=== PATIENT | female | born 1950 | race Caucasian/White ===

== ENCOUNTER 2017-10-03 22:01 | Inpatient (IN) | payer OTHER, BC ==
[~2017-10-03] VITALS: Ht 152.4 cm; Wt 96.2 kg
[2017-10-03] MEDS ORDERED: ALBUT/IPRATROP 3MG/0.5MG NEB 3 ML VIAL INH STA (22:12)
--- NOTE | 2017-10-03 22:20 | EMERGENCY ROOM VISIT NOTE ---
History Report prepared by Chava: Karen Cespedes Under the Supervision of: Dr. Praneeth Elizalde M.D. 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 The patient states that she was at [place] for shortness of breath and an elevated INR. She was transferred here for direct admission but developed sudden worsening shortness of breath en route. She reports that she has a history of COPD and notes that the medic smelled like smoke and feels that may have triggered her onset. The patient notes that she had a breathing treatment en route and her symptoms worsened after the treatment. She denies any fever. 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 A total of 10 systems reviewed and were otherwise negative. Past Medical & Surgical Medical Problems: (1) Acute respiratory failure with hypoxia (2) Acute systolic CHF (congestive heart failure), NYHA class 3 Old medical records were reviewed. Nurse's notes were reviewed and I agree with. Family History No pertinent family history stated. Social History Marital Status: single Occupation Status: retired Current/Historical Medications Scheduled Albuterol Sulf (Proventil 0.083% 2.5MG/3ML), 2.5 MG INH BID Ascorbic Acid (Chewable Vitamin C), 500 MG PO QAM Aspirin (Aspirin 81), 81 MG PO DAILY Budesonide (Inhalation) (Pulmicort Respules 0.25MG/2ML), 2 ML INH BID Cholecalciferol (Vitamin D3), 3 CAP PO DAILY Cyanocobalamin (Vitamin B-12), 1,000 MCG PO DAILY Diphenhydramine Hcl (Benadryl Allergy), 25 MG PO QAM Ezetimibe (Zetia), 10 MG PO DAILY Furosemide (Lasix), 40 MG PO QAM Hydrocortisone (Hydrocortisone), 1 APPLN TOP BID Insulin Glargine (Lantus), 45 UNITS SC QPM Magnesium Oxide (Mag-Ox), 400 MG PO AMPM Metoprolol Succ (Toprol Xl) (Toprol-Xl), 25 MG PO DAILY Montelukast Sodium (Singulair), 10 MG PO HS Mupirocin 2% (Bactroban 2%), 1 APPLN EXT BID Oxybutynin Chloride Er (Ditropan Xl), 10 MG PO DAILY Potassium (Potassium), 99 MG PO DAILY Simvastatin (Zocor), 40 MG PO QPM Tramadol (Ultram), 100 MG PO Q8 Warfarin Sod (Coumadin), 9 MG PO AMPM Scheduled PRN Albuterol Hfa (Ventolin Hfa), 2 PUFFS INH Q6H PRN for SOB/Wheezing Cyclobenzaprine Hcl (Flexeril), 10 MG PO BID PRN for Muscle Spasms Diphenhydramine Hcl (Benadryl Allergy), 25 MG PO Q4 PRN for Itching Epinephrine (Epipen), 0.3 MG IM UD PRN for Allergic Reaction Lorazepam (Ativan), 0.5 MG PO BID PRN for Anxiety Nitroglycerin (Nitrolingual Pumpspray), 0.4 MG PO UD PRN for Chest Pain Allergies Coded Allergies: Azithromycin (Verified Allergy, Severe, GI SYMPTOMS, 10/03/17) Ephedrine (Verified Allergy, Severe, GI SYMPTOMS, 10/03/17) Erythromycin (Verified Allergy, Severe, GI SYMPTOMS, 10/03/17) Hydroxyzine (Verified Allergy, Severe, GI SYMPTOMS, 10/03/17) Nitrofurantoin (Verified Allergy, Severe, GI SYMPTOMS, 10/03/17) Theophylline (Verified Allergy, Severe, GI SYMPTOMS, 10/03/17) Physical Exam Vital Signs Date Time Temp Pulse Resp B/P (MAP) Pulse Ox O2 Delivery O2 Flow Rate FiO2 10/03/17 22:53 95 10/03/17 22:35 89 22 97 BiPAP/CPAP 40 10/03/17 22:32 98 97 10/03/17 22:14 37.2 111 26 128/91 98 Nasal Cannula 4.0 10/03/17 22:13 113 Physical Exam General: ill appearing older female. HEENT: Normal cephalic atraumatic. Pupils are equal round and reactive to light. Extraocular movements are intact. Oropharynx is pink with moist mucous membranes. No swelling of the mouth lips or tongue. Neck: Supple with a midline trachea. No meningeal signs or stiffness, no JVD or bruits. No Stridor. Chest: Moderately tachypneic, complaining of shortness of breath, crackles in bases. Heart: irregularly irregular rate and rhythm. Abdomen: Soft nontender, nondistended without rebound guarding or rigidity. Extremities: No cyanosis or clubbing. Lower extremity edema noted. No calf tenderness or assymetry Spine/Back. Non tender to palpation. No CVA tenderness Skin: Good turgor without rashes. Neurologic exam: Cranial nerves two through 12 are intact. Motor and sensation are intact and symmetrical throughout. Medical Decision & Procedures ER Provider Diagnostic Interpretation: X-ray results as stated below per interpretation by me and the radiologist: CHEST ONE VIEW PORTABLE FINDINGS: There are postsurgical changes of midline sternotomy. The heart is enlarged. There is elevation of the interstitium consistent with mild pulmonary vascular congestion/fluid overload. There is no lobar consolidation. There are no pleural effusions.[ IMPRESSION: Cardiomegaly and radiographic evidence of mild congestive failure/fluid overload Electronically signed by: Lyndon Virgen M.D. 10/03/2017 10:45 PM Dictated Date/Time: 10/03/2017 10:44 PM Laboratory Results 10/03/17 22:51 Red Blood Count 3.90, Mean Corpuscular Volume 91.0, Mean Corpuscular Hemoglobin 28.5, Mean Corpuscular Hemoglobin Concent 31.3, Mean Platelet Volume 12.4, Neutrophils (%) (Auto) 75.6, Lymphocytes (%) (Auto) 17.1, Monocytes (%) (Auto) 5.8, Eosinophils (%) (Auto) 0.9, Basophils (%) (Auto) 0.3, Neutrophils # (Auto) 8.89, Lymphocytes # (Auto) 2.01, Monocytes # (Auto) 0.68, Eosinophils # (Auto) 0.10, Basophils # (Auto) 0.03 10/03/17 22:51 Test 10/03/17 22:51 White Blood Count 11.74 K/uL (4.8-10.8) Red Blood Count 3.90 M/uL (4.2-5.4) Hemoglobin 11.1 g/dL (12.0-16.0) Hematocrit 35.5 % (37-47) Mean Corpuscular Volume 91.0 fL (80-100) Mean Corpuscular Hemoglobin 28.5 pg (25-34) Mean Corpuscular Hemoglobin Concent 31.3 g/dl (32-36) Platelet Count 178 K/uL (130-400) Mean Platelet Volume 12.4 fL (7.4-10.4) Neutrophils (%) (Auto) 75.6 % Lymphocytes (%) (Auto) 17.1 % Monocytes (%) (Auto) 5.8 % Eosinophils (%) (Auto) 0.9 % Basophils (%) (Auto) 0.3 % Neutrophils # (Auto) 8.89 K/uL (1.4-6.5) Lymphocytes # (Auto) 2.01 K/uL (1.2-3.4) Monocytes # (Auto) 0.68 K/uL (0.11-0.59) Eosinophils # (Auto) 0.10 K/uL (0-0.5) Basophils # (Auto) 0.03 K/uL (0-0.2) RDW Standard Deviation 52.8 fL (36.4-46.3) RDW Coefficient of Variation 15.9 % (11.5-14.5) Immature Granulocyte % (Auto) 0.3 % Immature Granulocyte # (Auto) 0.03 K/uL (0.00-0.02) Prothrombin Time 28.6 SECONDS (9.0-12.0) Prothromb Time International Ratio 2.8 (0.9-1.1) Activated Partial Thromboplast Time 35.4 SECONDS (21.0-31.0) Partial Thromboplastin Ratio 1.4 Anion Gap 8.0 mmol/L (3-11) Est Creatinine Clear Calc Drug Dose 69.1 ml/min Estimated GFR () 78.8 Estimated GFR (Non- 68.0 BUN/Creatinine Ratio 24.5 (10-20) Calcium Level 8.4 mg/dl (8.5-10.1) Total Bilirubin 0.6 mg/dl (0.2-1) Direct Bilirubin 0.3 mg/dl (0-0.2) Aspartate Amino Transf (AST/SGOT) 224 U/L (15-37) Alanine Aminotransferase (ALT/SGPT) 142 U/L (12-78) Alkaline Phosphatase 117 U/L (45-117) Total Creatine Kinase 137 U/L (26-192) Creatine Kinase MB 3.2 ng/ml (0.5-3.6) Creatine Kinase MB Ratio 2.3 (0-3.0) Total Protein 6.8 gm/dl (6.4-8.2) Albumin 3.5 gm/dl (3.4-5.0) Lipase 110 U/L (73-393) Laboratory studies as stated above per my review. Medications Administered Medications (Trade) Dose Ordered Sig/Naun Route Start Time Stop Time Status Last Admin Dose Admin Albuterol/ Ipratropium (Duoneb) 3 ml NOW STAT INH 10/03/17 22:12 10/03/17 22:15 DC 10/03/17 22:12 3 ML ECG Indication: chest pain, SOB/dyspnea Rate (beats per minute): 119 Rhythm: atrial fibrillation Findings: LBBB, other (poor baseline) Comparison ECG Date: no prior available ED Course 2208: Past medical records reviewed. The patient was evaluated in room C2, and a complete history and physical examination were performed. 2212: Duoneb 3ml INH. 2247: I reevaluated the patient. She is doing well. 2319: Discussed the patient's case with Dr. Rutledge of [facility]. The patient will be evaluated for further management. 2322: Upon reevaluation, the patient is doing well. I discussed the results and treatment plan with the patient. She verbalized agreement of the treatment plan. The patient will be evaluated for further management. Medical Decision Differentials include, but are not limited to; CHF, COPD, pneumonia, sepsis, arrhythmia electrolyte or metabolic abnormality. This patient comes in as described above. She is sent from [place] as a direct admit but on route she got significantly worse and had shortness of breath so they put her in C1 and overhead paged for a doctor STAT. I promptly went into the room and she was tachypneic. She apparently had a significant elevated INR today and received fluids in the form of FFP. She also received Lasix. She also said in the room route in the ambulance that one of the paramedics smell like smoke on his clothes and that triggers her breathing at times as well. Her lungs sounded crackly and I believe she is in CHF. We called respiratory started her on BiPAP which she responded to very well and was comfortable. We also gave her albuterol Atrovent nebs. EKG shows A. fib without ischemic changes chest x-ray shows congestive heart failure. Her blood work was otherwise not significantly abnormal. She does need to be admitted Dr. Howard who saw her in the ER will admit her for further treatment and evaluation and he has ordered additional Lasix. Medication Reconcilliation Current Medication List: was personally reviewed by me Blood Pressure Screening Patient's blood pressure: Normal blood pressure Blood pressure disposition: Did not require urgent referral Consults Time Called: 2309 Consulting Physician: Dr. Rutledge - [facility] Returned Call: [phone] Discussed the patient's case with Dr. Rutledge of [facility]. The patient will be evaluated for further management. Impression Primary Impression: CHF (congestive heart failure) Additional Impression: Respiratory failure Critical Care I have personally spent greater than 30 minutes of critical care time in the direct management of this patient. This includes bedside care, interpretation of diagnostic studies, and testing, discussion with consultants, patient, and family members, and other required patient management activities. This 30 minutes is in excess of all separately billable procedures. Scribe Attestation The scribe's documentation has been prepared under my direction and personally reviewed by me in its entirety. I confirm that the note above accurately reflects all work, treatment, procedures, and medical decision making performed by me. Departure Information Dispostion Being Evaluated By Hospitalist Referrals John Howard M.D. (PCP) Patient Instructions My [facility] Problem Qualifiers
[2017-10-03 22:32] VITALS: PULSE 98; O2SAT 97
[2017-10-03 22:35] VITALS: PULSE 89; O2SAT 97
--- NOTE | 2017-10-03 22:46 | DIAGNOSTIC IMAGING REPORT ---
CHEST ONE VIEW PORTABLE CLINICAL HISTORY: Atypical chest pain COMPARISON STUDY: No previous studies for comparison. FINDINGS: There are postsurgical changes of midline sternotomy. The heart is enlarged. There is elevation of the interstitium consistent with mild pulmonary vascular congestion/fluid overload. There is no lobar consolidation. There are no pleural effusions.[ IMPRESSION: Cardiomegaly and radiographic evidence of mild congestive failure/fluid overload Electronically signed by: Lyndon Virgen M.D. 10/03/2017 10:45 PM Dictated Date/Time: 10/03/2017 10:44 PM
[2017-10-03 23:18] LABS: BASO % 0.3 %; BASO ABS # 0.03 K/uL (0-0.2); EOS % 0.9 %; HEMATOCRIT 35.5 % (37-47); HEMOGLOBIN 11.1 g/dL (12.0-16.0); IG# 0.03 K/uL (0.00-0.02); LYMPH % 17.1 %; LYMPH ABS # 2.01 K/uL (1.2-3.4); MEAN CORPUSCULAR HEMOGLOBIN 28.5 pg (25-34); MEAN CORPUSCULAR HGB CONC 31.3 g/dl (32-36); MEAN PLATELET VOLUME 12.4 fL (7.4-10.4); MONO % 5.8 %; MONO ABS # 0.68 K/uL (0.11-0.59); NEUT % 75.6 %; NEUT ABS # 8.89 K/uL (1.4-6.5); PLATELET COUNT 178 K/uL (130-400); RED CELL DISTRIBUTION WIDTH CV 15.9 % (11.5-14.5); RED CELL DISTRIBUTION WIDTH SD 52.8 fL (36.4-46.3); WHITE BLOOD COUNT 11.74 K/uL (4.8-10.8)
[2017-10-03] MEDS ORDERED: CYAN10005 PO (23:20)
[2017-10-03] MEDS ORDERED: ASPI-435 PO (23:20)
[2017-10-03] MEDS ORDERED: MAGN400T6 PO (23:20)
[2017-10-03] MEDS ORDERED: ASCO500C19 PO (23:20)
[2017-10-03] MEDS ORDERED: EPP3/2 IM (23:21)
[2017-10-03] MEDS ORDERED: VNTHFA/IN INH (23:21)
[2017-10-03] MEDS ORDERED: FRS/40 PO (23:22)
[2017-10-03] MEDS ORDERED: ALBINS/ INH (23:22)
[2017-10-03] MEDS ORDERED: BUDE0.253 INH (23:22)
[2017-10-03] MEDS ORDERED: METO25TA3 PO (23:22)
[2017-10-03] MEDS ORDERED: MONT1TAB3 PO (23:24)
[2017-10-03] MEDS ORDERED: NITR0.4S74 PO (23:24)
[2017-10-03] MEDS ORDERED: SIMV40TA2 PO (23:24)
[2017-10-03] MEDS ORDERED: EZET10TA63 PO (23:24)
[2017-10-03] MEDS ORDERED: TRAM-10 PO (23:24)
[2017-10-03 23:29] LABS: INR 2.8 (0.9-1.1); PTT PATIENT 35.4 SECONDS (21.0-31.0)
[2017-10-03] MEDS ORDERED: POTA99TA PO (23:29)
[2017-10-03] MEDS ORDERED: CMD3 PO (23:29)
[2017-10-03] MEDS ORDERED: BCTCR/30 EXT (23:29)
[2017-10-03] MEDS ORDERED: INSDGI SC (23:29)
[2017-10-03] MEDS ORDERED: HYDCR25 TOP (23:29)
[2017-10-03] MEDS ORDERED: OXYB10TA PO (23:29)
[2017-10-03] MEDS ORDERED: CYCL10TA6 PO (23:29)
[2017-10-03] MEDS ORDERED: DIPH25CA65 PO ×2 (23:31)
[2017-10-03] MEDS ORDERED: LORA-741 PO (23:32)
[2017-10-03] MEDS ORDERED: CHOL2000 PO (23:32)
--- NOTE | 2017-10-03 23:41 | History and Physical ---
History & Physical Date & Time of Service: Oct 03, 2017 at 23:41 Chief Complaint: Chest Pain Primary Care Physician: John Howard M.D. History of Present Illness Source: patient, hospital records The patient is a 66-year-old female who was accepted in transfer from [facility] emergency department after having laboratories showing a supratherapeutic INR of greater than 8, and elevated troponin of 0.068. While at [facility], she received vitamin K 10 mg by mouth and 2 units of FFP. Upon arrival to the emergency department at [facility], she was found to be acutely short of breath, and diverted from direct admission status to the ED for further urgent assessment. She was found to be hypoxic, with pulse ox in the low 80s, and had relatively quick improvement when placed on BiPAP with settings 12/6 at 40% FiO2. Family History Noncontributory Social History Smoking Status: Never Smoker Smokeless Tobacco Use: No Alcohol Use: none Drug Use: none Marital Status: single Occupational Status: retired Immunizations History of Influenza Vaccine: Unknown History of Tetanus Vaccine?: Unknown History of Pneumococcal: Unknown History of Hepatitis B Vaccine: Unknown Multi-Drug Resistant Organisms History of MDRO: No Allergies Coded Allergies: Azithromycin (Verified Allergy, Severe, GI SYMPTOMS, 10/03/17) Ephedrine (Verified Allergy, Severe, GI SYMPTOMS, 10/03/17) Erythromycin (Verified Allergy, Severe, GI SYMPTOMS, 10/03/17) Hydroxyzine (Verified Allergy, Severe, GI SYMPTOMS, 10/03/17) Nitrofurantoin (Verified Allergy, Severe, GI SYMPTOMS, 10/03/17) Theophylline (Verified Allergy, Severe, GI SYMPTOMS, 10/03/17) Home Medications Scheduled Albuterol Sulf (Proventil 0.083% 2.5MG/3ML), 2.5 MG INH BID Ascorbic Acid (Chewable Vitamin C), 500 MG PO QAM Aspirin (Aspirin 81), 81 MG PO DAILY Budesonide (Inhalation) (Pulmicort Respules 0.25MG/2ML), 2 ML INH BID Cholecalciferol (Vitamin D3), 3 CAP PO DAILY Cyanocobalamin (Vitamin B-12), 1,000 MCG PO DAILY Diphenhydramine Hcl (Benadryl Allergy), 25 MG PO QAM Ezetimibe (Zetia), 10 MG PO DAILY Furosemide (Lasix), 40 MG PO QAM Hydrocortisone (Hydrocortisone), 1 APPLN TOP BID Insulin Glargine (Lantus), 45 UNITS SC QPM Magnesium Oxide (Mag-Ox), 400 MG PO AMPM Metoprolol Succ (Toprol Xl) (Toprol-Xl), 25 MG PO DAILY Montelukast Sodium (Singulair), 10 MG PO HS Mupirocin 2% (Bactroban 2%), 1 APPLN EXT BID Oxybutynin Chloride Er (Ditropan Xl), 10 MG PO DAILY Potassium (Potassium), 99 MG PO DAILY Simvastatin (Zocor), 40 MG PO QPM Tramadol (Ultram), 100 MG PO Q8 Warfarin Sod (Coumadin), 9 MG PO AMPM Scheduled PRN Albuterol Hfa (Ventolin Hfa), 2 PUFFS INH Q6H PRN for SOB/Wheezing Cyclobenzaprine Hcl (Flexeril), 10 MG PO BID PRN for Muscle Spasms Diphenhydramine Hcl (Benadryl Allergy), 25 MG PO Q4 PRN for Itching Epinephrine (Epipen), 0.3 MG IM UD PRN for Allergic Reaction Lorazepam (Ativan), 0.5 MG PO BID PRN for Anxiety Nitroglycerin (Nitrolingual Pumpspray), 0.4 MG PO UD PRN for Chest Pain Review of Systems The patient denies chest pain, sore throat, fevers, chills, sweats, nausea, vomiting, diarrhea or constipation, abdominal pain, pelvic pain, blood in urine or stool, dysuria, urinary frequency or urgency, memory loss, loss of consciousness, rash, imbalance, focal weakness, numbness or tingling in arms or legs, generalized arthralgias or myalgias, back or neck pain, or night sweats. The review of systems is otherwise negative other than for that already noted above, and at least 10 systems have been reviewed. Physical Exam Vital Signs Date Time Temp Pulse Resp B/P (MAP) Pulse Ox O2 Delivery O2 Flow Rate FiO2 10/03/17 22:53 95 10/03/17 22:35 89 22 97 BiPAP/CPAP 40 10/03/17 22:32 98 97 10/03/17 22:14 37.2 111 26 128/91 98 Nasal Cannula 4.0 10/03/17 22:13 113 Upon initial arrival to the ED at [facility], The patient is awake, alert and oriented 3, normocephalic and atraumatic, placed in bed, and was in moderately severe respiratory distress with paradoxic accessory muscle use. HEENT--PERRL, EOMI, mucous membranes and oropharynx dry. Neck--supple, + JVD. No bruits. thyroid normal, trachea midline, no adenopathy. Heart--tachycardic, no murmurs, rubs or gallops. Lungs--crackles throughout. Moderately severe respiratory distress, with paradoxic accessory muscle use. Abdomen--normal bowel sounds and soft, nontender. Distended and tympanitic. Extremities--no cyanosis, clubbing. Bilateral pretibial 1+ pitting edema. There are good distal pulses b/l. Dermatologic--normal skin turgor, normal color, warm and dry, no abnormal lymph nodes, no rash. Neurologic--cranial nerves II through XII grossly intact. Rheumatologic--normal range of motion. Psychiatric--normal affect. Diagnostics Laboratory Results Results Past 24 Hours Test 10/03/17 22:12 10/03/17 22:51 Range/Units Creatine Kinase MB Ratio 0-3.0 White Blood Count 11.74 4.8-10.8 K/uL Red Blood Count 3.90 4.2-5.4 M/uL Hemoglobin 11.1 12.0-16.0 g/dL Hematocrit 35.5 37-47 % Mean Corpuscular Volume 91.0 80-100 fL Mean Corpuscular Hemoglobin 28.5 25-34 pg Mean Corpuscular Hemoglobin Concent 31.3 32-36 g/dl Platelet Count 178 130-400 K/uL Mean Platelet Volume 12.4 7.4-10.4 fL Neutrophils (%) (Auto) 75.6 % Lymphocytes (%) (Auto) 17.1 % Monocytes (%) (Auto) 5.8 % Eosinophils (%) (Auto) 0.9 % Basophils (%) (Auto) 0.3 % Neutrophils # (Auto) 8.89 1.4-6.5 K/uL Lymphocytes # (Auto) 2.01 1.2-3.4 K/uL Monocytes # (Auto) 0.68 0.11-0.59 K/uL Eosinophils # (Auto) 0.10 0-0.5 K/uL Basophils # (Auto) 0.03 0-0.2 K/uL RDW Standard Deviation 52.8 36.4-46.3 fL RDW Coefficient of Variation 15.9 11.5-14.5 % Immature Granulocyte % (Auto) 0.3 % Immature Granulocyte # (Auto) 0.03 0.00-0.02 K/uL Prothrombin Time 28.6 9.0-12.0 SECONDS Prothromb Time International Ratio 2.8 0.9-1.1 Activated Partial Thromboplast Time 35.4 21.0-31.0 SECONDS Partial Thromboplastin Ratio 1.4 Microbiology Results 10/03/17 Blood Culture, Received Pending 10/03/17 Blood Culture, Received Pending Diagnostic Radiology Patient Name: TORIN ANDERS Unit Number: [id number] Dictated: 10/03/172243 Transcribed: 10/03/172243 ARG Printed Date/Time: [~ rep prt dt]/[~ rep prt tm] [~ rep ct labl] - [~ rep ct ivnm] [facility] [place] [address] Dictated: 10/03/172243 Transcribed: 10/03/172243 ARG Printed Date/Time: [~ rep prt dt]/[~ rep prt tm] [~ rep ct labl] - [~ rep ct ivnm] CHEST ONE VIEW PORTABLE CLINICAL HISTORY: Atypical chest pain COMPARISON STUDY: No previous studies for comparison. FINDINGS: There are postsurgical changes of midline sternotomy. The heart is enlarged. There is elevation of the interstitium consistent with mild pulmonary vascular congestion/fluid overload. There is no lobar consolidation. There are no pleural effusions.[ IMPRESSION: Cardiomegaly and radiographic evidence of mild congestive failure/fluid overload Electronically signed by: Lyndon Virgen M.D. 10/03/2017 10:45 PM Dictated Date/Time: 10/03/2017 10:44 PM The status of this report is Signed. Draft = Not yet reviewed or approved by Radiologist. Signed = Reviewed and approved by Radiologist. <AttendingPhy></AttendingPhy> <FamilyPhy>John Howard M.D.</FamilyPhy> < PrimaryPhy>John Howard M.D.</PrimaryPhy> <UnitNumber>[id number]</UnitNumber> < VisitNumber>[id number]</VisitNumber> <PatientName>TORIN ANDERS</PatientName> <DateOfBirth>1950</DateOfBirth> <Location>[facility]</Location> <ServiceDate></ServiceDate> <MNE>ESINDI</MNE> <OrderingPhy>Praneeth Elizalde M.D.</ OrderingPhy> <OrderingPhyMNE>f rep ord dr woods</OrderingPhyMNE> <DictatingPhyMNE> f rep dict dr woods</DictatingPhyMNE> <CCListMNE>f rep ct peggy</CCListMNE> < AdmittingPhyMNE>f pt admit dr woods</AdmittingPhyMNE> <AttendingPhyMNE>f pt attend dr woods</AttendingPhyMNE> <ConsultingPhyMNE>f pt consult dr woods</ConsultingPhyMNE> <FamilyPhyMNE>f pt fam dr woods</FamilyPhyMNE> <OtherPhyMNE>f pt other dr woods</OtherPhyMNE> < PrimaryPhyMNE>f pt prim care dr woods</PrimaryPhyMNE> <ReferringPhyMNE>f pt referring dr woods</ReferringPhyMNE> EKG EKG shows atrial fibrillation with RVR at 119 bpm, left bundle branch block, PVCs, no acute ST-T changes. Impression Assessment and Plan Acute respiratory failure with hypoxia likely secondary to administration of 2 units of FFP while at [facility] ED to reverse supratherapeutic INR greater than 8/upon arrival we found that patient does have a [place] with an LVAD placed as well-- The patient will be admitted to telemetry for serial cardiac enzymes, cardiac rhythm monitoring and a 2-D echocardiogram with Dopplers. Continue BiPAP 12/6 with 40% FiO2. Chest x-ray shows congestive heart failure Give Lasix 40 mg IV now, and 40 mg IV every morning. Taper BiPAP to nasal cannula when clinically improved. Continue aspirin 81 mg daily, hold oral furosemide 40 mg every morning, continue metoprolol succinate ER [address] on potassium 40 mEq by mouth 3 times a day, as entrance potassium in the ED here was 3.2. Continue on mag oxide 400 mg by mouth twice a day. Patient reports that her warfarin dosing had been 3 mg in the morning and 12 mg in the evening, and was recently changed to 9 mg twice a day. Patient's INR had been supratherapeutic at greater than 8 we'll clear for hospital, and repeat at [facility] is 2.8. Repeat INR in the a.m., and pending that result, we will dose Coumadin at that time. Consult cardiology. Diabetes mellitus-- Continue Lantus insulin 45 units subcutaneous every evening. Place on Accu-Cheks before meals and at bedtime with NovoLog coverage per scale. Next Hyperlipidemia-- Continue simvastatin 40 mg every evening and Zetia 10 mg daily COPD-- Continue Pulmicort Respules twice a day Continue Singulair 10 mg at bedtime Continue albuterol nebulizer every 4 hours while awake and every 2 hours when necessary. Level of Care Telemetry Advanced Directives Existing Advance Directive: No Existing Living Will: No Existing Power of Maintenance Specialist: No Resuscitation Status FULL RESUSCITATION VTE Prophylaxis VTE Risk Assessment Done? Y/N: Yes Risk Level: Moderate Given or contraindicated: Warfarin (Coumadin) Note Total Time: Critical Care 30 - 74 minutes
[2017-10-03 23:46] LABS: ALBUMIN 3.5 gm/dl (3.4-5.0); CALCIUM 8.4 mg/dl (8.5-10.1); CREATININE 0.88 mg/dl (0.60-1.20); POTASSIUM 3.2 mmol/L (3.5-5.1)
[2017-10-03 23:51] LABS: CKMB 3.2 ng/ml (0.5-3.6); TOTAL PROTEIN 6.8 gm/dl (6.4-8.2)
[2017-10-04] VITALS (9 sets, daily range): BP systolic 115–182; BP diastolic 68–82; PULSE 73–110; TEMP 36.4–37.1; O2SAT 95–100; BMI 46.5
[2017-10-04] MEDS ORDERED: NITROGLYCERIN 0.4 MG SL PER TAB CHARGE SL PRN
[2017-10-04] MEDS ORDERED: POTASSIUM CHLORIDE 20 MEQ TABCR PO STA (00:05)
[2017-10-04] MEDS ORDERED: FUROSEMIDE 40 MG/4 ML VIAL IV STA (00:06)
[2017-10-04] MEDS ORDERED: CYCLOBENZAPRINE HCL 10 MG TAB PO PRN (00:15)
[2017-10-04] MEDS ORDERED: GLUCOSE 40% GEL 15 GM TUBE PO PRN (00:15)
[2017-10-04] MEDS ORDERED: GLUCOSE 10 TABS/TUBE PO PRN (00:15)
[2017-10-04] MEDS ORDERED: GLUCAGON FOR INJ 1 MG VIAL SQ PRN (00:15)
[2017-10-04] MEDS ORDERED: ONDANSETRON 8MG OD TAB PO PRN (00:15)
[2017-10-04] MEDS ORDERED: NITROGLYCERIN SL SPR 4.9 GM BTL SL PRN (00:15)
[2017-10-04] MEDS ORDERED: DEXTROSE 50% 50 ML SYR IV PRN (00:15)
[2017-10-04] MEDS ORDERED: ALBUTEROL HFA 8 GM INHALER INH PRN (00:15)
[2017-10-04] MEDS ORDERED: FUROSEMIDE 40 MG/4 ML VIAL ONE (00:41)
[2017-10-04] MEDS ORDERED: POTASSIUM CHLORIDE 10 MEQ TABCR ONE (00:41)
[2017-10-04 01:57] LABS: HEP C IGG 13 YRS+OLDER_RFLX NEG (NEG)
[2017-10-04] MEDS: TRAMADOL HCL 50 MG TAB PO SCH ×3 (05:19→21:36)
[2017-10-04] MEDS: ALBUTEROL 0.083% NEBU SOLN 3 ML VIAL INH SCH ×2 (07:06→19:33)
[2017-10-04] MEDS: BUDESONIDE 0.25 MG/2 ML VIAL (PULMICORT) INH SCH ×2 (07:06→19:33)
[2017-10-04] MEDS: ASPIRIN 81 MG ECTAB PO SCH (07:32)
[2017-10-04] MEDS: FUROSEMIDE INJ 40 MG in SYRINGE 0 ML IV SCH (07:32)
[2017-10-04] MEDS: MAGNESIUM OXIDE 400 MG TAB PO SCH ×2 (07:32→20:06)
[2017-10-04] MEDS: OXYBUTYNIN CHLORIDE 5 MG TABCR PO SCH (07:33)
[2017-10-04] MEDS: ASCORBIC ACID 500 MG TAB PO SCH (07:33)
[2017-10-04] MEDS: CHOLECALCIFEROL 1000 INTER.UNIT TAB PO SCH (07:33)
[2017-10-04] MEDS: METOPROLOL SUCC 25MG EXT REL TAB PO SCH (07:33)
[2017-10-04] MEDS: POTASSIUM CHLORIDE 20 MEQ TABCR PO SCH ×2 (07:34→20:07)
[2017-10-04] MEDS: EZETIMIBE 10MG TAB PO SCH (07:34)
[2017-10-04] MEDS: HYDROCORTISONE 2.5% CR 30 GM TUBE EXT SCH ×2 (07:34→20:09)
[2017-10-04] MEDS: MUPIROCIN 2% OINT 22 GM TUBE EXT SCH ×2 (07:34→20:09)
[2017-10-04] MEDS: CYANOCOBALAMIN 500 MCG TAB (VIT B-12) PO SCH (07:34)
[2017-10-04] MEDS: INSULIN ASPART 100 UNITS/ML 3 ML PEN SC SCH ×4 (07:42→21:37)
[2017-10-04 09:04] LABS: CKMB 3.1 ng/ml (0.5-3.6)
[2017-10-04 10:05] LABS: INR 2.6 (0.9-1.1)
[2017-10-04 10:25] LABS: CALCIUM 8.6 mg/dl (8.5-10.1); CREATININE 0.86 mg/dl (0.60-1.20); POTASSIUM 3.5 mmol/L (3.5-5.1)
[2017-10-04] MEDS: LORAZEPAM 0.5 MG TAB PO PRN ×2 (11:23→23:40)
--- NOTE | 2017-10-04 11:25 | DIAGNOSTIC IMAGING REPORT ---
ULTRASOUND RIGHT UPPER QUADRANT ABDOMEN CLINICAL HISTORY: Elevated hepatic transaminases. COMPARISON STUDY: No priors. TECHNIQUE: Real-time, grayscale, and color flow sonography of the right upper quadrant of the abdomen was performed. Images are reviewed in the transverse and longitudinal planes. FINDINGS: Liver: The liver is normal in size and echotexture. The liver appears elongated, possibly representing Dolores's lobe variant anatomy. There is mild central intrahepatic biliary ductal dilatation. The main portal vein is patent. Gallbladder: The gallbladder is surgically absent. The common bile duct measures up to 1.1 cm in diameter at the head of the pancreas. Pancreas: Visualized portions of the pancreatic head and body are normal in appearance. Right kidney: Survey images of the right kidney demonstrate normal size and echotexture. There is no hydronephrosis. Ascites: None. IMPRESSION: 1. No acute sonographic abnormality is seen involving the liver. 2. Status post cholecystectomy. Electronically signed by: Bennie Alcaraz M.D. 10/04/2017 11:24 AM Dictated Date/Time: 10/04/2017 11:22 AM
--- NOTE | 2017-10-04 12:16 | ECHOCARDIOGRAM REPORT ---
*NOTICE TO RECEIVING CONSTITUTION PARTY AGENCY This information is strictly Confidential and protected under [place] law. [place] law prohibits you from making any further disclosure of this information unless further disclosure is expressly permitted by the written consent of the person to whom it pertains or is authorized by law. A general authorization for the release of medical or other information is not sufficient for this purpose. Hospital accepts no responsibility if the information is made available to any other person, INCLUDING THE PATIENT. Interpretation Summary * Name: TORIN ANDERS Study Date: 10/04/2017 08:06 AM BP: 115/68 mmHg * Patient Location: C.2T\S\E218\S\1 HR: 82 * : 1950 (M/d/yyyy) Gender: Female Height: 60 in * Age: 66 yrs Ethnicity: CA Weight: 238 lb * Ordering Physician: Reza Rutledge * Referring Physician: Self, Referred * Performed By: Evy Clarke RCS * * Reason For Study: CHF * BSA: 2.0 m2 * -- Conclusions -- * 1. Mildly dilated LV with mild concentric LVH. * 2. Moderate to severe global LV dysfunction. LVEF 30-35%. Abnormal septal motion consistent with conduction abnormality. * 3. Mildly dilated RV. Normal RV function. * 4. Moderate (PV 3.9, MG 28, FRANCESCO 0.97, DI 0.31). * 5. Mild to moderate MR. * 6. Grade II diastolic dysfunction. * 7. Moderate pulmonary hypertension. Est PASP 50-55 mmHg. RA 8 mmHg. * 8. No prior study for comparison. Procedure Details * A complete two-dimensional transthoracic echocardiogram was performed (2D, M-mode, Doppler and color flow Doppler). Left Ventricle * The left ventricle is mildly dilated. * There is mild concentric left ventricular hypertrophy. * Ejection Fraction = 30-35%. * Septal motion is consistent with conduction abnormality. * There is moderate to severe global hypokinesis of the left ventricle. Right Ventricle * The right ventricle is mildly dilated. * The right ventricular systolic function is normal as assessed by tricuspid annular plane systolic excursion (TAPSE) (normal >1.5 cm). Atria * The left atrium is severely dilated. * The right atrium is mildly dilated. * No ASD detected; PFO is not assessed. Mitral Valve * The mitral valve is grossly normal. * There is mild mitral annular calcification. * There is no mitral valve stenosis. * There is mild to moderate mitral regurgitation. Tricuspid Valve * There is trace tricuspid regurgitation. * Right ventricular systolic pressure is elevated at 50-60mmHg. Aortic Valve * Moderate valvular aortic stenosis. * PV 3.9, MG 28, FRANCESCO 0.97, DI 0.31 * There is no significant aortic regurgitation. Pulmonic Valve * The pulmonary valve is inadequately visualized, but the Doppler data is adequate for interpretation. * There is no pulmonic valvular stenosis. * There is no significant pulmonary regurgitation. * Trace pulmonic valvular regurgitation. Great Vessels * The aortic root and proximal ascending aorta are normal sized. Pericardium/Pleural * There is no pericardial effusion. Great Vessels * IVC < 2.1, <50% change with respiration. Est RA 8 mmHg. PASP 50-55 mmHg. Left Ventricular Diastolic Function * Diastolic dysfunction, Grade II, consistent with elevated left atrial pressure. MMode 2D Measurements and Calculations IVSd 1.4 cm IVSs 1.7 cm LVIDd 5.9 cm LVIDs 5.0 cm LVPWd 1.5 cm LVPWs 1.5 cm IVS/LVPW 0.97 FS 14.9 % EDV(Teich) 173.5 ml ESV(Teich) 119.7 ml EF(Teich) 31.0 % EDV(cubed) 205.8 ml ESV(cubed) 127.0 ml EF(cubed) 38.3 % % IVS thick 20.4 % % LVPW thick 3.0 % LV mass(C)d 393.3 grams LV mass(C)dI 195.7 grams/m\S\2 LV mass(C)s 360.2 grams LV mass(C)sI 179.2 grams/m\S\2 SV(Teich) 53.8 ml SI(Teich) 26.8 ml/m\S\2 SV(cubed) 78.8 ml SI(cubed) 39.2 ml/m\S\2 LVOT diam 2.0 cm LVOT area 3.1 cm\S\2 LVAd ap4 37.7 cm\S\2 LVLd ap4 7.8 cm EDV(MOD-sp4) 149.1 ml EDV(sp4-el) 155.1 ml LVAs ap4 25.6 cm\S\2 LVLs ap4 6.7 cm ESV(MOD-sp4) 81.5 ml ESV(sp4-el) 83.6 ml EF(MOD-sp4) 45.3 % EF(sp4-el) 46.1 % LVAd ap2 33.6 cm\S\2 LVLd ap2 8.1 cm EDV(MOD-sp2) 106.5 ml EDV(sp2-el) 117.6 ml LVAs ap2 26.6 cm\S\2 LVLs ap2 7.3 cm ESV(MOD-sp2) 78.7 ml ESV(sp2-el) 81.9 ml EF(MOD-sp2) 26.1 % EF(sp2-el) 30.4 % LVLd %diff 4.6 % EDV(MOD-bp) 132.5 ml LVLs %diff 8.9 % ESV(MOD-bp) 84.9 ml EF(MOD-bp) 35.9 % SV(MOD-sp4) 67.5 ml SI(MOD-sp4) 33.6 ml/m\S\2 SV(MOD-sp2) 27.8 ml SI(MOD-sp2) 13.8 ml/m\S\2 SV(MOD-bp) 47.6 ml SI(MOD-bp) 23.7 ml/m\S\2 SV(sp4-el) 71.6 ml SI(sp4-el) 35.6 ml/m\S\2 SV(sp2-el) 35.7 ml SI(sp2-el) 17.8 ml/m\S\2 Doppler Measurements and Calculations MV E max christine 144.5 cm/sec MV A max christine 77.6 cm/sec MV E/A 1.9 MV P1/2t max christine 141.5 cm/sec MV P1/2t 40.1 msec MVA(P1/2t) 5.5 cm\S\2 MV dec slope 1034.6 cm/sec\S\2 MV dec time 0.15 sec Ao V2 max 391.0 cm/sec Ao max PG 61.2 mmHg Ao max PG (full) 56.0 mmHg Ao V2 mean 243.4 cm/sec Ao mean PG 28.5 mmHg Ao mean PG (full) 25.7 mmHg Ao V2 VTI 72.1 cm FRANCESCO(I,A) 0.97 cm\S\2 FRANCESCO(I,D) 0.97 cm\S\2 FRANCESCO(V,A) 0.90 cm\S\2 FRANCESCO(V,D) 0.90 cm\S\2 LV V1 max PG 5.1 mmHg LV V1 mean PG 2.8 mmHg LV V1 max 113.2 cm/sec LV V1 mean 78.7 cm/sec LV V1 VTI 22.6 cm MR max christine 514.3 cm/sec MR max PG 105.8 mmHg SV(LVOT) 70.0 ml SI(LVOT) 34.8 ml/m\S\2 PA V2 max 136.3 cm/sec PA max PG 7.4 mmHg TR max christine 344.6 cm/sec
--- NOTE | 2017-10-04 13:07 | CARDIOLOGY CONSULTATION REPORT ---
DATE OF CONSULTATION: 10/04/2017 REASON FOR CONSULTATION: 1. Acute on chronic systolic heart failure. 2. Cardiomyopathy, patient reports LVEF of approximately 35%. 3. Paroxysmal ventricular tachycardia, (currently wearing Zoll LifeVest which began in July 2017). 4. Supratherapeutic INR. 5. Paroxysmal atrial fibrillation. 6. Elevated troponin I level. HISTORY OF PRESENT ILLNESS: Mrs. Arellano is a very pleasant 66-year-old obese white female with a history of longstanding asthma, insulin requiring type 2 diabetes mellitus (she was diagnosed with diabetes mellitus 15 years ago), hypertension, dyslipidemia, CAD status post RCA stent remotely (Taxus drug-eluting stent), aortic valvular disease status post [facility] Nish mechanical AVR 2001 (on chronic Coumadin anticoagulation), who was noted to have a supratherapeutic INR yesterday of greater than 8.0 (on home testing monitor) so she contacted her vessel scrapper office (Dr. Javi Ghotra). They referred her to the emergency room for reversal of coagulopathy. She did complain of mild dyspnea at [facility], but was not having any active bleeding. She was given 10 mg of vitamin K followed by 2 units of fresh frozen plasma. She was also noted to have an elevated pro-BNP and did have mild complaints of dyspnea while in the Emergency Room. 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 There was no room for the patient at [facility] or at [facility] -- so she was transferred here. The patient began to note increasing shortness of breath following transfusion of fresh frozen plasma, but it did not significantly worse at that time. She was subsequently transported to our facility by ambulance, and her breathing got progressively worse on the ride here because one of the mirror department supervisor was apparently a smoker which aggravated Mrs. Arellano' COPD/asthma. When she arrived in the Emergency Room she was noted to be markedly hypoxic with an O2 sat in the low 80s, and had brief period of rapid atrial fibrillation (which is a new diagnosis for her). Additionally she had a mildly elevated troponin I which has trended upward, and chest x-ray showed evidence of CHF. The patient was placed on BiPAP and supplemental oxygen, and was also given IV Lasix. She has had a good diuretic response with her body weight being down 8 pounds since yesterday, and having a negative fluid balance of 1500 mL (suspect the weight measurements are incorrect as she was weighed on 2 different scales, and her negative fluid balance doses not match up with the amount of weight that she is down). At the present time, the patient remains mildly short of breath, but has good oxygen saturations. Her breathing status is not quiet at baseline yet. She denies any chest pain, heaviness, tightness, pressure, or angina pectoris. She denies any PND, but does sleep in a propped up position. She denies any palpitations, tachy palpitations, syncope, or near syncope. The patient further denies any shocks from her LifeVest, and her LifeVest interrogations thus far have been negative for any arrhythmias. MEDICATIONS: 1. Lantus insulin 45 units subcutaneous injection each evening. 2. Singulair 10 mg daily. 3. Aspirin 81 mg daily. 4. Warfarin 10 mg daily (currently on hold). 5. Vitamin B12 1000 mcg daily. 6. Zetia 10 mg daily. 7. Hydrocortisone cream applied to affected area b.i.d. 8. Mag oxide 400 mg b.i.d. 9. Toprol XL 25 mg daily. 10. Ditropan XL 10 mg daily. 11. Vitamin C 500 mg each morning. 12. Mupirocin ointment applied to the affected area b.i.d. 13. Vitamin D 2000 international units daily. 14. Lasix 40 mg IV daily. 15. KCL 40 mEq b.i.d. 16. Albuterol nebulizer b.i.d. 17. Pulmicort Respules 0.5 mg b.i.d. 18. NovoLog sliding insulin. 19. Tramadol 100 mg p.o. q.8 hours. 20. Zofran 8 mg p.o. q.6 hours p.r.n. for nausea. 21. Albuterol MDI 2 puffs p.o. q.6 hours p.r.n. for shortness of breath or wheezing. 22. Flexeril 10 mg b.i.d. p.r.n. for muscle spasms. 23. Diphenhydramine 25 mg p.o. q.4 hours p.r.n. for itching. 24. Lorazepam 0.5 mg b.i.d. p.r.n. for anxiety. 25. Nitrolingual spray as needed. 26. Sublingual nitroglycerin as needed. ALLERGIES: 1. AZITHROMYCIN. 2. EPHEDRINE. 3. ERYTHROMYCIN. 4. HYDROXYZINE. 5. NITROFURANTOIN. 6. THEOPHYLLINE. PAST MEDICAL HISTORY: 1. Longstanding asthma/COPD. 2. Aortic valvular disease status post St. Nish mechanical AVR 2001, on chronic Coumadin anticoagulation. 3. CAD status post RCA Taxus drug-eluting stent (details unknown). 4. Cardiomyopathy, uncertain etiology -- most recent LVEF per patient is 30%-35% (echocardiogram July 2017). 5. Cardiac catheterization 08/15/2017 at [facility] showed patent RCA stent, no significant disease otherwise. 6. Paroxysmal ventricular tachycardia in July 2017, current wearing a LifeVest. 7. Longstanding type 2 DM diagnosed 15 years ago. 8. Hypertension. 9. Dyslipidemia. 10. Has had 4 hospitalizations for CHF. 11. She denies any prior history of [place]. 12. Morbid obesity. 13. 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 14. Newly diagnosed paroxysmal atrial fibrillation on admission here. 15. Mildly elevated troponin I level, likely secondary to marked hypoxemia, AFib with RVR on admission in a patient with known CAD. 16. Diagnoses mentioned above. FAMILY HISTORY: None contributory. SOCIAL HISTORY: The patient is a lifelong nonsmoker. She is single, retired from work. PHYSICAL EXAMINATION: VITAL SIGNS: Temperature 36.9 degrees Celsius, pulse 78 and regular, respiratory rate is 18 and unlabored, blood pressure 115/68, and SpO2 is 99% on 5 L oxygen via nasal cannula. GENERAL: The patient is in no acute distress. HEENT: Head is atraumatic, normocephalic. EOMs intact. Sclerae are anicteric. Face is symmetric. No perioral cyanosis. Mucous membranes are moist. NECK: Without obvious JVD. Jugular venous pressure is slightly elevated sitting upright. CHEST AND LUNGS: Diminished breath sounds throughout, no obvious wheezes, rales, or rhonchi. CARDIOVASCULAR: S1 and S2 are regular with a grade 1/6 basal systolic murmur and a crisp aortic valve closure sound. No diastolic murmurs appreciated. No obvious gallops or rubs. PMI is nondisplaced. No lifts, heaves, or thrills. No abdominal aortic or renal bruits. ABDOMEN: Bowel sounds are present. There is a ventral hernia noted. No masses, organomegaly, or tenderness. EXTREMITIES: With +1 ankle and pretibial edema bilaterally. NEUROLOGIC: The patient is awake, alert and oriented. Pleasant and cooperative. Answers questions appropriately. Speech is clear. Normal movement in all 4 extremities. Gait pattern not assessed. EKG on admission shows probable atrial fibrillation with a ventricular response rate of 120 beats per minute with an LBBB pattern, and PVC versus aberrantly conducted complex. Current patient monitor reveals sinus rhythm with frequent PVCs and ventricular complex. She also has an intraventricular conduction delay/LBBB on telemetry monitoring. LABORATORY DATA: White blood cell count is 11.74. Hemoglobin of 11.1 g/dL, hematocrit 35.5% and platelet count 178,000. Sodium 140 mmol/L, potassium 3.5 mmol/L, BUN 20 mg/dL, and creatinine 0.86 mg/dL. Random glucose 178 mg/dL. Serum magnesium level is normal at 2.0 mg/dL. Total CKs are 176 and 137 units per liter with respective CKBs of 3.1 and 3.2 ng/mL. Troponin I elevated at 0.165 ng/mL. INR currently 2.6. Pro-BNP which was drawn at [facility] was elevated at 3018 pg/mL (reference range 0-125 pg/mL). Chest x-ray on admission shows cardiomegaly and radiographic evidence of CHF/volume overload. ASSESSMENT: 1. Cardiomyopathy with an acute exacerbation of chronic systolic congestive heart failure -- improved. 2. Coronary artery disease status post right coronary artery stent remotely. 3. Paroxysmal ventricular tachycardia July 2017, currently wearing LifeVest. 4. New onset paroxysmal atrial fibrillation -- has spontaneously converted back to a normal sinus rhythm. 5. Chronic obstructive pulmonary disease/asthma exacerbation. 6. Cardiac catheterization July 2017 showed patent right coronary artery stent, and no significant disease otherwise. 7. Cardiomyopathy, details unknown. The last reported left ventricular ejection fraction 35%. 8. Hypertension. 9. Dyslipidemia. 10. Elevated troponin I level, likely myocardial O2 supply demand mismatch related to hypoxemia and rapid atrial fibrillation in a patient with known coronary artery disease. PLAN: 1. Continue Lasix 40 mg IV daily until approaches euvolemic status, then resume oral Lasix. 2. Closely monitor daily I's and O's, body weights. 3. Maintain low-sodium, heart healthy diet. 4. Continue Toprol XL 25 mg daily. 5. Continue aspirin 81 mg daily. 6. Continue potassium chloride 40 mEq b.i.d. 7. Continue magnesium supplementation. 8. Continue Zetia 10 mg daily. 9. Continue Zocor 40 mg q.p.m. 10. Await most recent cardiac catheterization report, echocardiogram report, and Dr. Anthony's last office visit. 11. Answer INR if therapeutic, consider restarting Coumadin today or tomorrow and closely monitor daily INRs. 12. We will continue to follow along while hospitalized. [place]
[2017-10-04] MEDS ORDERED: WARFARIN SOD 10 MG TAB PO SCH (16:00)
[2017-10-04] MEDS ORDERED: FUROSEMIDE INJ 40 MG in SYRINGE 0 ML IV ONE (16:00)
[2017-10-04] MEDS ORDERED: WARFARIN SOD 3 MG TAB PO ONE (19:30)
--- NOTE | 2017-10-04 19:33 | Progress Note ---
Subjective Date of Service: Oct 04, 2017. Subjective Pt evaluation today including: conversation w/ patient, physical exam, chart review, lab review, review of studies (echo, liver u/s, etc), conversation w/ provider contracting consultant (cardiology) Pain: denies PO Intake: has been eating fine of late Voiding: no voiding problems Problem List Medical Problems: (1) CHF (congestive heart failure) Status: Acute (2) Respiratory failure Status: Acute Review of Systems Constitutional: No fever Respiratory: No cough, No dyspnea at rest Cardiac: + orthopnea, No chest pain Abdomen: No pain Objective Vital Signs Date Time Temp Pulse Resp B/P (MAP) Pulse Ox O2 Delivery O2 Flow Rate FiO2 10/04/17 16:00 Nasal Cannula 5.0 10/04/17 15:45 36.4 78 20 147/79 (101) 99 Nasal Cannula 7.0 10/04/17 12:00 Nasal Cannula 5.0 10/04/17 11:45 36.8 80 18 130/75 (93) 95 10/04/17 08:00 Nasal Cannula 5.0 10/04/17 07:48 36.9 78 18 115/68 (84) 99 10/04/17 07:10 73 98 10/04/17 07:10 73 23 98 BiPAP/CPAP 40 10/04/17 04:00 100 BiPAP 4.0 40 10/04/17 03:24 37.1 87 24 153/82 (105) 100 BiPAP 10/04/17 01:21 36.9 110 24 182/71 100 BiPAP 40 10/04/17 00:32 85 19 131/60 99 BiPAP 10/03/17 22:53 95 10/03/17 22:35 89 22 97 BiPAP/CPAP 40 10/03/17 22:32 98 97 10/03/17 22:14 37.2 111 26 128/91 98 Nasal Cannula 4.0 10/03/17 22:13 113 Physical Exam General Appearance: no apparent distress ENT: pharynx normal Neck: + JVD (mild) Respiratory/Chest: no respiratory distress, no accessory muscle use, + decreased breath sounds (bases and expiratory phase; no wheeze; no obvious rales ) Cardiovascular: regular rate, rhythm, no gallop, + systolic murmur (2-3/6 RUSB) , + pertinent finding (mechanical valve closure sound) Abdomen: normal bowel sounds, non tender, soft, + hepatomegaly (liver edge palpable) Extremities: + pedal edema (right leg is worse than left leg) Neurologic/Psychiatric: alert, oriented x 3 Skin: + pertinent finding (venous stasis changes b/l shins, worse on right) Comments: wearing a lifevest Laboratory Results Last 24 Hours Test 10/03/17 22:12 10/03/17 22:33 10/03/17 22:51 10/04/17 00:11 Creatine Kinase MB Ratio 2.3 Bedside Troponin I 0.100 ng/ml White Blood Count 11.74 K/uL Red Blood Count 3.90 M/uL Hemoglobin 11.1 g/dL Hematocrit 35.5 % Mean Corpuscular Volume 91.0 fL Mean Corpuscular Hemoglobin 28.5 pg Mean Corpuscular Hemoglobin Concent 31.3 g/dl Platelet Count 178 K/uL Mean Platelet Volume 12.4 fL Neutrophils (%) (Auto) 75.6 % Lymphocytes (%) (Auto) 17.1 % Monocytes (%) (Auto) 5.8 % Eosinophils (%) (Auto) 0.9 % Basophils (%) (Auto) 0.3 % Neutrophils # (Auto) 8.89 K/uL Lymphocytes # (Auto) 2.01 K/uL Monocytes # (Auto) 0.68 K/uL Eosinophils # (Auto) 0.10 K/uL Basophils # (Auto) 0.03 K/uL RDW Standard Deviation 52.8 fL RDW Coefficient of Variation 15.9 % Immature Granulocyte % (Auto) 0.3 % Immature Granulocyte # (Auto) 0.03 K/uL Prothrombin Time 28.6 SECONDS Prothromb Time International Ratio 2.8 Activated Partial Thromboplast Time 35.4 SECONDS Partial Thromboplastin Ratio 1.4 Sodium Level 141 mmol/L Potassium Level 3.2 mmol/L Chloride Level 102 mmol/L Carbon Dioxide Level 32 mmol/L Anion Gap 8.0 mmol/L Blood Urea Nitrogen 22 mg/dl Creatinine 0.88 mg/dl Est Creatinine Clear Calc Drug Dose 69.1 ml/min Estimated GFR () 78.8 Estimated GFR (Non- 68.0 BUN/Creatinine Ratio 24.5 Random Glucose 163 mg/dl Calcium Level 8.4 mg/dl Total Bilirubin 0.6 mg/dl Direct Bilirubin 0.3 mg/dl Aspartate Amino Transf (AST/SGOT) 224 U/L Alanine Aminotransferase (ALT/SGPT) 142 U/L Alkaline Phosphatase 117 U/L Total Creatine Kinase 137 U/L Creatine Kinase MB 3.2 ng/ml Total Protein 6.8 gm/dl Albumin 3.5 gm/dl Lipase 110 U/L Hepatitis B Surface Antigen NEG Hepatitis C Antibody NEG Test 10/04/17 06:26 10/04/17 06:35 10/04/17 08:06 10/04/17 09:43 Bedside Glucose 151 mg/dl Creatine Kinase MB Ratio 1.8 Total Creatine Kinase 176 U/L Creatine Kinase MB 3.1 ng/ml Troponin I 0.165 ng/ml Prothrombin Time 26.5 SECONDS Prothromb Time International Ratio 2.6 Sodium Level 140 mmol/L Potassium Level 3.5 mmol/L Chloride Level 101 mmol/L Carbon Dioxide Level 34 mmol/L Anion Gap 5.0 mmol/L Blood Urea Nitrogen 20 mg/dl Creatinine 0.86 mg/dl Est Creatinine Clear Calc Drug Dose 68.2 ml/min Estimated GFR () 81.0 Estimated GFR (Non- 69.9 BUN/Creatinine Ratio 23.6 Random Glucose 178 mg/dl Calcium Level 8.6 mg/dl Magnesium Level 2.0 mg/dl Test 10/04/17 11:14 10/04/17 16:17 Bedside Glucose 173 mg/dl 164 mg/dl Assessment and Plan 66yo female with: 1. acute hypoxic respiratory failure - suspect mainly due to acute/chronic systolic/diastolic CHF. Cannot exclude primary lung disease component (ie - asthma/COPD exacerbation) but less likely. 2. acute/chronic systolic/diastolic CHF - improved. Appreciate cardiology consultation. Echo results reviewed. Will give another dose of lasix this afternoon with net negative goal of 1-2 liters/day. Cont beta tanner. Unclear why she is not on BRANT or ARB (creatinine is normal, no allergy, etc). Will d/w cardiology. 3. abnormal LFTs - etiology? await hepatitis profile. Liver u/s without cirrhosis changes. Passive congestion from CHF?? Repeat LFTs in am. 4. supratherapeutic INR - possible causes include recent med changes, dietary changes, or liver dysfunction. In light of #3 I suspect possibly due to liver dysfunction. Normal dose is 6mg daily. Will cut dose to 3mg daily as her last 2 INRs, per her recollection, were quite high. 5. known CAD with positive troponin - no symptoms of ACS. Suspect myocardial demand ischemia as cause. Repeat troponin in AM. She is s/p right coronary artery stent in the past. 6. atrial fibrillation - now back in NSR. Cont coumadin. Cont BB for rate control. 7. h/o paroxysmal ventricular tachycardia in July 2017 - has LifeVest - plans for permanent ICD implantation? 8. hypokalemia - replaced, resolved. Repeat BMP/mag in am. 9. possible COPD/asthma exacerbation - no steroids at this time. Bronchodilators and inhaled steroids for now only. 10. HTN - controlled. 11. hyperlipidemia - statin is on hold due to abnormal LFTs. 12. T2DM - control is adequate at this time. 13. pulmonary HTN - noted; need to assess for home O2 needs at d/c. 14. moderate with h/o aortic valve replacement (mechanical) - INR goal 2.5- 3.5. Resume coumadin but at 3mg daily. request PT, OT consults leave on telemetry appreciate cardiology assistance Continued [facility] stay due to: ambulation difficulties, multiple IV medications needed Discharge planning: uncertain
[2017-10-04] MEDS: MONTELUKAST SOD 10 MG TAB PO SCH (20:05)
[2017-10-04] MEDS ORDERED: INSULIN GLARGINE SOLOSTAR 100 UNITS/ML 3 ML PEN SC SCH (21:00)
[2017-10-05] VITALS (9 sets, daily range): BP systolic 104–134; BP diastolic 58–82; PULSE 74–89; TEMP 36.5–37; O2SAT 94–100; BMI 43.9
[2017-10-05] MEDS: TRAMADOL HCL 50 MG TAB PO SCH ×3 (05:31→22:04)
[2017-10-05] MEDS: LORAZEPAM 0.5 MG TAB PO PRN (05:52)
[2017-10-05 05:53] LABS: BASO % 0.3 %; BASO ABS # 0.03 K/uL (0-0.2); EOS ABS # 0.42 K/uL (0-0.5); HEMATOCRIT 39.9 % (37-47); HEMOGLOBIN 12.3 g/dL (12.0-16.0); IG# 0.02 K/uL (0.00-0.02); LYMPH % 26.5 %; LYMPH ABS # 2.79 K/uL (1.2-3.4); MEAN CELL VOLUME 93.4 fL (80-100); MEAN CORPUSCULAR HEMOGLOBIN 28.8 pg (25-34); MEAN CORPUSCULAR HGB CONC 30.8 g/dl (32-36); MEAN PLATELET VOLUME 12.3 fL (7.4-10.4); MONO % 8.5 %; NEUT % 60.5 %; NEUT ABS # 6.37 K/uL (1.4-6.5); PLATELET COUNT 184 K/uL (130-400); RED CELL DISTRIBUTION WIDTH CV 15.9 % (11.5-14.5); RED CELL DISTRIBUTION WIDTH SD 53.8 fL (36.4-46.3); WHITE BLOOD COUNT 10.53 K/uL (4.8-10.8)
[2017-10-05 06:11] LABS: INR 1.6 (0.9-1.1)
[2017-10-05] MEDS: INSULIN ASPART 100 UNITS/ML 3 ML PEN SC SCH ×4 (06:29→20:54)
[2017-10-05 06:49] LABS: ALBUMIN 3.4 gm/dl (3.4-5.0); CALCIUM 8.8 mg/dl (8.5-10.1); CREATININE 0.91 mg/dl (0.60-1.20); POTASSIUM 3.7 mmol/L (3.5-5.1); TOTAL PROTEIN 6.8 gm/dl (6.4-8.2)
[2017-10-05] MEDS: BUDESONIDE 0.25 MG/2 ML VIAL (PULMICORT) INH SCH ×2 (07:05→19:27)
[2017-10-05] MEDS: ALBUTEROL 0.083% NEBU SOLN 3 ML VIAL INH SCH ×2 (07:27→19:27)
[2017-10-05] MEDS: FUROSEMIDE INJ 40 MG in SYRINGE 0 ML IV SCH ×2 (08:04→16:39)
[2017-10-05] MEDS: POTASSIUM CHLORIDE 20 MEQ TABCR PO SCH ×2 (08:04→20:40)
[2017-10-05] MEDS: CYANOCOBALAMIN 500 MCG TAB (VIT B-12) PO SCH (08:05)
[2017-10-05] MEDS: MAGNESIUM OXIDE 400 MG TAB PO SCH ×2 (08:05→20:41)
[2017-10-05] MEDS: CHOLECALCIFEROL 1000 INTER.UNIT TAB PO SCH (08:05)
[2017-10-05] MEDS: OXYBUTYNIN CHLORIDE 5 MG TABCR PO SCH (08:05)
[2017-10-05] MEDS: ASPIRIN 81 MG ECTAB PO SCH (08:05)
[2017-10-05] MEDS: MUPIROCIN 2% OINT 22 GM TUBE EXT SCH ×2 (08:06→20:55)
[2017-10-05] MEDS: HYDROCORTISONE 2.5% CR 30 GM TUBE EXT SCH ×2 (08:06→20:43)
[2017-10-05] MEDS: ASCORBIC ACID 500 MG TAB PO SCH (08:06)
[2017-10-05] MEDS: METOPROLOL SUCC 25MG EXT REL TAB PO SCH (08:06)
[2017-10-05] MEDS: EZETIMIBE 10MG TAB PO SCH (08:06)
--- NOTE | 2017-10-05 09:31 | CARDIOLOGY PROGRESS NOTE ---
DATE: 10/05/2017 HISTORY OF PRESENT ILLNESS: Mrs. Arellano is a pleasant 66-year-old white female with a history of asthma, insulin-requiring type 2 diabetes mellitus, hypertension, dyslipidemia, CAD status post proximal RCA stent in 2003, bicuspid aortic valve with aortic stenosis status post [facility] Nish #19 mechanical AVR in 2001 (on chronic Coumadin anticoagulation), paroxysmal V-tach (currently wearing a [employer]oll LifeVest), and cardiomyopathy with an LVEF of 30%-35%, who was admitted on 10/03/2017 with acute respiratory failure, COPD exacerbation and acute exacerbation of CHF. At this point, the patient is feeling significantly better. She was briefly in AFib with RVR on admission, but spontaneously converted back to a normal sinus rhythm. She denies any prior history of atrial fibrillation, but either way, she is on chronic anticoagulation. The patient states that her breathing status has improved greatly since admission. Her breathing is almost at baseline. She has not had any further ventilatory support in the form of BiPAP. She has had a negative fluid balance of approximately 4 liters. The patient denies any chest pain, heaviness, tightness, or pressure. Denies any neck, jaw, back, or arm pain. Denies any dyspnea at rest or PND. She denies any palpitations, tachypalpitations, syncope, or near syncope. She has not had any discharges from her defibrillator. Her INR is currently subtherapeutic, but she has resumed Coumadin. PHYSICAL EXAMINATION: VITAL SIGNS: Temperature is 36.8 degrees Celsius, pulse 89 and regular with occasional ectopy. Respiratory rate 16 and unlabored, blood pressure 104/58, and SpO2 is 97% on 4 liters of oxygen via nasal cannula. I's and O's -3.9 liters. Body weight was not measured today. GENERAL: The patient in no acute distress. HEENT: Head is atraumatic, normocephalic. EOMs intact. Sclerae are anicteric. Face is symmetric. No perioral cyanosis. Mucous membranes moist. NECK: Without obvious JVD. Jugular venous pressure is slightly elevated. CHEST AND LUNGS: With diminished breath sounds in bilateral bases, no obvious wheezes, rales or rhonchi. CARDIOVASCULAR: S1 and S2 are regular with occasional ectopy, grade 1/6 basal systolic murmur with crisp aortic valve closure sound. No diastolic murmurs appreciated. No lifts, heaves, or thrills. ABDOMINAL EXAM: Bowel sounds present. EXTREMITIES: With trace to +1 ankle and pretibial edema bilaterally. NEUROLOGIC: The patient is awake, alert and oriented. Pleasant and cooperative. Answers questions appropriately. Speech is clear. Normal movement in all 4 extremities. Gait not assessed. Telemetry monitoring reveals predominantly sinus rhythm with occasional PVCs. LABORATORY DATA: INR 1.6. Glucose 72 mg/dL. White blood cell count is 10.53. Hemoglobin 12.3 g/dL, hematocrit 39.9%. Platelet count 184,000. Echocardiogram on 10/04/2017 shows the followin. Mildly dilated LV with mild concentric LVH. 2. Kjbdsbkl-vt-pnzfdg global LV systolic dysfunction. 3. LVEF 30%-35%. Abnormal septal motion consistent with conduction abnormality. 4. Mildly dilated RV with normal RV systolic function. 5. Moderate . 6. Ocyz-om-kyhaalxg MR. 7. Grade 2 diastolic dysfunction. 8. Moderate pulmonary hypertension. ASSESSMENT: 1. Acute respiratory failure, multifactorial. 2. Asthmatic exacerbation. 3. Zlvgj-qd-wdrfdxi systolic congestive heart failure, improved. 4. Bicuspid aortic valve status post St. Nish mechanical aortic valve replacement in 2001. 5. Coronary artery disease, status post proximal right coronary artery stent in 2013. 6. Cardiac catheterization performed in July 2017 showed a patent right coronary artery stent, otherwise no obstructive or occlusive disease. 7. Cardiomyopathy, currently wearing a LifeVest. 8. Paroxysmal ventricular tachycardia. 9. Brief episode of paroxysmal atrial fibrillation on admission. 10. Hypoxia on admission. 11. Supratherapeutic INR on admission, now resolved. PLAN: 1. The patient is approaching a euvolemic state. We would recommend continuing IV Lasix today, and convert to oral Lasix tomorrow. 2. Continue Toprol-XL 25 mg daily. 3. Continue aspirin 81 mg daily. 4. Continue Zetia 10 mg a day. 5. Continue statin medication long term care social worker. 6. Continue potassium chloride supplementation. 7. Continue to monitor daily I's and O's, body weights. 8. I suspect that the patient will be well enough from a cardiac standpoint for discharge to home within the next 24 - 48 hours. She will be converted to her oral Lasix upon discharge. 9. Coumadin has been restarted. May discharge to home after her INR reaches 2.0 or greater. 10. We will continue to follow along while hospitalized. COLTON
[2017-10-05 10:42] LABS: HEPATITIS A IGM TC 51813E NON-REACTIVE (NON-REACTIVE); HEPATITIS B CORE IGM TC51854R NON-REACTIVE (NON-REACTIVE)
[2017-10-05] MEDS: ENOXAPARIN 100 MG/1ML SYR SQ SCH (14:24)
[2017-10-05] MEDS: WARFARIN SOD 10 MG TAB PO SCH (16:40)
[2017-10-05] MEDS: MONTELUKAST SOD 10 MG TAB PO SCH (20:41)
[2017-10-05] MEDS ORDERED: INSULIN GLARGINE SOLOSTAR 100 UNITS/ML 3 ML PEN SC SCH (21:00)
[2017-10-05] MEDS: SIMVASTATIN 40 MG TAB PO SCH (22:03)
--- NOTE | 2017-10-05 23:03 | Progress Note ---
Subjective Date of Service: Oct 05, 2017. Subjective Pt evaluation today including: conversation w/ patient, physical exam, chart review, lab review, review of inpatient medication list Pain: denied any during my visit PO Intake: normal Voiding: patel catheter in place (refusing to have it removed today) tele stable overnight she feels better - less dyspnea she confirms that she took a 2-week course of prednisone for bronchitis/asthma starting right after [place] and was on it until the day of her hospitalization here she cannot tell me what her baseline dry weight is Problem List Medical Problems: (1) CHF (congestive heart failure) Status: Acute (2) Respiratory failure Status: Acute Review of Systems Constitutional: No fever Cardiac: No chest pain, No orthopnea Abdomen: No pain Objective Vital Signs Date Time Temp Pulse Resp B/P (MAP) Pulse Ox O2 Delivery O2 Flow Rate FiO2 10/05/17 16:00 Nasal Cannula 3.0 10/05/17 15:57 36.5 74 20 134/82 (99) 99 3.0 10/05/17 12:03 36.6 88 18 119/75 (90) 95 10/05/17 12:00 Nasal Cannula 4.0 10/05/17 08:35 36.8 89 18 104/58 (73) 97 10/05/17 08:00 Nasal Cannula 4.0 10/05/17 07:09 84 20 99 Nasal Cannula 4.0 10/05/17 04:00 Nasal Cannula 4.0 10/05/17 03:37 36.9 74 16 128/73 (91) 100 10/05/17 00:56 36.7 77 18 116/75 (89) 100 4.0 10/05/17 00:00 Nasal Cannula 4.0 10/04/17 20:00 Nasal Cannula 5.0 Physical Exam General Appearance: no apparent distress ENT: pharynx normal Neck: + JVD (mild) Respiratory/Chest: no respiratory distress, no accessory muscle use, + crackles (bases) Cardiovascular: regular rate, rhythm, no gallop, no murmur Abdomen: normal bowel sounds, non tender, soft, no organomegaly Extremities: + pedal edema (right leg worse than left leg, pulses 2+ b/l ) Neurologic/Psychiatric: alert, oriented x 3 Laboratory Results Last 24 Hours Test 10/04/17 20:58 10/05/17 05:32 10/05/17 05:53 10/05/17 05:55 Bedside Glucose 151 mg/dl 53 mg/dl 48 mg/dl White Blood Count 10.53 K/uL Red Blood Count 4.27 M/uL Hemoglobin 12.3 g/dL Hematocrit 39.9 % Mean Corpuscular Volume 93.4 fL Mean Corpuscular Hemoglobin 28.8 pg Mean Corpuscular Hemoglobin Concent 30.8 g/dl Platelet Count 184 K/uL Mean Platelet Volume 12.3 fL Neutrophils (%) (Auto) 60.5 % Lymphocytes (%) (Auto) 26.5 % Monocytes (%) (Auto) 8.5 % Eosinophils (%) (Auto) 4.0 % Basophils (%) (Auto) 0.3 % Neutrophils # (Auto) 6.37 K/uL Lymphocytes # (Auto) 2.79 K/uL Monocytes # (Auto) 0.90 K/uL Eosinophils # (Auto) 0.42 K/uL Basophils # (Auto) 0.03 K/uL RDW Standard Deviation 53.8 fL RDW Coefficient of Variation 15.9 % Immature Granulocyte % (Auto) 0.2 % Immature Granulocyte # (Auto) 0.02 K/uL Prothrombin Time 17.1 SECONDS Prothromb Time International Ratio 1.6 Sodium Level 141 mmol/L Potassium Level 3.7 mmol/L Chloride Level 103 mmol/L Carbon Dioxide Level 37 mmol/L Anion Gap 1.0 mmol/L Blood Urea Nitrogen 23 mg/dl Creatinine 0.91 mg/dl Est Creatinine Clear Calc Drug Dose 64.5 ml/min Estimated GFR () 75.7 Estimated GFR (Non- 65.3 BUN/Creatinine Ratio 24.8 Random Glucose 35 mg/dl Calcium Level 8.8 mg/dl Magnesium Level 2.1 mg/dl Total Bilirubin 0.6 mg/dl Direct Bilirubin 0.2 mg/dl Aspartate Amino Transf (AST/SGOT) 54 U/L Alanine Aminotransferase (ALT/SGPT) 102 U/L Alkaline Phosphatase 93 U/L Troponin I 0.063 ng/ml Total Protein 6.8 gm/dl Albumin 3.4 gm/dl Thyroid Stimulating Hormone (TSH) 1.490 uIu/ml Test 10/05/17 06:14 10/05/17 06:16 10/05/17 06:35 10/05/17 06:36 Bedside Glucose 62 mg/dl 63 mg/dl 64 mg/dl 72 mg/dl Test 10/05/17 11:20 10/05/17 16:02 Bedside Glucose 134 mg/dl 115 mg/dl Assessment and Plan 66yo female with: 1. acute/chronic hypoxic respiratory failure - due to acute/chronic systolic/ diastolic CHF. Cannot exclude primary lung disease component (ie - asthma/COPD exacerbation) but less likely. Improving overall. She is now back to her home O2 amount of 2-3 L continuously. 2. acute/chronic systolic/diastolic CHF - improved. Appreciate cardiology consultation. Echo results reviewed. Cont lasix 40mg IV BID. BMP/mag in am. Cont beta tanner. Unclear why she is not on BRANT or ARB (creatinine is normal, no allergy, etc). Will d/w cardiology. 3. abnormal LFTs - improved. Liver u/s without cirrhosis changes. Suspect passive congestion from CHF. Repeat LFTs in 48 hours to ensure normalization. Statin resumed by cardiology. 4. supratherapeutic INR - resolved. possible causes include recent med changes, dietary changes, or liver dysfunction. In light of #3 I suspect possibly due to liver dysfunction. Normal dose is 9mg twice daily. Will cut dose to 10mg daily as her last 2 INRs , per her recollection, were quite high (8 or higher). 5. known CAD with positive troponin - no symptoms of ACS. Suspect myocardial demand ischemia as cause. Repeat troponin acceptable today. She is s/p right coronary artery stent in the past. 6. atrial fibrillation - now back in NSR. Cont coumadin as above. Cont BB for rate control. 7. h/o paroxysmal ventricular tachycardia in July 2017 - has LifeVest - plans for permanent ICD implantation? 8. hypokalemia - resolved. 9. possible COPD/asthma exacerbation - no steroids at this time. Bronchodilators and inhaled steroids for now only. 10. HTN - controlled. 11. hyperlipidemia - statin resumed. 12. T2DM - control is adequate at this time. 13. pulmonary HTN - noted; need to assess home O2 needs to ensure she is on correct amount. 14. moderate with h/o aortic valve replacement (mechanical) - INR goal 2.5- 3.5. Resumed coumadin. Since she will likely be subtherapeutic for a few days due to recent vitamin K intake will bridge w/ lovenox 1mg/kg BID. progressing nicely Continued [facility] stay due to: ambulation difficulties, multiple IV medications needed Discharge planning: uncertain
[2017-10-06] VITALS (8 sets, daily range): BP systolic 109–125; BP diastolic 55–76; PULSE 70–85; TEMP 36.2–37.2; O2SAT 97–100; Ht 152.4 cm; Wt 96.2 kg
[2017-10-06] MEDS: ENOXAPARIN 100 MG/1ML SYR SQ SCH ×2 (01:36→14:08)
[2017-10-06] MEDS: TRAMADOL HCL 50 MG TAB PO SCH ×3 (05:52→20:53)
[2017-10-06] MEDS: INSULIN ASPART 100 UNITS/ML 3 ML PEN SC SCH ×2 (07:00→17:22)
[2017-10-06 07:18] LABS: INR 1.7 (0.9-1.1)
[2017-10-06] MEDS: ALBUTEROL 0.083% NEBU SOLN 3 ML VIAL INH SCH ×2 (07:18→19:43)
[2017-10-06] MEDS: BUDESONIDE 0.25 MG/2 ML VIAL (PULMICORT) INH SCH ×2 (07:18→19:45)
[2017-10-06 07:46] LABS: CALCIUM 8.9 mg/dl (8.5-10.1); CREATININE 0.72 mg/dl (0.60-1.20); POTASSIUM 3.7 mmol/L (3.5-5.1)
[2017-10-06] MEDS: HYDROCORTISONE 2.5% CR 30 GM TUBE EXT SCH ×2 (08:36→20:55)
[2017-10-06] MEDS: MUPIROCIN 2% OINT 22 GM TUBE EXT SCH ×2 (08:36→20:55)
[2017-10-06] MEDS: FUROSEMIDE INJ 40 MG in SYRINGE 0 ML IV SCH ×2 (08:37→17:15)
[2017-10-06] MEDS: ASCORBIC ACID 500 MG TAB PO SCH (08:37)
[2017-10-06] MEDS: OXYBUTYNIN CHLORIDE 5 MG TABCR PO SCH (08:38)
[2017-10-06] MEDS: CHOLECALCIFEROL 1000 INTER.UNIT TAB PO SCH (08:38)
[2017-10-06] MEDS: EZETIMIBE 10MG TAB PO SCH (08:38)
[2017-10-06] MEDS: CYANOCOBALAMIN 500 MCG TAB (VIT B-12) PO SCH (08:38)
[2017-10-06] MEDS: ASPIRIN 81 MG ECTAB PO SCH (08:38)
[2017-10-06] MEDS: POTASSIUM CHLORIDE 20 MEQ TABCR PO SCH ×2 (08:39→20:54)
[2017-10-06] MEDS: MAGNESIUM OXIDE 400 MG TAB PO SCH ×2 (08:39→20:54)
[2017-10-06] MEDS: METOPROLOL SUCC 25MG EXT REL TAB PO SCH (08:39)
[2017-10-06] MEDS: WARFARIN SOD 10 MG TAB PO SCH (17:14)
--- NOTE | 2017-10-06 18:09 | Progress Note ---
Subjective Date of Service: Oct 06, 2017. Subjective Pt evaluation today including: conversation w/ patient, physical exam, chart review, lab review, review of inpatient medication list Pain: denies PO Intake: normal Voiding: patel catheter in place tele normal overnight; no PAF feeling better denies any pulmonary symptoms today no cough or wheeze did have hypoglycemia this am Problem List Medical Problems: (1) CHF (congestive heart failure) Status: Acute (2) Respiratory failure Status: Acute Review of Systems Constitutional: No fever Respiratory: No cough, No dyspnea at rest Cardiac: + edema, No chest pain, No orthopnea, No PND Abdomen: No pain Objective Vital Signs Date Time Temp Pulse Resp B/P (MAP) Pulse Ox O2 Delivery O2 Flow Rate FiO2 10/06/17 16:00 Nasal Cannula 3.0 10/06/17 15:40 36.7 70 20 116/73 (87) 99 Nasal Cannula 3.0 Humidified Oxygen 10/06/17 12:00 Nasal Cannula 3.0 10/06/17 10:49 36.7 82 20 112/55 (74) 98 Nasal Cannula 3.0 10/06/17 08:00 Nasal Cannula 3.0 10/06/17 07:27 36.2 82 20 109/58 (75) 100 Nasal Cannula 3.0 10/06/17 07:18 78 16 98 Nasal Cannula 3.0 10/06/17 04:00 Nasal Cannula 3.0 10/06/17 04:00 37.2 84 19 124/68 (86) 98 Nasal Cannula 3.0 10/05/17 23:59 Nasal Cannula 3.0 10/05/17 23:00 37.0 78 18 129/77 (94) 100 Room Air 10/05/17 20:07 36.8 75 20 120/80 (93) 99 Nasal Cannula 3.0 10/05/17 20:00 Nasal Cannula 3.0 10/05/17 19:27 85 20 94 Nasal Cannula 3.0 Physical Exam General Appearance: no apparent distress, + obese ENT: pharynx normal (MM slightly dry) Neck: no JVD Respiratory/Chest: no respiratory distress, no accessory muscle use, + crackles (both bases but improved) Cardiovascular: regular rate, rhythm, no gallop, + systolic murmur (LSB) Abdomen: normal bowel sounds, non tender, soft, no organomegaly, + hernia ( umbilical - reducible ) Extremities: + pedal edema (R>L -- improved) Neurologic/Psychiatric: alert, oriented x 3 Laboratory Results Last 24 Hours Test 10/05/17 20:11 10/06/17 06:29 10/06/17 07:08 10/06/17 07:31 Bedside Glucose 201 mg/dl 55 mg/dl 77 mg/dl Prothrombin Time 17.4 SECONDS Prothromb Time International Ratio 1.7 Sodium Level 139 mmol/L Potassium Level 3.7 mmol/L Chloride Level 102 mmol/L Carbon Dioxide Level 33 mmol/L Anion Gap 4.0 mmol/L Blood Urea Nitrogen 26 mg/dl Creatinine 0.72 mg/dl Est Creatinine Clear Calc Drug Dose 80.7 ml/min Estimated GFR () 100.4 Estimated GFR (Non- 86.7 BUN/Creatinine Ratio 36.6 Random Glucose 47 mg/dl Calcium Level 8.9 mg/dl Magnesium Level 2.3 mg/dl Test 10/06/17 10:48 10/06/17 16:17 Bedside Glucose 136 mg/dl 253 mg/dl Assessment and Plan 66yo female with: 1. acute/chronic hypoxic respiratory failure - due to acute/chronic systolic/ diastolic CHF. Acute component nearly resolved. She is back to home O2 amount. 2. acute/chronic systolic/diastolic CHF - improved. Appreciate cardiology consultation. Echo results reviewed. Cont lasix 40mg IV BID but suspect we are approaching euvolemia; thus, hold lasix after tonight's dose then reassess clinically and with BMP in am. Cont beta tanner. Unclear why she is not on BRANT or ARB (creatinine is normal, no allergy, etc). 3. abnormal LFTs - improved. Liver u/s without cirrhosis changes. Suspect passive congestion from CHF. Repeat LFTs in am. 4. supratherapeutic INR - resolved. possible causes include recent med changes, dietary changes, or liver dysfunction. In light of #3 I suspect possibly due to liver dysfunction. Normal dose is 9mg twice daily. dose reduced to 10mg daily as her last 2 INRs, per her recollection, were quite high (8 or higher). INR in am. 5. known CAD with positive troponin - no symptoms of ACS. Suspect myocardial demand ischemia as cause. 6. atrial fibrillation - now back in NSR. Cont coumadin as above. Cont BB for rate control. 7. h/o paroxysmal ventricular tachycardia in July 2017 - has LifeVest - plans for permanent ICD implantation? 8. hypokalemia - resolved. 9. possible COPD/asthma exacerbation - no steroids at this time. Bronchodilators and inhaled steroids for now only. Pt w/o wheeze/cough today. 10. HTN - controlled. 11. hyperlipidemia - statin resumed. 12. T2DM - control is adequate at this time but did have hypoglycemia. Lower lantus to 30 units HS. d/c HS novolog (ie just use novolog w/ meals). 13. pulmonary HTN - noted; need to assess home O2 needs to ensure she is on correct amount. 14. moderate with h/o aortic valve replacement (mechanical) - INR goal 2.5- 3.5. Resumed coumadin. Since she will likely be subtherapeutic for a few days due to recent vitamin K intake will bridge w/ lovenox 1mg/kg BID. progressing nicely suspect home next 48 hours will need HH services; social work aware Continued [facility] stay due to: ambulation difficulties, multiple IV medications needed Discharge planning: home with home health
[2017-10-06] MEDS: INSULIN GLARGINE SOLOSTAR 100 UNITS/ML 3 ML PEN SC SCH (20:56)
[2017-10-06] MEDS: SIMVASTATIN 40 MG TAB PO SCH (22:15)
[2017-10-06] MEDS: MONTELUKAST SOD 10 MG TAB PO SCH (22:15)
[2017-10-07] VITALS (8 sets, daily range): BP systolic 113–144; BP diastolic 59–72; PULSE 71–79; TEMP 36.4–37.1; O2SAT 91–99
[2017-10-07] MEDS: ENOXAPARIN 100 MG/1ML SYR SQ SCH ×2 (01:33→14:19)
[2017-10-07] MEDS: TRAMADOL HCL 50 MG TAB PO SCH ×3 (05:22→21:38)
[2017-10-07] MEDS: ALBUTEROL 0.083% NEBU SOLN 3 ML VIAL INH SCH ×2 (07:13→20:03)
[2017-10-07] MEDS: BUDESONIDE 0.25 MG/2 ML VIAL (PULMICORT) INH SCH ×2 (07:14→20:03)
[2017-10-07 07:32] LABS: CALCIUM 8.5 mg/dl (8.5-10.1); CREATININE 0.76 mg/dl (0.60-1.20)
[2017-10-07] MEDS: HYDROCORTISONE 2.5% CR 30 GM TUBE EXT SCH ×2 (08:24→21:31)
[2017-10-07] MEDS: MUPIROCIN 2% OINT 22 GM TUBE EXT SCH ×2 (08:24→21:31)
[2017-10-07] MEDS: INSULIN ASPART 100 UNITS/ML 3 ML PEN SC SCH ×3 (08:24→19:04)
[2017-10-07] MEDS: MAGNESIUM OXIDE 400 MG TAB PO SCH ×2 (08:25→21:33)
[2017-10-07] MEDS: POTASSIUM CHLORIDE 20 MEQ TABCR PO SCH ×2 (08:25→21:34)
[2017-10-07] MEDS: ASCORBIC ACID 500 MG TAB PO SCH (08:25)
[2017-10-07] MEDS: METOPROLOL SUCC 25MG EXT REL TAB PO SCH (09:31)
[2017-10-07] MEDS: ASPIRIN 81 MG ECTAB PO SCH (09:31)
[2017-10-07] MEDS: EZETIMIBE 10MG TAB PO SCH (09:31)
[2017-10-07] MEDS: CYANOCOBALAMIN 500 MCG TAB (VIT B-12) PO SCH (09:31)
[2017-10-07] MEDS: OXYBUTYNIN CHLORIDE 5 MG TABCR PO SCH (09:32)
[2017-10-07] MEDS: CHOLECALCIFEROL 1000 INTER.UNIT TAB PO SCH (09:32)
[2017-10-07] MEDS: LORAZEPAM 0.5 MG TAB PO PRN (09:35)
[2017-10-07] MEDS ORDERED: NURSING VERBAL MED ORDER ONE ×2 (10:30→11:15)
[2017-10-07] MEDS ORDERED: EUCERIN CR 120 GM JAR EXT PRN (10:30)
[2017-10-07] MEDS ORDERED: FUROSEMIDE INJ 40 MG in SYRINGE 0 ML IV ONE (11:30)
[2017-10-07 12:06] LABS: INR 2.2 (0.9-1.1)
[2017-10-07] MEDS: FUROSEMIDE INJ 40 MG in SYRINGE 0 ML IV SCH (17:20)
[2017-10-07] MEDS: WARFARIN SOD 10 MG TAB PO SCH (17:20)
--- NOTE | 2017-10-07 19:05 | Progress Note ---
Subjective Date of Service: Oct 07, 2017. Subjective Pt evaluation today including: conversation w/ patient, physical exam, chart review, lab review Pain: none PO Intake: normal Voiding: patel catheter in place tele stable overnight feels good no orthopnea no dyspnea at rest minimal wheeze intermittently and minimal cough has her electric power scooter at bedside Problem List Medical Problems: (1) CHF (congestive heart failure) Status: Acute (2) Respiratory failure Status: Acute Review of Systems Constitutional: No fever Respiratory: + cough, + sputum, + wheezing, No shortness of breath, No dyspnea at rest, No hemoptysis Cardiac: No chest pain, No orthopnea Abdomen: No pain, No nausea, No vomiting Objective Vital Signs Date Time Temp Pulse Resp B/P (MAP) Pulse Ox O2 Delivery O2 Flow Rate FiO2 10/07/17 16:00 36.9 71 18 113/59 (77) 99 Nasal Cannula 3.0 10/07/17 14:43 36.4 74 19 94 3.0 10/07/17 12:06 36.4 74 19 122/72 (89) 94 Nasal Cannula 3.0 10/07/17 12:00 Nasal Cannula 3.0 10/07/17 08:00 Nasal Cannula 3.0 10/07/17 07:33 36.5 76 19 120/68 (85) 95 Nasal Cannula 3.0 10/07/17 07:13 72 16 91 Nasal Cannula 3.0 10/07/17 04:00 Nasal Cannula 3.0 10/07/17 03:03 37.1 72 22 113/68 (83) 98 Humidified Air 3.0 10/06/17 23:59 Nasal Cannula 3.0 10/06/17 23:05 37.1 85 24 125/76 (92) 97 Humidified Air 3.0 10/06/17 20:00 Nasal Cannula 3.0 10/06/17 19:45 76 16 98 Nasal Cannula 3.0 10/06/17 19:40 36.5 75 20 117/74 (88) 99 Nasal Cannula 2.5 Physical Exam General Appearance: no apparent distress, + obese, + pertinent finding ( wearing lifevest) ENT: pharynx normal Neck: no JVD Respiratory/Chest: no respiratory distress, no accessory muscle use, + crackles (bases - but improving), + wheezing (scant, end-exp b/l ) Cardiovascular: regular rate, rhythm, no gallop, + systolic murmur (2/6 RUSB), + pertinent finding (mechanical valve closure sound) Abdomen: normal bowel sounds, non tender, soft, no organomegaly, + hernia ( umbilical, reducible ) Extremities: + pedal edema (trace on right, none on left; right leg mildly larger than left leg) Neurologic/Psychiatric: alert, normal mood/affect, oriented x 3 Skin: + pertinent finding (stasis changes b/l shins of legs ) Laboratory Results Last 24 Hours Test 10/06/17 20:09 10/07/17 01:31 10/07/17 06:29 10/07/17 06:45 Bedside Glucose 131 mg/dl 190 mg/dl 138 mg/dl Sodium Level 139 mmol/L Potassium Level 4.0 mmol/L Chloride Level 103 mmol/L Carbon Dioxide Level 35 mmol/L Anion Gap 1.0 mmol/L Blood Urea Nitrogen 22 mg/dl Creatinine 0.76 mg/dl Est Creatinine Clear Calc Drug Dose 75.3 ml/min Estimated GFR () 94.1 Estimated GFR (Non- 81.2 BUN/Creatinine Ratio 28.9 Random Glucose 115 mg/dl Calcium Level 8.5 mg/dl Aspartate Amino Transf (AST/SGOT) 19 U/L Alanine Aminotransferase (ALT/SGPT) 49 U/L Test 10/07/17 10:55 10/07/17 11:42 10/07/17 17:01 Bedside Glucose 178 mg/dl 166 mg/dl Prothrombin Time 23.1 SECONDS Prothromb Time International Ratio 2.2 Assessment and Plan 66yo female with: 1. acute/chronic hypoxic respiratory failure - due to acute/chronic systolic/ diastolic CHF. Acute component resolved. Back to home O2 amount of 3 L. 2. acute/chronic systolic/diastolic CHF - markedly improved. Appreciate cardiology consultation. Echo results reviewed. 10kg weight loss from admission. BUN & Cr continue to remain stable. Cont lasix 40mg IV BID. Cont beta tanner. Unclear why she is not on BRANT or ARB (creatinine is normal, no allergy, etc). Suspect we are near euvolemia, but patient does not know baseline weight, and she continues with mild basilar rales. Reassess clinically in AM along with BMP. 3. abnormal LFTs - resolved. Was likely due to passive congestion from CHF. Liver u/s was normal. Statin has been resumed. 4. supratherapeutic INR - resolved. possible causes include recent med changes, dietary changes, or liver dysfunction. In light of #3 I suspect possibly due to liver dysfunction. Normal dose is 9mg twice daily. dose reduced to 10mg daily as her last 2 INRs, per her recollection, were quite high (8 or higher). INR in am. Due to the fact she has a mechanical aortic valve will bridge w/ lovenox 1mg/kg until INR is >2.5. 5. known CAD with positive troponin - no symptoms of ACS. Suspect myocardial demand ischemia as cause. 6. atrial fibrillation - now back in NSR. Cont coumadin as above. Cont BB for rate control. 7. h/o paroxysmal ventricular tachycardia in July 2017 - has LifeVest - plans for permanent ICD implantation? 8. hypokalemia - resolved. 9. COPD (vs asthma) - had recent 2-week steroid taper. No exacerbation at this time. Cont inhalers. Cont [place] O2. 10. HTN - controlled. 11. hyperlipidemia - statin resumed. 12. T2DM - control is adequate with lantus & novolog. No further hypoglycemia. 13. pulmonary HTN - noted. Continue NC O2. 14. moderate with h/o aortic valve replacement (mechanical) - INR goal 2.5- 3.5. Resumed coumadin. Cont lovenox bridge until INR is >2.5. progressing nicely home Monday if euvolemic?? will need HH services; social work aware she does not ambulate at home; uses power scooter pt not interested in rehab ok to d/c tele move to med/surg Continued [facility] stay due to: ambulation difficulties, multiple IV medications needed Discharge planning: home with home health
[2017-10-07] MEDS: MONTELUKAST SOD 10 MG TAB PO SCH (21:33)
[2017-10-07] MEDS: SIMVASTATIN 40 MG TAB PO SCH (21:34)
[2017-10-07] MEDS: INSULIN GLARGINE SOLOSTAR 100 UNITS/ML 3 ML PEN SC SCH (21:38)
[2017-10-08] MEDS: ENOXAPARIN 100 MG/1ML SYR SQ SCH ×2 (01:43→14:19)
[2017-10-08] MEDS: TRAMADOL HCL 50 MG TAB PO SCH ×3 (05:45→21:39)
[2017-10-08 07:30] VITALS: BP 110/70; PULSE 68; TEMP 37; O2SAT 99
[2017-10-08] MEDS: ALBUTEROL 0.083% NEBU SOLN 3 ML VIAL INH SCH ×2 (07:51→19:55)
[2017-10-08] MEDS: BUDESONIDE 0.25 MG/2 ML VIAL (PULMICORT) INH SCH ×2 (07:51→19:55)
[2017-10-08 07:53] VITALS: PULSE 76; O2SAT 99
[2017-10-08 08:09] LABS: INR 2.8 (0.9-1.1)
[2017-10-08 08:26] LABS: CALCIUM 8.9 mg/dl (8.5-10.1); CREATININE 0.61 mg/dl (0.60-1.20); POTASSIUM 3.9 mmol/L (3.5-5.1)
[2017-10-08] MEDS: POTASSIUM CHLORIDE 20 MEQ TABCR PO SCH ×2 (09:18→21:40)
[2017-10-08] MEDS: ASCORBIC ACID 500 MG TAB PO SCH (09:18)
[2017-10-08] MEDS: FUROSEMIDE INJ 40 MG in SYRINGE 0 ML IV SCH ×2 (09:18→17:19)
[2017-10-08] MEDS: ASPIRIN 81 MG ECTAB PO SCH (09:19)
[2017-10-08] MEDS: MAGNESIUM OXIDE 400 MG TAB PO SCH ×2 (09:19→21:40)
[2017-10-08] MEDS: CYANOCOBALAMIN 500 MCG TAB (VIT B-12) PO SCH (09:20)
[2017-10-08] MEDS: OXYBUTYNIN CHLORIDE 5 MG TABCR PO SCH (09:20)
[2017-10-08] MEDS: METOPROLOL SUCC 25MG EXT REL TAB PO SCH (09:20)
[2017-10-08] MEDS: EZETIMIBE 10MG TAB PO SCH (09:20)
[2017-10-08] MEDS: CHOLECALCIFEROL 1000 INTER.UNIT TAB PO SCH (09:20)
[2017-10-08] MEDS: MUPIROCIN 2% OINT 22 GM TUBE EXT SCH ×2 (09:21→21:38)
[2017-10-08] MEDS: HYDROCORTISONE 2.5% CR 30 GM TUBE EXT SCH ×2 (09:22→21:38)
[2017-10-08] MEDS: INSULIN ASPART 100 UNITS/ML 3 ML PEN SC SCH ×3 (09:23→20:06)
--- NOTE | 2017-10-08 09:48 | Progress Note ---
Subjective Date of Service: Oct 08, 2017. Subjective This pt is in good spirits, she adamantly refused for staff to remove her patel , otherwise she feels improved and has no other new complaints, less cough and KLEIN Problem List Medical Problems: (1) CHF (congestive heart failure) Status: Acute (2) Respiratory failure Status: Acute Review of Systems Constitutional: + weakness, + fatigue (typically rides electric scooter and only transfers short distances otherwise), No fever, No chills Respiratory: No cough, No sputum, No shortness of breath Cardiac: No chest pain, No PND Abdomen: No pain, No vomiting Musculoskeletal: + joint pain, + muscle pain Neurologic: + weakness, + balance problems, No memory loss, No paralysis Objective Vital Signs Date Time Temp Pulse Resp B/P (MAP) Pulse Ox O2 Delivery O2 Flow Rate FiO2 10/08/17 07:53 76 16 99 Nasal Cannula 3.0 10/08/17 07:40 Room Air 10/08/17 07:30 37.0 68 17 110/70 (83) 99 Humidified Oxygen 3.0 10/07/17 23:35 Nasal Cannula 3.0 10/07/17 23:20 36.8 79 22 144/72 (96) 98 Nasal Cannula 3.0 10/07/17 20:03 71 16 97 Nasal Cannula 3.0 10/07/17 16:00 36.9 71 18 113/59 (77) 99 Nasal Cannula 3.0 10/07/17 15:45 Nasal Cannula 3.0 10/07/17 14:43 36.4 74 19 94 3.0 10/07/17 12:06 36.4 74 19 122/72 (89) 94 Nasal Cannula 3.0 10/07/17 12:00 Nasal Cannula 3.0 Physical Exam General Appearance: + moderate distress, + obese Eyes: normal inspection, sclerae normal Respiratory/Chest: chest non-tender, lungs clear, + decreased breath sounds Cardiovascular: regular rate, rhythm, + systolic murmur Abdomen: normal bowel sounds, non tender, soft Extremities: + pedal edema (somne chronic venous stasis changes), + swelling Neurologic/Psychiatric: alert, oriented x 3 Laboratory Results Last 24 Hours Test 10/07/17 10:55 10/07/17 11:42 10/07/17 17:01 10/07/17 20:38 Bedside Glucose 178 mg/dl 166 mg/dl 184 mg/dl Prothrombin Time 23.1 SECONDS Prothromb Time International Ratio 2.2 Test 10/08/17 07:19 10/08/17 08:01 Prothrombin Time 28.9 SECONDS Prothromb Time International Ratio 2.8 Sodium Level 139 mmol/L Potassium Level 3.9 mmol/L Chloride Level 101 mmol/L Carbon Dioxide Level 35 mmol/L Anion Gap 3.0 mmol/L Blood Urea Nitrogen 21 mg/dl Creatinine 0.61 mg/dl Est Creatinine Clear Calc Drug Dose 93.8 ml/min Estimated GFR () 108.7 Estimated GFR (Non- 93.8 BUN/Creatinine Ratio 34.3 Random Glucose 109 mg/dl Calcium Level 8.9 mg/dl Magnesium Level 2.1 mg/dl Bedside Glucose 117 mg/dl Assessment and Plan 66yo female with acute shortness of breath felt secondary to combined acute on chronic heart failure acute/chronic hypoxic respiratory failure - due to acute/chronic systolic/ diastolic CHF. Acute component resolved. Back to home O2 amount of 3 L. acute/chronic systolic/diastolic CHF - improved. Appreciate cardiology consultation. Echo results reviewed. 10kg weight loss from admission. lasix 40mg IV BID. beta tanner. positive troponin - no symptoms of ACS. Suspect myocardial demand ischemia atrial fibrillation - now back in NSR. beta blopcker for rate control. Anticoagulation h/o paroxysmal ventricular tachycardia in July 2017 - has LifeVest abnormal LFTs - resolved. secondary to passive congestion from CHF. Liver u/s was normal. Statin has been resumed. supratherapeutic INR - resolved. . due to the fact she has a mechanical aortic valve bridged w/ lovenox 1mg/kg until INR is >2.5. hypokalemia - resolved. COPD (vs asthma) - had recent 2-week steroid taper. No exacerbation continue inhalers/ NC O2. T2DM - control is adequate with lantus & novolog. monitor for toxic affects of hypoglycemia will need HH services; social work aware pt not interested in rehab Continued [facility] stay due to: ambulation difficulties, multiple IV medications needed Discharge planning: home with home health
[2017-10-08] MEDS ORDERED: SOD PHOSPHATE/SOD BIPHOSPHATE ENEMA 132 ML BTL PR ONE (15:15)
[2017-10-08 15:26] VITALS: BP 115/70; PULSE 66; TEMP 37; O2SAT 98
[2017-10-08] MEDS: WARFARIN SOD 10 MG TAB PO SCH (17:19)
[2017-10-08] MEDS ORDERED: NURSING VERBAL MED ORDER ONE (19:30)
[2017-10-08] MEDS ORDERED: POLYETHYLENE (MIRALAX) 17 GM PACK PO ONE (19:45)
[2017-10-08 19:55] VITALS: PULSE 68; O2SAT 98
[2017-10-08] MEDS: MONTELUKAST SOD 10 MG TAB PO SCH (21:40)
[2017-10-08] MEDS: SIMVASTATIN 40 MG TAB PO SCH (21:40)
[2017-10-08] MEDS: INSULIN GLARGINE SOLOSTAR 100 UNITS/ML 3 ML PEN SC SCH (21:52)
[2017-10-08 23:05] VITALS: BP 117/69; PULSE 73; TEMP 36.8; O2SAT 98
[2017-10-08] MEDS: LORAZEPAM 0.5 MG TAB PO PRN (23:26)
[2017-10-09] MEDS: TRAMADOL HCL 50 MG TAB PO SCH ×2 (05:44→13:38)
[2017-10-09 07:00] VITALS: BP 121/76; PULSE 70; TEMP 36.8; O2SAT 99
[2017-10-09 07:17] LABS: HEMATOCRIT 38.8 % (37-47); HEMOGLOBIN 11.9 g/dL (12.0-16.0); MEAN CELL VOLUME 91.7 fL (80-100); MEAN CORPUSCULAR HEMOGLOBIN 28.1 pg (25-34); MEAN CORPUSCULAR HGB CONC 30.7 g/dl (32-36); MEAN PLATELET VOLUME 12.6 fL (7.4-10.4); PLATELET COUNT 149 K/uL (130-400); RED CELL DISTRIBUTION WIDTH CV 15.3 % (11.5-14.5); RED CELL DISTRIBUTION WIDTH SD 51.4 fL (36.4-46.3); WHITE BLOOD COUNT 4.92 K/uL (4.8-10.8)
[2017-10-09 07:34] LABS: INR 3.1 (0.9-1.1)
[2017-10-09 07:43] VITALS: PULSE 70; O2SAT 98
[2017-10-09] MEDS: ALBUTEROL 0.083% NEBU SOLN 3 ML VIAL INH SCH (07:43)
[2017-10-09] MEDS: BUDESONIDE 0.25 MG/2 ML VIAL (PULMICORT) INH SCH (07:43)
[2017-10-09 07:52] LABS: CREATININE 0.6 mg/dl (0.60-1.20)
[2017-10-09] MEDS: FUROSEMIDE INJ 40 MG in SYRINGE 0 ML IV SCH (09:00)
[2017-10-09] MEDS ORDERED: CMD3 PO (09:04)
[2017-10-09] MEDS ORDERED: MCRK20 PO (09:04)
[2017-10-09] MEDS ORDERED: FRS/40 PO (09:04)
--- NOTE | 2017-10-09 09:05 | Discharge Instructions ---
Discharge Instructions Date of Service Oct 09, 2017. Admission Reason for Admission: Acute Resp Failure With Hypoxia,Acute Systolic Chf Discharge Discharge Diagnosis / Problem: fluid retention, from heart failure, resolving Discharge Goals Goal(s): Diagnostic testing, Therapeutic intervention Activity Recommendations Activity Limitations: as noted below Lifting Limitations: gradually increase as tolerated . Instructions / Follow-Up Instructions / Follow-Up Call your Primary Care doctor if any of the following symptoms or problems start or get worse: * Shortness of breath or difficulty breathing * Wake up at night short of breath * Chest pain * Cough * Swelling of your hands, feet, or legs * More fatigued or tired with your normal activity * Palpitations - sudden fast heart beats WEIGHT * Weigh yourself every morning after using the bathroom. * Use the same scale. * Wear the same amount of clothing. * Write your weight down on a chart. * Call your Primary Care doctor if you gain more than 2-3 pounds in 1-2 days. MEDICATIONS * Use this discharge instruction sheet for medication instructions. * Take your medications at the time your doctor ordered. * Do not skip a dose of your medicines. * If you miss a dose of medicine, take it as soon as possible, but DO NOT DOUBLE A DOSE. * Read your medicine information when you get home. * Know all of the side effects of your medicine. If in doubt, ask your pharmacist * Call your Primary Care doctor's office if you have any side effects. * Be sure all of your doctors know what medicine and herbs you take (including cold, flu, and herbal medicine). Take the following with you to your follow-up doctor appointments: * Weight Chart * Medication List * List of questions Do not drink excessive alcohol, beer or wine. Current Hospital Diet Patient's current hospital diet: AHA Diet (Heart Healthy), Diabetes Type 2 Diet Discharge Diet Recommended Diet: Low Sodium Diet (2gm Na), Diabetes Type 2 Diet Fluid Restriction: 1800 ml (7 cups) Pending Studies Studies pending at discharge: no Medical Emergencies . Who to Call and When: Call 911 or go to the Emergency Room if: * If at any time you feel your situation is an emergency * You have tightness or pain in your chest that does not go away with rest or Nitroglycerin * You are very short of breath even with rest . Non-Emergent Contact Non-Emergency issues call your: Primary Care Provider, Clinical Laboratory Scientist Call Non-Emergent contact if: temperature is above 101, your pain is unusual for you . . "Provider Documentation" section prepared by Juventino Phipps. . VTE Core Measure Inpt VTE Proph given/why not?: Warfarin (Coumadin)
[2017-10-09] MEDS: CHOLECALCIFEROL 1000 INTER.UNIT TAB PO SCH (09:15)
[2017-10-09] MEDS: OXYBUTYNIN CHLORIDE 5 MG TABCR PO SCH (09:15)
[2017-10-09] MEDS: METOPROLOL SUCC 25MG EXT REL TAB PO SCH (09:15)
[2017-10-09] MEDS: CYANOCOBALAMIN 500 MCG TAB (VIT B-12) PO SCH (09:15)
[2017-10-09] MEDS: EZETIMIBE 10MG TAB PO SCH (09:15)
[2017-10-09] MEDS: ASPIRIN 81 MG ECTAB PO SCH (09:16)
[2017-10-09] MEDS: ASCORBIC ACID 500 MG TAB PO SCH (09:16)
[2017-10-09] MEDS: POTASSIUM CHLORIDE 20 MEQ TABCR PO SCH (09:16)
[2017-10-09] MEDS: MAGNESIUM OXIDE 400 MG TAB PO SCH (09:16)
[2017-10-09] MEDS: HYDROCORTISONE 2.5% CR 30 GM TUBE EXT SCH (09:17)
[2017-10-09] MEDS: MUPIROCIN 2% OINT 22 GM TUBE EXT SCH (09:18)
[2017-10-09] MEDS: INSULIN ASPART 100 UNITS/ML 3 ML PEN SC SCH ×2 (09:21→12:39)
[2017-10-09 12:16] VITALS: TEMP 36.8
[2017-10-09 14:20] VITALS: BP 123/78; PULSE 88; O2SAT 96
--- NOTE | 2017-10-09 17:51 | Discharge Summary ---
Discharge Summary Date of Service Oct 09, 2017. Discharge Summary Admission Date: Oct 03, 2017 at 23:41 Discharge Date: Oct 09, 2017 Discharge Disposition: Home with services Principal Diagnosis: acute on chronic combined heart failure Immunizations: Have You Had Influenza Vaccine: Unknown History of Tetanus Vaccine?: Unknown History of Pneumococcal: Unknown History of Hepatitis B Vaccine: Unknown Medication Reconciliation New Medications: Potassium Chloride (Klor-Con M20) 20 Meq Tabcr 40 MEQ PO BID, #60 DOSE 6 Refills Changed Medications: Furosemide (Lasix) 40 Mg Tab 40 MG PO BID, #60 TAB 6 Refills (Changed from: QAM; Refills: ) Warfarin Sod (Coumadin) 3 Mg Tab 9 MG PO DAILY, #30 DOSE (Changed from: AMPM) Continued Medications: Albuterol Hfa (Ventolin Hfa) 200 Puffs/00290 Mcg Aers 2 PUFFS INH Q6H PRN for SOB/Wheezing, INHALER Albuterol Sulf (Proventil 0.083% 2.5MG/3ML) 2.5 Mg/3 Ml Nebu 2.5 MG INH BID, EA Ascorbic Acid (Chewable Vitamin C) 500 Mg Chw 500 MG PO QAM Aspirin (Aspirin 81) 81 Mg Tab 81 MG PO DAILY Budesonide (Inhalation) (Pulmicort Respules 0.25MG/2ML) 0.25 Mg/2 Ml Radha 2 ML INH BID, EA Cholecalciferol (Vitamin D3) 2,000 Unit Cap 3 CAP PO DAILY, CAP 3 Refills Cyanocobalamin (Vitamin B-12) 1,000 Mcg Tab 1000 MCG PO DAILY, TAB Cyclobenzaprine Hcl (Flexeril) 10 Mg Tab 10 MG PO BID PRN for Muscle Spasms, TAB Diphenhydramine Hcl (Benadryl Allergy) 25 Mg Cap 25 MG PO QAM, 2 Refills Diphenhydramine Hcl (Benadryl Allergy) 25 Mg Cap 25 MG PO Q4 PRN for Itching Epinephrine (Epipen) 0.3 Mg/0.3 Ml Inj 0.3 MG IM UD PRN for Allergic Reaction, BOX Ezetimibe (Zetia) 10 Mg Tab 10 MG PO DAILY, TAB Hydrocortisone (Hydrocortisone) 90 Appln/30 Gm Cr 1 APPLN TOP BID apply to groin Insulin Glargine (Lantus) 100 Unit/Ml Inj 45 UNITS SC QPM, VIAL Lorazepam (Ativan) 0.5 Mg Tab 0.5 MG PO BID PRN for Anxiety, TAB Magnesium Oxide (Mag-Ox) 400 Mg Tab 400 MG PO AMPM, TAB Metoprolol Succ (Toprol Xl) (Toprol-Xl) 25 Mg Tabcr 25 MG PO DAILY, #30 TAB Montelukast Sodium (Singulair) 10 Mg Tab 10 MG PO HS, TAB Mupirocin 2% (Bactroban 2%) 30 Gm Cr 1 APPLN EXT BID apply to groin Nitroglycerin (Nitrolingual Pumpspray) 0.4 Mg/[place] Spr 0.4 MG PO UD PRN for Chest Pain Oxybutynin Chloride Er (Ditropan Xl) 10 Mg Tab 10 MG PO DAILY, TAB Simvastatin (Zocor) 40 Mg Tab 40 MG PO QPM, TAB Tramadol (Ultram) 50 Mg Tab 100 MG PO Q8, TAB Discontinued Medications: Potassium (Potassium) 99 Mg Tab 99 MG PO DAILY Discharge Exam Review of Systems: Constitutional: No fever, No chills Respiratory: + dyspnea on exertion, No cough, No shortness of breath Cardiovascular: + edema, No chest pain Abdomen: No pain, No nausea, No vomiting, No diarrhea Physical Exam: General Appearance: WD/WN, no apparent distress, + obese Respiratory/Chest: chest non-tender, lungs clear, normal breath sounds Cardiovascular: regular rate, rhythm, no murmur Abdomen / GI: normal bowel sounds, non tender, soft Neurologic/Psychiatric: alert, oriented x 3 Hospital Course 66yo female with acute shortness of breath felt secondary to combined acute on chronic heart failure acute/chronic hypoxic respiratory failure - due to acute/chronic systolic/ diastolic CHF. Acute component resolved. Back to home O2 amount of 3 L. acute/chronic systolic/diastolic CHF - improved. Appreciate cardiology consultation. Echo results reviewed. lasix 40mg po BID. beta tanner. positive troponin - no symptoms of ACS. Suspect myocardial demand ischemia atrial fibrillation - now back in NSR. beta blopcker for rate control. Anticoagulation h/o paroxysmal ventricular tachycardia in July 2017 - has LifeVest Plans to follow up in [facility] with Dr Felton abnormal LFTs - resolved. secondary to passive congestion from CHF. Liver u/s was normal. Statin has been resumed. supratherapeutic INR - resolved. . due to the fact she has a mechanical aortic valve bridged w/ lovenox 1mg/kg now INR appropriate, continued with scheduled outpt monitoring hypokalemia - resolved. COPD (vs asthma) - had recent 2-week steroid taper. No exacerbation continue inhalers/ NC O2. T2DM - control is adequate with lantus & novolog. no toxic affects or hypoglycemia pt not interested in rehab Total Time Spent: Greater than 30 minutes This includes examination of the patient, discharge planning, medication reconciliation, and communication with other providers. Discharge Instructions Please refer to the electronic Patient Visit Report (Discharge Instructions) for additional information. Additional Copies To Javi Anthony M.D.
== END 2017-10-09 15:05 | disposition home health service (06) | DRG 291 ==
LOC: EDBD 22:01 → C.EDC 22:02 → C.2T 23:41 → ENRESERV 10-07 12:19 → C.MSW 10-07 14:37
PROVIDERS: ADMIT Hospitalist; ATTEND Internal Medicine
DX: I50.43 Acute on chronic combined systolic (congestive) and diastolic (congestive) heart failure (principal); J96.01 Acute respiratory failure with hypoxia; J44.1 Chronic obstructive pulmonary disease with (acute) exacerbation; Z68.41 Body mass index [BMI] 40.0-44.9, adult; I48.0 Paroxysmal atrial fibrillation; I11.0 Hypertensive heart disease with heart failure; E66.01 Morbid (severe) obesity due to excess calories; E11.9 Type 2 diabetes mellitus without complications; J45.909 Unspecified asthma, uncomplicated; E78.5 Hyperlipidemia, unspecified; I25.10 Atherosclerotic heart disease of native coronary artery without angina pectoris; E87.6 Hypokalemia; Z79.82 Long term (current) use of aspirin; Z79.4 Long term (current) use of insulin; Z99.3 Dependence on wheelchair; Z79.01 Long term (current) use of anticoagulants

== ENCOUNTER 2017-10-14 21:02 | Observation (INO) | payer OTHER, BC ==
[~2017-10-14] VITALS: Ht 152.4 cm; Wt 97.4 kg
[~2017-10-14 21:02] MED LIST: ALBINS/ INH; ASCO500C19 PO; ASPI-435 PO; BCTCR/30 EXT; BUDE0.253 INH; CHOL2000 PO; CMD3 PO; CYAN10005 PO; CYCL10TA6 PO; DIPH25CA65 PO; EPP3/2 IM; EZET10TA63 PO; FRS/40 PO; HYDCR25 TOP; INSDGI SC; LORA-741 PO; MAGN400T6 PO; MCRK20 PO; METO25TA3 PO; MONT1TAB3 PO; NITR0.4S74 PO; OXYB10TA PO; SIMV40TA2 PO; TRAM-10 PO; VNTHFA/IN INH
[2017-10-14] MEDS ORDERED: WARF3TAB6 PO (21:46)
[2017-10-14 22:07] LABS: BASO % 0.4 %; BASO ABS # 0.02 K/uL (0-0.2); EOS % 3.4 %; EOS ABS # 0.17 K/uL (0-0.5); HEMATOCRIT 37.2 % (37-47); HEMOGLOBIN 11.6 g/dL (12.0-16.0); IG# 0.01 K/uL (0.00-0.02); LYMPH % 21.3 %; LYMPH ABS # 1.05 K/uL (1.2-3.4); MEAN CELL VOLUME 90.5 fL (80-100); MEAN CORPUSCULAR HEMOGLOBIN 28.2 pg (25-34); MEAN CORPUSCULAR HGB CONC 31.2 g/dl (32-36); MEAN PLATELET VOLUME 12.4 fL (7.4-10.4); MONO % 6.5 %; MONO ABS # 0.32 K/uL (0.11-0.59); NEUT % 68.2 %; NEUT ABS # 3.36 K/uL (1.4-6.5); PLATELET COUNT 184 K/uL (130-400); RED CELL DISTRIBUTION WIDTH CV 15.4 % (11.5-14.5); RED CELL DISTRIBUTION WIDTH SD 51.1 fL (36.4-46.3); WHITE BLOOD COUNT 4.93 K/uL (4.8-10.8)
[2017-10-14 22:23] LABS: ALBUMIN 3.3 gm/dl (3.4-5.0); CALCIUM 9.1 mg/dl (8.5-10.1); CREATININE 0.83 mg/dl (0.60-1.20); POTASSIUM 3.7 mmol/L (3.5-5.1); PTT PATIENT 43.6 SECONDS (21.0-31.0); TOTAL PROTEIN 7.1 gm/dl (6.4-8.2)
[2017-10-14] MEDS ORDERED: ASPIRIN 81 MG CHEW PO STA (22:32)
[2017-10-14 22:35] LABS: INR 5.3 (0.9-1.1)
--- NOTE | 2017-10-14 22:45 | DIAGNOSTIC IMAGING REPORT ---
SINGLE VIEW CHEST CLINICAL HISTORY: Dyspnea. FINDINGS: An AP, portable, upright chest radiograph is compared to study dated 10/03/2017. The examination is degraded by portable technique and patient rotation. The patient is status post midline sternotomy. The heart is markedly enlarged and there is atherosclerotic calcification of the thoracic aorta. The pulmonary vasculature is noncongested. There is minimal left basilar atelectasis. No airspace consolidation or large pleural effusion is identified. No pneumothorax is seen. The skeletal structures are osteopenic. The bony thorax is grossly intact. IMPRESSION: Cardiomegaly with no acute cardiopulmonary abnormality. Electronically signed by: Bennie Alcaraz M.D. 10/14/2017 10:44 PM Dictated Date/Time: 10/14/2017 10:43 PM
[2017-10-14] MEDS ORDERED: CYCLOBENZAPRINE HCL 10 MG TAB PO PRN (23:45)
[2017-10-14] MEDS ORDERED: LORAZEPAM 0.5 MG TAB PO PRN (23:45)
[2017-10-15] VITALS (15 sets, daily range): BP systolic 113–146; BP diastolic 66–73; PULSE 68–115; TEMP 36.4–37.4; O2SAT 95–98; BMI 43.1
--- NOTE | 2017-10-15 00:07 | History and Physical ---
History & Physical Date & Time of Service: Oct 14, 2017 at 23:36 Chief Complaint: breathing difficulties Primary Care Physician: John Howard M.D. History of Present Illness Source: patient Past Medical/Surgical History 1) Chronic combined CHF - EF 30-35% - Grade II diastolic dysfunction - echo 06/12 2) COPD - 3L 02 3) Chronic AF 4) LBBB 4) DM II 5) Morbid obesity 6) HTN 7) CAD - RCA stent - cardiac cath performed in 2017 described a patent stent and no additional significant disease. Social History Smoking Status: Never Smoker Drug Use: none Marital Status: single Occupational Status: retired Immunizations History of Influenza Vaccine: Unknown History of Tetanus Vaccine?: Unknown History of Pneumococcal: Unknown History of Hepatitis B Vaccine: Unknown Multi-Drug Resistant Organisms History of MDRO: No Allergies Coded Allergies: Azithromycin (Verified Allergy, Severe, GI SYMPTOMS, 10/14/17) Ephedrine (Verified Allergy, Severe, GI SYMPTOMS, 10/14/17) Erythromycin (Verified Allergy, Severe, GI SYMPTOMS, 10/14/17) Hydroxyzine (Verified Allergy, Severe, GI SYMPTOMS, 10/14/17) Nitrofurantoin (Verified Allergy, Severe, GI SYMPTOMS, 10/14/17) Theophylline (Verified Allergy, Severe, GI SYMPTOMS, 10/14/17) Home Medications Scheduled Albuterol Sulf (Proventil 0.083% 2.5MG/3ML), 2.5 MG INH BID Ascorbic Acid (Chewable Vitamin C), 500 MG PO QAM Aspirin (Aspirin 81), 81 MG PO DAILY Budesonide (Inhalation) (Pulmicort Respules 0.25MG/2ML), 2 ML INH BID Cholecalciferol (Vitamin D3), 3 CAP PO DAILY Cyanocobalamin (Vitamin B-12), 1,000 MCG PO DAILY Diphenhydramine Hcl (Benadryl Allergy), 25 MG PO QAM Ezetimibe (Zetia), 10 MG PO QPM Furosemide (Lasix), 40 MG PO BID Hydrocortisone (Hydrocortisone), 1 APPLN TOP BID Insulin Glargine (Lantus), 45 UNITS SC QPM Magnesium Oxide (Mag-Ox), 400 MG PO AMPM Metoprolol Succ (Toprol Xl) (Toprol-Xl), 25 MG PO DAILY Montelukast Sodium (Singulair), 10 MG PO HS Mupirocin 2% (Bactroban 2%), 1 APPLN EXT BID Oxybutynin Chloride Er (Ditropan Xl), 10 MG PO DAILY Potassium Chloride (Klor-Con M20), 40 MEQ PO BID Simvastatin (Zocor), 40 MG PO QPM Tramadol (Ultram), 100 MG PO Q8 Warfarin Sod (Jantoven), 9 MG PO BID Scheduled PRN Albuterol Hfa (Ventolin Hfa), 2 PUFFS INH Q6H PRN for SOB/Wheezing Cyclobenzaprine Hcl (Flexeril), 10 MG PO BID PRN for Muscle Spasms Diphenhydramine Hcl (Benadryl Allergy), 25 MG PO Q4 PRN for Itching Epinephrine (Epipen), 0.3 MG IM UD PRN for Allergic Reaction Lorazepam (Ativan), 0.5 MG PO BID PRN for Anxiety Nitroglycerin (Nitrolingual Pumpspray), 0.4 MG PO UD PRN for Chest Pain Physical Exam Vital Signs Date Time Temp Pulse Resp B/P (MAP) Pulse Ox O2 Delivery O2 Flow Rate FiO2 10/14/17 22:06 100 Nasal Cannula 2.0 10/14/17 22:06 100 Nasal Cannula 2.0 10/14/17 21:43 91 10/14/17 21:23 100 Room Air 10/14/17 21:06 98 Nasal Cannula 2.0 10/14/17 21:06 36.6 90 24 168/76 99 Room Air Diagnostics Laboratory Results Results Past 24 Hours Test 10/14/17 21:30 10/14/17 22:29 Range/Units White Blood Count 4.93 4.8-10.8 K/uL Red Blood Count 4.11 4.2-5.4 M/uL Hemoglobin 11.6 12.0-16.0 g/dL Hematocrit 37.2 37-47 % Mean Corpuscular Volume 90.5 80-100 fL Mean Corpuscular Hemoglobin 28.2 25-34 pg Mean Corpuscular Hemoglobin Concent 31.2 32-36 g/dl Platelet Count 184 130-400 K/uL Mean Platelet Volume 12.4 7.4-10.4 fL Neutrophils (%) (Auto) 68.2 % Lymphocytes (%) (Auto) 21.3 % Monocytes (%) (Auto) 6.5 % Eosinophils (%) (Auto) 3.4 % Basophils (%) (Auto) 0.4 % Neutrophils # (Auto) 3.36 1.4-6.5 K/uL Lymphocytes # (Auto) 1.05 1.2-3.4 K/uL Monocytes # (Auto) 0.32 0.11-0.59 K/uL Eosinophils # (Auto) 0.17 0-0.5 K/uL Basophils # (Auto) 0.02 0-0.2 K/uL RDW Standard Deviation 51.1 36.4-46.3 fL RDW Coefficient of Variation 15.4 11.5-14.5 % Immature Granulocyte % (Auto) 0.2 % Immature Granulocyte # (Auto) 0.01 0.00-0.02 K/uL Prothrombin Time 54.2 9.0-12.0 SECONDS Prothromb Time International Ratio 5.3 0.9-1.1 Activated Partial Thromboplast Time 43.6 21.0-31.0 SECONDS Partial Thromboplastin Ratio 1.7 Sodium Level 137 136-145 mmol/L Potassium Level 3.7 3.5-5.1 mmol/L Chloride Level 99 98-107 mmol/L Carbon Dioxide Level 30 21-32 mmol/L Anion Gap 9.0 3-11 mmol/L Blood Urea Nitrogen 19 7-18 mg/dl Creatinine 0.83 0.60-1.20 mg/dl Est Creatinine Clear Calc Drug Dose 67.4 ml/min Estimated GFR () 84.0 Estimated GFR (Non- 72.5 BUN/Creatinine Ratio 23.1 10-20 Random Glucose 163 70-99 mg/dl Calcium Level 9.1 8.5-10.1 mg/dl Total Bilirubin 0.4 0.2-1 mg/dl Aspartate Amino Transf (AST/SGOT) 30 15-37 U/L Alanine Aminotransferase (ALT/SGPT) 32 12-78 U/L Alkaline Phosphatase 82 45-117 U/L Troponin I 0.022 0-0.045 ng/ml Pro-B-Type Natriuretic Peptide 1442 0-900 pg/ml Total Protein 7.1 6.4-8.2 gm/dl Albumin 3.3 3.4-5.0 gm/dl Globulin 3.8 2.5-4.0 gm/dl Albumin/Globulin Ratio 0.9 0.9-2 Chemistry Specimen Hemolysis Diagnostic Radiology CXR: Cardiomegaly with no acute cardiopulmonary abnormality. EKG AF, LBBB - no significant change from previous
--- NOTE | 2017-10-15 00:31 | Medical Consult ---
Consultation Date of Consultation: Oct 15, 2017. Attending Physician: History of Present Illness 67 y/o F Hx CAD, combined CHF, chronic AF, LBBB, DM, HTN, COPD 2L 02, morbid obesity. Pt states that beginning the previous evening, she developed abdominal distention which she attributed to gastroparesis. She states she takes NTG when this occurs as it causes her to burp which in turn provides a measure of relief. She also states that throughout the day she was more dyspneic than usual with exertion. She uses 2L 02 continuously and 3L with exertion. Her 02 demands have not increased. Considering her cardiac history, she was understandably concerned and presented to the ER for evaluation. The pt had apparently complained of exertional CP to the ER attending but denied this at the time of medical evaluation. She was able to tolerate a full meal this AM and denies any N/V, diaphoresis or lightheadedness. She states she missed her PM dose of Lasix but provides that she feels generally better since arriving in the ER. Initial labs and EKG do not support acute ischemia. Clinical assessment and imaging are not consistent with significant volume overload. Past Medical/Surgical History 1) Chronic combined CHF - EF 30-35% - Grade II diastolic dysfunction - echo 06/12 2) COPD - 3L 02 3) Chronic AF 4) LBBB 4) DM II 5) Morbid obesity 6) HTN 7) CAD - RCA stent - cardiac cath performed in 2017 described a patent stent and no additional significant disease. 8) The pt is wearing a life vest as she was suspected to have had runs of VT at an outside hospital a few weeks earlier. Thus far the vest has not discharged and there is no clear evidence of sustained or nonsustained VTs presently. Family History Noncontributory Social History Smoking Status: Never Smoker Drug Use: none Marital Status: single Occupation Status: retired Allergies Coded Allergies: Azithromycin (Verified Allergy, Severe, GI SYMPTOMS, 10/14/17) Ephedrine (Verified Allergy, Severe, GI SYMPTOMS, 10/14/17) Erythromycin (Verified Allergy, Severe, GI SYMPTOMS, 10/14/17) Hydroxyzine (Verified Allergy, Severe, GI SYMPTOMS, 10/14/17) Nitrofurantoin (Verified Allergy, Severe, GI SYMPTOMS, 10/14/17) Theophylline (Verified Allergy, Severe, GI SYMPTOMS, 10/14/17) Review of Systems Constitutional: No fever, No chills, No sweats Eyes: No worsening of vision ENT: No hearing loss, No unusual epistaxis, No nasal symptoms Respiratory: + shortness of breath, + dyspnea on exertion, + dyspnea at rest Cardiovascular: + problem reported (Described epigastric discomfort), No chest pain, No orthopnea, No PND Abdomen: + pain (Described epigastric discomfort - abdominal distetion) Musculoskeletal: No joint pain Genitourinary - Female: No dysuria, No urinary frequency, No urinary urgency Neurologic: No memory loss, No weakness Psychiatric: No depression symptoms Endocrine: No fatigue Hematologic / Lymphatic: No abnormal bleeding/bruising Integumentary: No rash Allergic / Immunologic: No environmental allergies Physical Exam Date Time Temp Pulse Resp B/P (MAP) Pulse Ox O2 Delivery O2 Flow Rate FiO2 10/14/17 22:06 100 Nasal Cannula 2.0 10/14/17 22:06 100 Nasal Cannula 2.0 10/14/17 21:43 91 10/14/17 21:23 100 Room Air 10/14/17 21:06 98 Nasal Cannula 2.0 10/14/17 21:06 36.6 90 24 168/76 99 Room Air General Appearance: WD/WN, no apparent distress, + obese Head: normocephalic Eyes: normal inspection ENT: normal ENT inspection, pharynx normal Neck: supple, no JVD Respiratory/Chest: chest non-tender, lungs clear, + pertinent finding ( Generally poor air moveemnt without crackles or wheezing) Cardiovascular: + irregularly irregular, + pertinent finding (faint heart sounds - no murmur) Abdomen/GI: normal bowel sounds, non tender Back: normal inspection, no CVA tenderness Extremities/Musculoskelatal: + pedal edema 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, no motor/sensory deficits, alert, oriented x 3 Skin: normal color, + pertinent finding (Stasis changes of lower extremity) Laboratory Results Last 24 Hours Test 10/14/17 21:30 10/14/17 22:29 White Blood Count 4.93 K/uL Red Blood Count 4.11 M/uL Hemoglobin 11.6 g/dL Hematocrit 37.2 % Mean Corpuscular Volume 90.5 fL Mean Corpuscular Hemoglobin 28.2 pg Mean Corpuscular Hemoglobin Concent 31.2 g/dl Platelet Count 184 K/uL Mean Platelet Volume 12.4 fL Neutrophils (%) (Auto) 68.2 % Lymphocytes (%) (Auto) 21.3 % Monocytes (%) (Auto) 6.5 % Eosinophils (%) (Auto) 3.4 % Basophils (%) (Auto) 0.4 % Neutrophils # (Auto) 3.36 K/uL Lymphocytes # (Auto) 1.05 K/uL Monocytes # (Auto) 0.32 K/uL Eosinophils # (Auto) 0.17 K/uL Basophils # (Auto) 0.02 K/uL RDW Standard Deviation 51.1 fL RDW Coefficient of Variation 15.4 % Immature Granulocyte % (Auto) 0.2 % Immature Granulocyte # (Auto) 0.01 K/uL Prothrombin Time 54.2 SECONDS Prothromb Time International Ratio 5.3 Activated Partial Thromboplast Time 43.6 SECONDS Partial Thromboplastin Ratio 1.7 Sodium Level 137 mmol/L Potassium Level 3.7 mmol/L Chloride Level 99 mmol/L Carbon Dioxide Level 30 mmol/L Anion Gap 9.0 mmol/L Blood Urea Nitrogen 19 mg/dl Creatinine 0.83 mg/dl Est Creatinine Clear Calc Drug Dose 67.4 ml/min Estimated GFR () 84.0 Estimated GFR (Non- 72.5 BUN/Creatinine Ratio 23.1 Random Glucose 163 mg/dl Calcium Level 9.1 mg/dl Total Bilirubin 0.4 mg/dl Aspartate Amino Transf (AST/SGOT) 30 U/L Alanine Aminotransferase (ALT/SGPT) 32 U/L Alkaline Phosphatase 82 U/L Troponin I 0.022 ng/ml Pro-B-Type Natriuretic Peptide 1442 pg/ml Total Protein 7.1 gm/dl Albumin 3.3 gm/dl Globulin 3.8 gm/dl Albumin/Globulin Ratio 0.9 Chemistry Specimen Hemolysis Assessment & Plan 67 y/o F Hx CAD, combined CHF, chronic AF, LBBB, DM, HTN, COPD 2L 02, morbid obesity. Pt states that beginning the previous evening, she developed abdominal distention which she attributed to gastroparesis. She states she takes NTG when this occurs as it causes her to burp which in turn provides a measure of relief. She also states that throughout the day she was more dyspneic than usual with exertion. She uses 2L 02 continuously and 3L with exertion. Her 02 demands have not increased. Considering her cardiac history, she was understandably concerned and presented to the ER for evaluation. The pt had apparently complained of exertional CP to the ER attending but denied this at the time of medical evaluation. She was able to tolerate a full meal this AM and denies any N/V, diaphoresis or lightheadedness. She states she missed her PM dose of Lasix but provides that she feels generally better since arriving in the ER. Initial labs and EKG do not support acute ischemia. Clinical assessment and imaging are not consistent with significant volume overload. 1) Abdominal distention - may have been described as chest discomfort or CP initially - she denies current CP or CP since the previous evening. She has a history of CAD, although a cath in 2017 revealed a patent stent and no additional significant disease. The pt was intended for admission to r/o [place]. Considering her symptoms began > 24 hours prior, she is currently asymptomatic and initial EKG and trop are baseline, we will recommend outpt f/u. We are pending a repeat trop - admission will be advised if there is an upward trend. 2) CHF - pt is advised to comply with her diuretics in a timely manner - she does not currently have JVD or crackles to support volume overload and 02 requirement are at baseline. Cont Lasix, Metoprolol - she is not currently receiving an BRANT or ARB - presumably she does not tolerate these meds. 3) AF - cont Metoprolol - INR is slightly high - can likely skip one day of Coumadin or reduce dose. 4) DM - cont Insulin as prescribed 5) COPD - no evidence of acute exacerbation or increased 02 demands - cont prescribed inhalers. Total time for this consult including review of meds, labs, EKG, CXR, extensive records - discussion with pt and ER attending - 42 min
[2017-10-15 00:51] LABS: INR 5.7 (0.9-1.1)
--- NOTE | 2017-10-15 01:23 | EMERGENCY ROOM VISIT NOTE ---
History Report prepared by Chava: Juliet Rodriguez Under the Supervision of: Dr. Guru Sosa D.O. First contact with patient: 21:38 Chief Complaint: SHORTNESS OF BREATH Stated Complaint: breathing difficulties Nursing Triage Summary: Pt c/o increased SOB with exertion. Currently on 2L via NC. Hx of COPD. Pt states she was placed on a cardiac lifevest 4 months ago, vest currently on. History of Present Illness The patient is a 67 year old female who presents to the Emergency Room brought in by EMS with complaints of persistent shortness of breath since last night. She also notes mild chest pain that also began last night. She has a history of gastro paresis and notes that she became bloated and distended during the night for fifteen minutes. She notes that she became bloated during the night. She notes the shortness of breath and chest pain worsens with exertion. She notes left shoulder pain, though does not feel the pain is related to her chest pain. She currently rates her pain a 3/10 in severity. She was recently hospitalized from October 04, 2017 to October 09, 2017 with acute systolic and diastolic CHF and a history of paroxysmal ventricular tachycardia. She notes that she was initially admitted to the hospital because her Coumadin level was abnormal. She normally wears 3 L oxygen via NC. She denies any history of MD. She takes Warfarin for atrial fibrillation. She notes aortic valve replacement and she has a cardiac stent. She notes bilateral leg swelling. She notes a history of asthma. She denies a history of COPD. Patient denies diabetes, hypertension, hyperlipidemia, family history of sudden at a young age, and smoking. Pt denies headache, change in vision, fevers, runny nose, nausea, vomiting, diarrhea, pain with urination, and melena. Source of History: patient Onset: last night Position: other (global ) Symptom Intensity: 3/10 Quality: other (shortness of breath) Timing: other (persistent) Associated Symptoms: + chest pain (mild), No fevers, No headache, No nausea , No vomiting, No melena, No diarrhea, No urinary symptoms (no pain with urination) Note: She notes bloating and left shoulder pain. She notes shortness of breath. She denies any change in vision and runny nose. Review of Systems See HPI for pertinent positives & negatives. A total of 10 systems reviewed and were otherwise negative. Past Medical & Surgical Medical Problems: (1) Acute respiratory failure with hypoxia (2) Acute systolic CHF (congestive heart failure), NYHA class 3 Family History No pertinent family history Social History Smoking Status: Never Smoker Drug Use: none Marital Status: single Occupation Status: retired Current/Historical Medications Scheduled Albuterol Sulf (Proventil 0.083% 2.5MG/3ML), 2.5 MG INH BID Ascorbic Acid (Chewable Vitamin C), 500 MG PO QAM Aspirin (Aspirin 81), 81 MG PO DAILY Budesonide (Inhalation) (Pulmicort Respules 0.25MG/2ML), 2 ML INH BID Cholecalciferol (Vitamin D3), 3 CAP PO DAILY Cyanocobalamin (Vitamin B-12), 1,000 MCG PO DAILY Diphenhydramine Hcl (Benadryl Allergy), 25 MG PO QAM Ezetimibe (Zetia), 10 MG PO QPM Furosemide (Lasix), 40 MG PO BID Hydrocortisone (Hydrocortisone), 1 APPLN TOP BID Insulin Glargine (Lantus), 45 UNITS SC QPM Magnesium Oxide (Mag-Ox), 400 MG PO AMPM Metoprolol Succ (Toprol Xl) (Toprol-Xl), 25 MG PO DAILY Montelukast Sodium (Singulair), 10 MG PO HS Mupirocin 2% (Bactroban 2%), 1 APPLN EXT BID Oxybutynin Chloride Er (Ditropan Xl), 10 MG PO DAILY Potassium Chloride (Klor-Con M20), 40 MEQ PO BID Simvastatin (Zocor), 40 MG PO QPM Tramadol (Ultram), 100 MG PO Q8 Warfarin Sod (Jantoven), 9 MG PO BID Scheduled PRN Albuterol Hfa (Ventolin Hfa), 2 PUFFS INH Q6H PRN for SOB/Wheezing Cyclobenzaprine Hcl (Flexeril), 10 MG PO BID PRN for Muscle Spasms Diphenhydramine Hcl (Benadryl Allergy), 25 MG PO Q4 PRN for Itching Epinephrine (Epipen), 0.3 MG IM UD PRN for Allergic Reaction Lorazepam (Ativan), 0.5 MG PO BID PRN for Anxiety Nitroglycerin (Nitrolingual Pumpspray), 0.4 MG PO UD PRN for Chest Pain Allergies Coded Allergies: Azithromycin (Verified Allergy, Severe, GI SYMPTOMS, 10/14/17) Ephedrine (Verified Allergy, Severe, GI SYMPTOMS, 10/14/17) Erythromycin (Verified Allergy, Severe, GI SYMPTOMS, 10/14/17) Hydroxyzine (Verified Allergy, Severe, GI SYMPTOMS, 10/14/17) Nitrofurantoin (Verified Allergy, Severe, GI SYMPTOMS, 10/14/17) Theophylline (Verified Allergy, Severe, GI SYMPTOMS, 10/14/17) Physical Exam Vital Signs Date Time Temp Pulse Resp B/P (MAP) Pulse Ox O2 Delivery O2 Flow Rate FiO2 10/14/17 23:54 84 24 139/70 100 10/14/17 22:06 100 Nasal Cannula 2.0 10/14/17 22:06 100 Nasal Cannula 2.0 10/14/17 21:43 91 10/14/17 21:23 100 Room Air 10/14/17 21:06 98 Nasal Cannula 2.0 10/14/17 21:06 36.6 90 24 168/76 99 Room Air Physical Exam GENERAL: Sitting up in bed, alert, well appearing, well nourished, no distress, non-toxic. Talking in full sentences. On NC. EYE EXAM: normal conjunctiva. OROPHARYNX: no exudate, no erythema, lips, buccal mucosa, and tongue normal and mucous membranes are moist NECK: supple, no nuchal rigidity, no adenopathy, non-tender LUNGS: faint wheezes bilaterally . Normal chest wall mechanics HEART: no murmurs, S1 normal and S2 normal ABDOMEN: abdomen soft, non-tender, normo-active bowel sounds, no masses, no rebound or guarding. BACK: Back is symmetrical on inspection and there is no deformity, no midline tenderness, no CVA tenderness. SKIN: no rashes and no bruising UPPER EXTREMITIES: upper extremities are grossly normal. LOWER EXTREMITIES: No pitting edema. Right calf is larger than left. NEURO EXAM: Normal sensorium, cranial nerves II-XII grossly intact, normal speech, no gross weakness of arms, no gross weakness of legs. Medical Decision & Procedures ER Provider Diagnostic Interpretation: Radiology results as stated below per my review and the radiologist's interpretation: SINGLE VIEW CHEST CLINICAL HISTORY: Dyspnea. FINDINGS: An AP, portable, upright chest radiograph is compared to study dated 10/03/2017. The examination is degraded by portable technique and patient rotation. The patient is status post midline sternotomy. The heart is markedly enlarged and there is atherosclerotic calcification of the thoracic aorta. The pulmonary vasculature is noncongested. There is minimal left basilar atelectasis. No airspace consolidation or large pleural effusion is identified. No pneumothorax is seen. The skeletal structures are osteopenic. The bony thorax is grossly intact. IMPRESSION: Cardiomegaly with no acute cardiopulmonary abnormality. Electronically signed by: Bennie Alcaraz M.D. 10/14/2017 10:44 PM Dictated Date/Time: 10/14/2017 10:43 PM Laboratory Results 10/14/17 21:30 Red Blood Count 4.11, Mean Corpuscular Volume 90.5, Mean Corpuscular Hemoglobin 28.2, Mean Corpuscular Hemoglobin Concent 31.2, Mean Platelet Volume 12.4, Neutrophils (%) (Auto) 68.2, Lymphocytes (%) (Auto) 21.3, Monocytes (%) (Auto) 6.5, Eosinophils (%) (Auto) 3.4, Basophils (%) (Auto) 0.4, Neutrophils # (Auto) 3.36, Lymphocytes # (Auto) 1.05, Monocytes # (Auto) 0.32, Eosinophils # (Auto) 0.17, Basophils # (Auto) 0.02 10/14/17 21:30 Test 10/14/17 21:30 10/15/17 00:11 White Blood Count 4.93 K/uL (4.8-10.8) Red Blood Count 4.11 M/uL (4.2-5.4) Hemoglobin 11.6 g/dL (12.0-16.0) Hematocrit 37.2 % (37-47) Mean Corpuscular Volume 90.5 fL (80-100) Mean Corpuscular Hemoglobin 28.2 pg (25-34) Mean Corpuscular Hemoglobin Concent 31.2 g/dl (32-36) Platelet Count 184 K/uL (130-400) Mean Platelet Volume 12.4 fL (7.4-10.4) Neutrophils (%) (Auto) 68.2 % Lymphocytes (%) (Auto) 21.3 % Monocytes (%) (Auto) 6.5 % Eosinophils (%) (Auto) 3.4 % Basophils (%) (Auto) 0.4 % Neutrophils # (Auto) 3.36 K/uL (1.4-6.5) Lymphocytes # (Auto) 1.05 K/uL (1.2-3.4) Monocytes # (Auto) 0.32 K/uL (0.11-0.59) Eosinophils # (Auto) 0.17 K/uL (0-0.5) Basophils # (Auto) 0.02 K/uL (0-0.2) RDW Standard Deviation 51.1 fL (36.4-46.3) RDW Coefficient of Variation 15.4 % (11.5-14.5) Immature Granulocyte % (Auto) 0.2 % Immature Granulocyte # (Auto) 0.01 K/uL (0.00-0.02) Activated Partial Thromboplast Time 43.6 SECONDS (21.0-31.0) Partial Thromboplastin Ratio 1.7 Anion Gap 9.0 mmol/L (3-11) Est Creatinine Clear Calc Drug Dose 67.4 ml/min Estimated GFR () 84.0 Estimated GFR (Non- 72.5 BUN/Creatinine Ratio 23.1 (10-20) Calcium Level 9.1 mg/dl (8.5-10.1) Total Bilirubin 0.4 mg/dl (0.2-1) Aspartate Amino Transf (AST/SGOT) 30 U/L (15-37) Alanine Aminotransferase (ALT/SGPT) 32 U/L (12-78) Alkaline Phosphatase 82 U/L (45-117) Pro-B-Type Natriuretic Peptide 1442 pg/ml (0-900) Total Protein 7.1 gm/dl (6.4-8.2) Albumin 3.3 gm/dl (3.4-5.0) Globulin 3.8 gm/dl (2.5-4.0) Albumin/Globulin Ratio 0.9 (0.9-2) Chemistry Specimen Hemolysis Prothrombin Time 57.5 SECONDS (9.0-12.0) Prothromb Time International Ratio 5.7 (0.9-1.1) Troponin I 0.043 ng/ml (0-0.045) Laboratory results per my review. Medications Administered Medications (Trade) Dose Ordered Sig/Naun Route Start Time Stop Time Status Last Admin Dose Admin Aspirin (Aspirin Chew) 324 mg NOW STAT PO 10/14/17 22:32 10/14/17 22:33 DC 10/14/17 22:45 324 MG ECG Indication: SOB/dyspnea Rate (beats per minute): 96 Rhythm: sinus rhythm Findings: PVC, ST depression (Lateral), left axis deviation Comparison ECG Date: Patient's electrocardiogram interpreted by me Change: Repeat ECG: SR 90 LBBB and poor baseline. Atrial fibrillation is old when compared to 10/03/2017 ED Course ED COURSE: Vital signs were reviewed and showed normal. The patients medical record was reviewed The above diagnostic studies were performed and reviewed. ED treatments and interventions as stated above. 214: The patient was evaluated in room C7. A complete history and physical examination was performed. 2231: Ordered Aspirin 324 PO 2332: Upon reevaluation, I discussed my findings with the patient and she understands and agrees with the treatment plan. Based on the patients age, coexisting illnesses, exam and lab findings the decision to treat as an inpatient was made. The patient remained stable while under my care. The patient will be evaluated for further management. 2335: I spoke with mo Hurtado. We discussed the patients case. The patient will be evaluated by the [facility] for further management. 2358: I spoke with mo Hurtado. He recommends repeating troponin; if negative, he recommends discharge. 0105: I spoke with mo Hurtado. He is evaluating the patient. Medical Decision Differential diagnoses includes but is not limited to acute coronary syndrome, myocardial infarction, pericarditis, pulmonary embolus, aortic dissection, pneumonia, pneumothorax, musculoskeletal, shingles, esophageal. Patient is a 67-year-old female who presents to ER for exertional chest pain and shortness of breath which has been present since last night. Patient was recently admitted and discharged for CHF at which point she had an elevated troponin. CBC along with BMP, LFTs, bilirubin was unremarkable. BNP was elevated at 1400. Troponin was initially obtained and was 0.022. Following her initial workup. She was given aspirin. I did discuss with internal medicine for observation as she has a history of possible paroxysmal VT and a previous stent. Patient was evaluated by internal medicine. Initially recommended repeat troponin. This repeat troponin doubled. I rediscussed the case with internal medicine. He notes he will evaluate the patient and discharged the patient home a few times possible. He did note that recent cath in 2017 was unremarkable. Patient is resting comfortably in the ER. Medication Reconcilliation Current Medication List: was personally reviewed by me Blood Pressure Screening Patient's blood pressure: Normal blood pressure Consults Time Called: 233 Consulting Physician: Dr. Osborne, hospitalist I spoke with mo Hurtado. We discussed the patients case. The patient will be evaluated by the [facility] for further management. 2358: I spoke with mo Hurtado. He recommends repeating troponin; if negative, he recommends discharge. 0108: I spoke with mo Hurtado. He is evaluating the patient. Impression Primary Impression: Dyspnea Additional Impression: Exertional chest pain Scribe Attestation The scribe's documentation has been prepared under my direction and personally reviewed by me in its entirety. I confirm that the note above accurately reflects all work, treatment, procedures, and medical decision making performed by me. Departure Information Dispostion Being Evaluated By Hospitalist Referrals John Howard M.D. (PCP) Patient Instructions My [facility] Problem Qualifiers Primary Impression: Dyspnea Dyspnea type: dyspnea on exertion Qualified Codes: R06.09 - Other forms of dyspnea
[2017-10-15] MEDS ORDERED: NITROGLYCERIN 2% OINTMENT 30GM TUBE EXT STA (01:28)
[2017-10-15] MEDS ORDERED: ALBUTEROL 0.083% NEBU SOLN 3 ML VIAL INH STA (01:28)
[2017-10-15] MEDS ORDERED: ONDANSETRON INJ 2 MG/ML 2 ML VIAL IV PRN (01:30)
[2017-10-15] MEDS ORDERED: MoRPHine SULFATE 2 MG/ML CARP IV PRN (01:30)
[2017-10-15] MEDS ORDERED: MAGNESIUM HYDROXIDE SUSP 30 ML UDC PO PRN (01:30)
[2017-10-15] MEDS ORDERED: ACETAMINOPHEN 325 MG TAB PO PRN (01:30)
[2017-10-15] MEDS ORDERED: POLYETHYLENE (MIRALAX) 17 GM PACK PO PRN (01:30)
--- NOTE | 2017-10-15 01:32 | History and Physical ---
History & Physical Date of Service Oct 15, 2017. History & Physical History of Present Illness 67 y/o F Hx CAD, combined CHF, chronic AF, LBBB, DM, HTN, COPD 2L 02, morbid obesity. Pt states that beginning the previous evening, she developed abdominal distention which she attributed to gastroparesis. She states she takes NTG when this occurs as it causes her to burp which in turn provides a measure of relief. She also states that throughout the day she was more dyspneic than usual with exertion. She uses 2L 02 continuously and 3L with exertion. Her 02 demands have not increased. Considering her cardiac history, she was understandably concerned and presented to the ER for evaluation. The pt had apparently complained of exertional CP to the ER attending but denied this at the time of medical evaluation. She was able to tolerate a full meal this AM and denies any N/V, diaphoresis or lightheadedness. She states she missed her PM dose of Lasix but provides that she feels generally better since arriving in the ER. Initial labs and EKG do not support acute ischemia. Clinical assessment and imaging are not consistent with significant volume overload. Past Medical/Surgical History 1) Chronic combined CHF - EF 30-35% - Grade II diastolic dysfunction - echo 06/12 2) COPD - 3L 02 3) Chronic AF 4) LBBB 4) DM II 5) Morbid obesity 6) HTN 7) CAD - RCA stent - cardiac cath performed in 2017 described a patent stent and no additional significant disease. 8) The pt is wearing a life vest as she was suspected to have had runs of VT at an outside hospital a few weeks earlier. Thus far the vest has not discharged and there is no clear evidence of sustained or nonsustained VTs presently. Family History Noncontributory Social History Smoking Status: Never Smoker Drug Use: none Marital Status: single Occupation Status: retired Allergies Coded Allergies: Azithromycin (Verified Allergy, Severe, GI SYMPTOMS, 10/14/17) Ephedrine (Verified Allergy, Severe, GI SYMPTOMS, 10/14/17) Erythromycin (Verified Allergy, Severe, GI SYMPTOMS, 10/14/17) Hydroxyzine (Verified Allergy, Severe, GI SYMPTOMS, 10/14/17) Nitrofurantoin (Verified Allergy, Severe, GI SYMPTOMS, 10/14/17) Theophylline (Verified Allergy, Severe, GI SYMPTOMS, 10/14/17) Review of Systems Constitutional: No fever, No chills, No sweats Eyes: No worsening of vision ENT: No hearing loss, No unusual epistaxis, No nasal symptoms Respiratory: + shortness of breath, + dyspnea on exertion, + dyspnea at rest Cardiovascular: + problem reported (Described epigastric discomfort), No chest pain, No orthopnea, No PND Abdomen: + pain (Described epigastric discomfort - abdominal distetion) Musculoskeletal: No joint pain Genitourinary - Female: No dysuria, No urinary frequency, No urinary urgency Neurologic: No memory loss, No weakness Psychiatric: No depression symptoms Endocrine: No fatigue Hematologic / Lymphatic: No abnormal bleeding/bruising Integumentary: No rash Allergic / Immunologic: No environmental allergies Physical Exam Date Time Temp Pulse Resp B/P (MAP) Pulse Ox O2 Delivery O2 Flow Rate FiO2 10/14/17 22:06 100 Nasal Cannula 2.0 10/14/17 22:06 100 Nasal Cannula 2.0 10/14/17 21:43 91 10/14/17 21:23 100 Room Air 10/14/17 21:06 98 Nasal Cannula 2.0 10/14/17 21:06 36.6 90 24 168/76 99 Room Air General Appearance: WD/WN, no apparent distress, + obese Head: normocephalic Eyes: normal inspection ENT: normal ENT inspection, pharynx normal Neck: supple, no JVD Respiratory/Chest: chest non-tender, lungs clear, + pertinent finding ( Generally poor air moveemnt without crackles or wheezing) Cardiovascular: + irregularly irregular, + pertinent finding (faint heart sounds - no murmur) Abdomen/GI: normal bowel sounds, non tender Back: normal inspection, no CVA tenderness Extremities/Musculoskelatal: + pedal edema Neurologic/Psych: recordist II-XII nml as tested, no motor/sensory deficits, alert, oriented x 3 Skin: normal color, + pertinent finding (Stasis changes of lower extremity) Laboratory Results Last 24 Hours Test 10/14/17 21:30 10/14/17 22:29 White Blood Count 4.93 K/uL Red Blood Count 4.11 M/uL Hemoglobin 11.6 g/dL Hematocrit 37.2 % Mean Corpuscular Volume 90.5 fL Mean Corpuscular Hemoglobin 28.2 pg Mean Corpuscular Hemoglobin Concent 31.2 g/dl Platelet Count 184 K/uL Mean Platelet Volume 12.4 fL Neutrophils (%) (Auto) 68.2 % Lymphocytes (%) (Auto) 21.3 % Monocytes (%) (Auto) 6.5 % Eosinophils (%) (Auto) 3.4 % Basophils (%) (Auto) 0.4 % Neutrophils # (Auto) 3.36 K/uL Lymphocytes # (Auto) 1.05 K/uL Monocytes # (Auto) 0.32 K/uL Eosinophils # (Auto) 0.17 K/uL Basophils # (Auto) 0.02 K/uL RDW Standard Deviation 51.1 fL RDW Coefficient of Variation 15.4 % Immature Granulocyte % (Auto) 0.2 % Immature Granulocyte # (Auto) 0.01 K/uL Prothrombin Time 54.2 SECONDS Prothromb Time International Ratio 5.3 Activated Partial Thromboplast Time 43.6 SECONDS Partial Thromboplastin Ratio 1.7 Sodium Level 137 mmol/L Potassium Level 3.7 mmol/L Chloride Level 99 mmol/L Carbon Dioxide Level 30 mmol/L Anion Gap 9.0 mmol/L Blood Urea Nitrogen 19 mg/dl Creatinine 0.83 mg/dl Est Creatinine Clear Calc Drug Dose 67.4 ml/min Estimated GFR () 84.0 Estimated GFR (Non- 72.5 BUN/Creatinine Ratio 23.1 Random Glucose 163 mg/dl Calcium Level 9.1 mg/dl Total Bilirubin 0.4 mg/dl Aspartate Amino Transf (AST/SGOT) 30 U/L Alanine Aminotransferase (ALT/SGPT) 32 U/L Alkaline Phosphatase 82 U/L Troponin I 0.022 ng/ml Pro-B-Type Natriuretic Peptide 1442 pg/ml Total Protein 7.1 gm/dl Albumin 3.3 gm/dl Globulin 3.8 gm/dl Albumin/Globulin Ratio 0.9 Chemistry Specimen Hemolysis Assessment & Plan 67 y/o F Hx CAD, combined CHF, chronic AF, LBBB, DM, HTN, COPD 2L 02, morbid obesity. Pt states that beginning the previous evening, she developed abdominal distention which she attributed to gastroparesis. She states she takes NTG when this occurs as it causes her to burp which in turn provides a measure of relief. She also states that throughout the day she was more dyspneic than usual with exertion. She uses 2L 02 continuously and 3L with exertion. Her 02 demands have not increased. Considering her cardiac history, she was understandably concerned and presented to the ER for evaluation. The pt had apparently complained of exertional CP to the ER attending but denied this at the time of medical evaluation. She was able to tolerate a full meal this AM and denies any N/V, diaphoresis or lightheadedness. She states she missed her PM dose of Lasix but provides that she feels generally better since arriving in the ER. Initial labs and EKG do not support acute ischemia. Clinical assessment and imaging are not consistent with significant volume overload. 1) Abdominal distention - may have been described as chest discomfort or CP initially - she denies current CP or CP since the previous evening. She has a history of CAD, although a cath in 2017 revealed a patent stent and no additional significant disease. The pt was intended for admission to r/o CT. Considering her symptoms began > 24 hours prior, she is currently asymptomatic and initial EKG and trop are baseline, we will recommend outpt f/u. We are pending a repeat trop - admission will be advised if there is an upward trend. 2) CHF - pt is advised to comply with her diuretics in a timely manner - she does not currently have JVD or crackles to support volume overload and 02 requirement are at baseline. Cont Lasix, Metoprolol - she is not currently receiving an BRANT or ARB - presumably she does not tolerate these meds. 3) AF - cont Metoprolol - INR is slightly high - can likely skip one day of Coumadin or reduce dose. 4) DM - cont Insulin as prescribed 5) COPD - no evidence of acute exacerbation or increased 02 demands - cont prescribed inhalers. Addendum: The pt's troponin doubled although remains WNL - she is c/o SOB following ASA ingestion - we will assign her to overnight observation Total time for this admit including review of labs, meds, imaging, XR, records - discussion with pt and ER attending - 40 min
[2017-10-15] MEDS ORDERED: FUROSEMIDE 40 MG/4 ML VIAL IV STA (02:02)
[2017-10-15] MEDS ORDERED: FUROSEMIDE INJ 20 MG in SYRINGE 0 ML IV ONE (03:00)
[2017-10-15] MEDS ORDERED: GLUCAGON FOR INJ 1 MG VIAL SQ PRN (03:30)
[2017-10-15] MEDS ORDERED: DEXTROSE 50% 50 ML SYR IV PRN (03:30)
[2017-10-15] MEDS ORDERED: GLUCOSE 10 TABS/TUBE PO PRN (03:30)
[2017-10-15] MEDS ORDERED: GLUCOSE 40% GEL 15 GM TUBE PO PRN (03:30)
[2017-10-15] MEDS ORDERED: CYCLOBENZAPRINE HCL 10 MG TAB PO PRN (04:00)
[2017-10-15] MEDS ORDERED: IV FLUIDS COMPLETED PRN (05:30)
[2017-10-15] MEDS: TRAMADOL HCL 50 MG TAB PO SCH ×3 (05:30→22:03)
[2017-10-15] MEDS: ALUMINUM/MAGNESIUM/SIMETH (MAALOX MAX) 30 ML UDC PO PRN ×2 (06:16→09:51)
[2017-10-15] MEDS: BUDESONIDE 0.25 MG/2 ML VIAL (PULMICORT) INH SCH ×2 (07:00→20:00)
[2017-10-15] MEDS: MUPIROCIN 2% OINT 22 GM TUBE EXT SCH ×2 (08:05→21:00)
[2017-10-15] MEDS: HYDROCORTISONE 2.5% CR 30 GM TUBE EXT SCH ×2 (08:05→21:00)
[2017-10-15] MEDS: ASPIRIN 81 MG ECTAB PO SCH (08:07)
[2017-10-15] MEDS: MAGNESIUM OXIDE 400 MG TAB PO SCH ×2 (08:07→21:05)
[2017-10-15] MEDS: OXYBUTYNIN CHLORIDE 5 MG TABCR PO SCH (08:08)
[2017-10-15] MEDS: CYANOCOBALAMIN 500 MCG TAB (VIT B-12) PO SCH (08:08)
[2017-10-15] MEDS ORDERED: FUROSEMIDE 40 MG TAB PO SCH (09:00)
[2017-10-15] MEDS ORDERED: MAGNESIUM OXIDE 400 MG TAB PO SCH (09:00)
[2017-10-15] MEDS ORDERED: METOPROLOL SUCC 25MG EXT REL TAB PO SCH ×2 (09:00)
[2017-10-15] MEDS ORDERED: CYANOCOBALAMIN 500 MCG TAB (VIT B-12) PO SCH (09:00)
[2017-10-15] MEDS ORDERED: BUDESONIDE 0.25 MG/2 ML VIAL (PULMICORT) INH SCH (09:00)
[2017-10-15] MEDS ORDERED: MUPIROCIN 2% EXT SCH (09:00)
[2017-10-15] MEDS: POTASSIUM CHLORIDE 20 MEQ TABCR PO SCH ×2 (09:05→21:05)
[2017-10-15] MEDS: INSULIN ASPART 100 UNITS/ML 3 ML PEN SC SCH ×3 (11:00→21:10)
[2017-10-15] MEDS ORDERED: CEPHALEXIN MONOHYDRATE 500 MG CAP PO ONE (12:15)
[2017-10-15 12:54] LABS: CKMB 2.7 ng/ml (0.5-3.6)
[2017-10-15] MEDS ORDERED: FAMOTIDINE 20 MG TAB PO ONE (13:30)
--- NOTE | 2017-10-15 13:37 | Progress Note ---
Subjective Date of Service: Oct 15, 2017. Subjective Pt evaluation today including: conversation w/ patient, physical exam, chart review, lab review, review of studies, conversation w/ digital media sales consultant, review of inpatient medication list Multiple complaints report epigastric area distention, no appetite, labored breathing,SOB, Problem List Medical Problems: (1) CHF (congestive heart failure) Status: Acute (2) Dyspnea Status: Acute (3) Elevated INR Status: Acute (4) Exertional chest pain Status: Acute (5) Respiratory failure Status: Acute (6) Shortness of breath Status: Acute Review of Systems Constitutional: + weakness, + fatigue, No fever, No chills, No sweats, No weight loss, No problem reported Eyes: No worsening of vision, No eye pain, No redness, No discharge, No diplopia ENT: No hearing loss, No unusual epistaxis, No nasal symptoms, No sore throat, No tinnitus, No dental problems, No trouble swallowing Respiratory: + cough, + shortness of breath, No sputum, No wheezing, No dyspnea on exertion, No dyspnea at rest, No hemoptysis Cardiac: + edema (trace edema), No chest pain, No orthopnea, No PND, No claudication, No palpitations Abdomen: No pain, No nausea, No vomiting, No diarrhea, No constipation Musculoskeletal: No joint pain, No muscle pain, No swelling, No calf pain Female : No dysuria, No urinary frequency, No hematuria, No incontinence, No abnormal vaginal bleeding, No vaginal discharge Neurologic: No memory loss, No paralysis, No weakness, No numbness/tingling, No vertigo, No balance problems Psychiatric: No depression symptoms, No anhedonism, No anxiety, No insomnia, No substance abuse Heme: No abnormal bleeding/bruising, No clotting problems, No swollen lymph nodes, No night sweats Endo: No fatigue, No excessive thirst, No excessive urination Skin: No rash, No itch, No new/changing skin lesions, No color change, No bleeding Objective Vital Signs Date Time Temp Pulse Resp B/P (MAP) Pulse Ox O2 Delivery O2 Flow Rate FiO2 10/15/17 12:00 96 Nasal Cannula 2.0 10/15/17 11:49 36.8 86 22 145/73 (97) 96 Nasal Cannula 2.0 10/15/17 08:13 36.4 91 20 127/66 (86) 95 Nasal Cannula 2.0 10/15/17 08:00 96 Nasal Cannula 2.0 10/15/17 07:00 89 20 96 Nasal Cannula 2.0 10/15/17 05:39 94 18 97 Nasal Cannula 2.0 10/15/17 02:43 115 30 95 Nasal Cannula 3.0 10/15/17 02:30 37.4 110 24 146/68 (94) 98 Nasal Cannula 4.0 10/15/17 01:59 Nasal Cannula 2.0 10/15/17 01:58 83 22 150/92 96 10/15/17 01:44 87 15 150/92 95 Nasal Cannula 10/15/17 01:25 86 10/15/17 01:24 92 10/14/17 23:54 84 24 139/70 100 10/14/17 22:06 100 Nasal Cannula 2.0 10/14/17 22:06 100 Nasal Cannula 2.0 10/14/17 21:43 91 10/14/17 21:23 100 Room Air 10/14/17 21:06 98 Nasal Cannula 2.0 10/14/17 21:06 36.6 90 24 168/76 99 Room Air Physical Exam General Appearance: WD/WN, no apparent distress, + obese, + pertinent finding ( mild labored breathing when talking) ENT: normal ENT inspection, hearing grossly normal Neck: supple, no adenopathy Respiratory/Chest: chest non-tender, + decreased breath sounds, + accessory muscle use, + rales Cardiovascular: regular rate, rhythm, no edema, no gallop Abdomen: normal bowel sounds, non tender, soft, no organomegaly Extremities: normal range of motion, non-tender, normal inspection, no pedal edema, + swelling (1.) Neurologic/Psychiatric: software administrator II-XII nml as tested, no motor/sensory deficits, alert, normal mood/affect, oriented x 3 Skin: normal color, warm/dry Laboratory Results Last 24 Hours Test 10/14/17 21:30 10/15/17 00:11 10/15/17 03:29 10/15/17 05:25 White Blood Count 4.93 K/uL Red Blood Count 4.11 M/uL Hemoglobin 11.6 g/dL Hematocrit 37.2 % Mean Corpuscular Volume 90.5 fL Mean Corpuscular Hemoglobin 28.2 pg Mean Corpuscular Hemoglobin Concent 31.2 g/dl Platelet Count 184 K/uL Mean Platelet Volume 12.4 fL Neutrophils (%) (Auto) 68.2 % Lymphocytes (%) (Auto) 21.3 % Monocytes (%) (Auto) 6.5 % Eosinophils (%) (Auto) 3.4 % Basophils (%) (Auto) 0.4 % Neutrophils # (Auto) 3.36 K/uL Lymphocytes # (Auto) 1.05 K/uL Monocytes # (Auto) 0.32 K/uL Eosinophils # (Auto) 0.17 K/uL Basophils # (Auto) 0.02 K/uL RDW Standard Deviation 51.1 fL RDW Coefficient of Variation 15.4 % Immature Granulocyte % (Auto) 0.2 % Immature Granulocyte # (Auto) 0.01 K/uL Prothrombin Time 54.2 SECONDS 57.5 SECONDS Prothromb Time International Ratio 5.3 5.7 Activated Partial Thromboplast Time 43.6 SECONDS Partial Thromboplastin Ratio 1.7 Sodium Level 137 mmol/L Potassium Level 3.7 mmol/L Chloride Level 99 mmol/L Carbon Dioxide Level 30 mmol/L Anion Gap 9.0 mmol/L Blood Urea Nitrogen 19 mg/dl Creatinine 0.83 mg/dl Est Creatinine Clear Calc Drug Dose 67.4 ml/min Estimated GFR () 84.0 Estimated GFR (Non- 72.5 BUN/Creatinine Ratio 23.1 Random Glucose 163 mg/dl Calcium Level 9.1 mg/dl Total Bilirubin 0.4 mg/dl Aspartate Amino Transf (AST/SGOT) 30 U/L Alanine Aminotransferase (ALT/SGPT) 32 U/L Alkaline Phosphatase 82 U/L Troponin I 0.022 ng/ml 0.043 ng/ml Pro-B-Type Natriuretic Peptide 1442 pg/ml Total Protein 7.1 gm/dl Albumin 3.3 gm/dl Globulin 3.8 gm/dl Albumin/Globulin Ratio 0.9 Chemistry Specimen Hemolysis Bedside Glucose 164 mg/dl Urine Color YELLOW Urine Appearance CLOUDY Urine pH 8.5 Urine Specific [place] 1.014 Urine Protein 1+ Urine Glucose (UA) NEG Urine Ketones NEG Urine Occult Blood 2+ Urine Nitrite POS Urine Bilirubin NEG Urine Urobilinogen NEG Urine Leukocyte Esterase LARGE Urine WBC (Auto) >30 /hpf Urine RBC (Auto) 10-30 /hpf Urine Hyaline Casts (Auto) 1-5 /lpf Urine Epithelial Cells (Auto) 10-20 /lpf Urine Bacteria (Auto) 4+ Test 10/15/17 05:58 10/15/17 07:53 10/15/17 11:15 10/15/17 12:00 Troponin I 0.107 ng/ml Hepatitis C Antibody Screen NEG Bedside Glucose 151 mg/dl 141 mg/dl Creatine Kinase MB Ratio Test 10/15/17 12:06 Creatine Kinase MB 2.7 ng/ml Troponin I 0.088 ng/ml Assessment and Plan 67 y/o white female with the conditions in below abdominal distention likely from gastroparesis. He showed gastroparesis for years, also has umbilical hernia , reported decreased appetite, try Pepcid, encourage up and walk She was seen by GI before, reported no more follow-up with GI because of physician no more practice in this area History of chronic respiratory failure home O2 dependent associated with dyspnea on exertion /COPD 2L 02 continuously and 3L with exertion. Continue nebulizer treatment, home medicine and O2 support Exertional chest pain with elevated troponin , Considering her cardiac history, she was understandably, EKG not remarkable Troponin elevation possible from demanding ischemia, we'll continue monitor worker, trend troponin, cardiology consult history of CAD, a cath in 2017 revealed a patent stent and no additional significant disease, continue aspirin and beta tanner CHF, stable compensated, continue Lasix, Metoprolol, for now she does not have evidence of fluid overload AF - cont Metoprolol - INR is hypertherapeutic , hold Coumadin and follow up INR DM morbid obesity Stable continue current care, plus insulin sliding scale UTI, started Keflex and follow-up culture results Patient is readmission was treated for CHF exacerbation recently DVT prophylaxis is covered, discussed with patient as all the questions Continued [facility] stay due to: multiple IV medications needed Discharge planning: home
[2017-10-15] MEDS: ALBUT/IPRATROP 3MG/0.5MG NEB 3 ML VIAL INH SCH ×2 (15:14→20:00)
[2017-10-15] MEDS: CEPHALEXIN MONOHYDRATE 500 MG CAP PO SCH ×2 (17:07→21:05)
--- NOTE | 2017-10-15 18:56 | CARDIOLOGY CONSULTATION ---
DATE OF CONSULTATION: 10/15/2017 TIME: 1753 p.m. CONSULTING PHYSICIAN: Dr. Dickerson. REASON FOR CONSULTATION: Abdominal distention and elevated troponins. PRIMARY MEMBERSHIP DIRECTOR: Dr. Anthony HISTORY OF PRESENT ILLNESS: Ms. Arellano is a pleasant 67-year-old female who was recently seen at [facility] by Dr. Edgar Anderson. She has a history significant for CAD status post RCA stent in 2003, mechanical aortic valve replacement in 2001 on Coumadin, diabetes, hypertension, dyslipidemia, and asthma. She also has a history of cardiomyopathy and systolic CHF. She was recently admitted to [facility] for acute on chronic systolic CHF and she has been wearing a LifeVest for reported ventricular tachycardia which was apparently diagnosed in July of 2017. This is being managed by Dr. Anthony, her primary health counselor. She presented to [facility] and transferred to [facility] on 10/14/2017. She presented for abdominal distention/bloating. She attributed this to gastroparesis. She took 1 nitroglycerin tablet and this was followed by belching which improved some of her abdominal distention. She points to her lower abdomen for the abdominal distention and indicates that it radiates upward to her epigastric area. In her epigastric area, she describes a fluttering sensation. She does not consider the abdominal distention as a pain but rather an uncomfortable feeling. She also has noted worsening shortness of breath since Monday, 2 days ago. This occurs at any position including exertion and rest. She states that when she first arrived, she was given a breathing treatment and with the breathing treatment, her shortness of breath has significantly improved and is back to her usual baseline. She also received 20 mg of IV Lasix. She denies chest discomfort, syncope, near syncope, palpitations or edema. She states that she typically does have lower extremity edema but has not had edema recently. She does not weigh herself at home and she does not have a scale. She does maintain a low sodium diet. She has noted occasional blood in her stools, which she attributes to her hemorrhoids after straining. She has been compliant with medications including Lasix 40 mg twice daily. She does not exert herself much and uses a scooter to get around due to bilateral hip, bilateral knee, and also back pain. She admits that her abdominal bloating and uncomfortable feeling gets worse with food and is relieved with Maalox. She did not eat her full meal today due to the discomfort. She admits that she also received aspirin x4 upon presentation and this caused epigastric burning. REVIEW OF SYSTEMS: As above and also denies fevers or shaking chills. Review of systems is otherwise negative/unremarkable. PAST MEDICAL HISTORY: 1. Cardiomyopathy. 2. Chronic systolic congestive heart failure. 3. Paroxysmal ventricular tachycardia diagnosed in July 2017 and currently wearing a [employer] LifeVest as per her health counselor, Dr. Anthony. 4. Paroxysmal atrial fibrillation on anticoagulation therapy. 5. Mechanical aortic valve [facility]. Nish placed in 2001. 6. RCA stent, Taxus drug-eluting stent in 2003. 7. Type 2 diabetes. 8. Hypertension. 9. Dyslipidemia. 10. Asthma/COPD. 11. Left bundle branch block. 12. Obesity. INPATIENT MEDICATIONS: Include aspirin 81 mg daily, Pulmicort inhaler twice daily, cephalexin 500 mg p.o. q.i.d., Zetia 10 mg daily, Lasix has been discontinued. Lantus 45 units subQ q.p.m., magnesium oxide 400 mg p.o. b.i.d., metoprolol succinate 25 mg daily, Singulair 10 mg at bedtime, potassium chloride 40 mEq p.o. b.i.d., simvastatin 40 mg daily, tramadol 100 mg q. 8 hours. ALLERGIES: INCLUDE AZITHROMYCIN, EPHEDRINE, ERYTHROMYCIN, HYDROXYZINE, NITROFURANTOIN AND THEOPHYLLINE. SOCIAL HISTORY: Denies tobacco abuse. She is , but her is a disabled from head injury in the 1960s. He resides at a home. She lives alone. She has 2 sons and 1 grandson. FAMILY HISTORY: Father at age of 56 from myocardial infarction. PHYSICAL EXAMINATION: VITAL SIGNS: Temperature 36.6 degrees, heart rate 80 beats per minute, respiration rate 20, blood pressure 113/72 mmHg, oxygen saturation 96% on 2 liters per minute nasal cannula. I's and O's negative 825 mL today. Weight is 100 kilograms. GENERAL: No acute distress. She is alert and oriented. HEENT: Anicteric sclerae. NECK: No appreciable JVD. No bruits. Normal carotid upstrokes bilaterally. CARDIAC EXAMINATION: PMI was nonpalpable. There was no ventricular heave. Regular, normal S1 and S2. 1/6 early peaking systolic ejection murmur best heard at the right upper sternal border. No rubs or gallops. LUNGS: Occasional crackle, otherwise clear and decreased breath sounds throughout. ABDOMEN: Obese, soft, nontender, nondistended, normoactive bowel sounds, no bruits noted. EXTREMITIES: No cyanosis or edema. 2+ radial pulses bilaterally. 2+ dorsalis pedis pulses bilaterally. PSYCHIATRIC: Affect appears appropriate. ECG upon presentation sinus rhythm with PACs and PVC. Left bundle branch block. Telemetry personally reviewed. Predominantly sinus rhythm. There are some short atrial runs. LABORATORY DATA: White blood cell count 4.93, hemoglobin 11.6, platelets 184, troponin 0.022 followed by 0.043, 0.107 and 0.088, albumin 3.3, ProBNP 1442. Sodium 137, potassium 3.7, BUN 19, creatinine 0.83. INR is 5.7. Urinalysis, nitrite positive, leukocyte esterase positive, WBCs elevated, urine bacteria elevated. Chest x-ray image personally reviewed, cardiomegaly noted. No acute cardiopulmonary abnormality per radiology. No significant evidence for CHF. Most recent echocardiogram report from 10/04/2017, moderately to severely reduced LV systolic function with an EF of 30-35%. Global hypokinesis. Moderate aortic stenosis reported. Mild to moderate MR. Type 2 diastolic dysfunction. Estimated PASP 50-55 mmHg. Most recent cardiac catheterization was performed at [facility] on 06/15/2017. Proximal LAD 35%. Proximal RCA 40%. High anterior takeoff for the RCA. Patent proximal LAD stent. ASSESSMENT AND PLAN: 1. Elevated troponins: This is not diagnostic of myocardial infarction. She has not presented with any angina. She had no obstructive coronary artery disease in cardiac catheterization in May of 2017. Would not recommend any further ischemic evaluation at this time. 2. Abdominal distention and discomfort: This does not appear to be secondary to ischemic heart disease. It relieved after belching and also is worse after eating and improves with Maalox. Evaluation as per primary service. 3. Chronic systolic congestive heart failure: She does not appear euvolemic. Can continue outpatient regimen of diuretic. She received IV diuretic today but can resume her oral diuretics tomorrow. 4. Ventricular tachycardia: Details are not known, but she is wearing a LifeVest as prescribed by her primary health counselor, Dr. Anthony. Continue with telemetry. 5. Supratherapeutic INR: Continue to hold Coumadin and resume when her INR becomes therapeutic. 6. Mechanical aortic valve: Continue anticoagulation when appropriate as noted above. 7. Coronary artery disease: No angina. Would recommend continuation of antiplatelet therapy in the form of 81 mg of aspirin. Consider high intensity statin therapy. 8. Paroxysmal atrial fibrillation: Currently in sinus rhythm. On anticoagulation for stroke risk reduction. Continue beta tanner. 9. Cardiomyopathy: She is currently on metoprolol succinate. Would recommend titration of her medications to see if there is any improvement in her left ventricular systolic function over time. Would also recommend adding an BRANT inhibitor if she has not had any intolerance to this in the past. Will start by increasing beta tanner for tomorrow and further titration can be done as appropriate. Could also consider Entresto in place of BRANT inhibitor if it is an option financially. She does not recall discussing an ICD for primary prevention or for secondary prevention given her history of ventricular tachycardia. She is currently wearing a LifeVest and will defer this outpatient workup to her primary health counselor Dr. Anthony. 10. Disposition: Dr. Anderson will resume her cardiology care tomorrow when he returns to the hospital. Greater than 40 minutes spent, with greater than 50% of time spent counseling patient and discussing her presentation and cardiac treatment.
[2017-10-15] MEDS ORDERED: SIMVASTATIN 40 MG TAB PO SCH (21:00)
[2017-10-15] MEDS: MONTELUKAST SOD 10 MG TAB PO SCH (21:05)
[2017-10-15] MEDS: SIMVASTATIN 40 MG TAB PO SCH (21:05)
[2017-10-15] MEDS: EZETIMIBE 10MG TAB PO SCH (21:05)
[2017-10-15] MEDS: FAMOTIDINE 20 MG TAB PO SCH (21:06)
[2017-10-15] MEDS: INSULIN GLARGINE SOLOSTAR 100 UNITS/ML 3 ML PEN SC SCH (21:11)
[2017-10-16] VITALS (12 sets, daily range): BP systolic 112–123; BP diastolic 66–77; PULSE 69–83; TEMP 36.5–36.7; O2SAT 92–98
[2017-10-16] MEDS: TRAMADOL HCL 50 MG TAB PO SCH ×3 (05:42→21:42)
[2017-10-16 06:02] LABS: BASO % 0.4 %; BASO ABS # 0.02 K/uL (0-0.2); EOS % 5.8 %; EOS ABS # 0.29 K/uL (0-0.5); HEMATOCRIT 37.5 % (37-47); HEMOGLOBIN 11.5 g/dL (12.0-16.0); IG# 0.01 K/uL (0.00-0.02); LYMPH ABS # 1.31 K/uL (1.2-3.4); MEAN CELL VOLUME 92.6 fL (80-100); MEAN CORPUSCULAR HEMOGLOBIN 28.4 pg (25-34); MEAN CORPUSCULAR HGB CONC 30.7 g/dl (32-36); MEAN PLATELET VOLUME 11.6 fL (7.4-10.4); MONO % 6.7 %; MONO ABS # 0.34 K/uL (0.11-0.59); NEUT % 60.9 %; NEUT ABS # 3.07 K/uL (1.4-6.5); PLATELET COUNT 176 K/uL (130-400); RED CELL DISTRIBUTION WIDTH CV 15.7 % (11.5-14.5); RED CELL DISTRIBUTION WIDTH SD 53.3 fL (36.4-46.3); WHITE BLOOD COUNT 5.04 K/uL (4.8-10.8)
[2017-10-16] MEDS: INSULIN ASPART 100 UNITS/ML 3 ML PEN SC SCH ×4 (06:30→20:19)
[2017-10-16 06:47] LABS: CALCIUM 8.9 mg/dl (8.5-10.1); CREATININE 0.89 mg/dl (0.60-1.20); POTASSIUM 4.3 mmol/L (3.5-5.1)
[2017-10-16 06:55] LABS: PHOSPHORUS 3.4 mg/dl (2.5-4.9)
[2017-10-16] MEDS: ALBUT/IPRATROP 3MG/0.5MG NEB 3 ML VIAL INH SCH ×4 (07:22→19:11)
[2017-10-16] MEDS: BUDESONIDE 0.25 MG/2 ML VIAL (PULMICORT) INH SCH ×2 (07:22→19:11)
[2017-10-16] MEDS: CEPHALEXIN MONOHYDRATE 500 MG CAP PO SCH ×4 (07:39→20:46)
[2017-10-16] MEDS: POTASSIUM CHLORIDE 20 MEQ TABCR PO SCH ×2 (07:40→20:47)
[2017-10-16] MEDS: CYANOCOBALAMIN 500 MCG TAB (VIT B-12) PO SCH (07:40)
[2017-10-16] MEDS: ASPIRIN 81 MG ECTAB PO SCH (07:40)
[2017-10-16] MEDS: OXYBUTYNIN CHLORIDE 5 MG TABCR PO SCH (07:40)
[2017-10-16] MEDS: MAGNESIUM OXIDE 400 MG TAB PO SCH ×2 (07:41→20:47)
[2017-10-16] MEDS: METOPROLOL SUCC 50MG EXT REL TAB PO SCH (07:41)
[2017-10-16] MEDS: FAMOTIDINE 20 MG TAB PO SCH ×2 (07:41→20:47)
[2017-10-16] MEDS: MUPIROCIN 2% OINT 22 GM TUBE EXT SCH ×2 (07:42→20:45)
[2017-10-16] MEDS: HYDROCORTISONE 2.5% CR 30 GM TUBE EXT SCH ×2 (07:42→20:45)
--- NOTE | 2017-10-16 10:32 | CARDIOLOGY PROGRESS NOTE ---
DATE: 10/16/2017 SUBJECTIVE: Mrs. Arellano is resting comfortably in bed without complaints of chest pain or dyspnea. Abdominal discomfort has improved. OBJECTIVE: VITAL SIGNS: Blood pressure 120/75 with a regular pulse of 82. Respiratory rate is 20 and the patient is afebrile at 36.5 degrees Celsius. Saturations 95% on 2 liters nasal cannula. NECK: Supple with full carotid upstrokes. There are no carotid bruits. Jugular venous pressure is flat at 90 degrees. There is no thyromegaly. CARDIOVASCULAR: Reveals a regular rhythm with a 1/6 basal systolic ejection murmur. LUNGS: Note decreased breath sounds at the bases, but no rales, rhonchi, or wheezes. ABDOMEN: Obese without bruits. EXTREMITIES: Reveal intact radial artery pulses bilaterally. There is no peripheral edema. DATA: CBC notes hemoglobin 11.5, hematocrit 37.5, white count 5.0, platelet count 176,000. Electrolytes note a sodium of 138, potassium 4.3, chloride 103, bicarbonate 35, BUN 21, creatinine 0.89, glucose 130. INR is 4.0. security monitor is benign. IMPRESSION AND PLAN: 1. Abdominal distention -- symptoms have improved. Workup in progress. 2. Ischemic cardiomyopathy -- ejection fraction of 30%-35%. The patient has a LifeVest in place because of paroxysmal ventricular tachycardia back in July 2017. 3. Coronary artery disease -- status post right coronary artery stent in 2003. Cardiac catheterization in July 2017 showed no obstructive coronary artery disease. The stent was patent. 4. [facility] aortic valve replacement -- 2001. 5. Chronic systolic congestive heart failure -- compensated at this time. 6. Hypertension -- controlled. 7. Hypercholesterolemia -- continue statin.
[2017-10-16] MEDS: ALUMINUM/MAGNESIUM/SIMETH (MAALOX MAX) 30 ML UDC PO PRN (12:14)
[2017-10-16] MEDS ORDERED: LOSARTAN POTASSIUM 25 MG TAB PO ONE (13:00)
--- NOTE | 2017-10-16 13:51 | Hospitalist Progress Note ---
Hospitalist Progress Note Date of Service Oct 16, 2017. Subjective Pt evaluation today including: conversation w/ patient, physical exam, chart review, lab review, review of inpatient medication list Voiding: no voiding problems Ms. Arellano is feeling better today though she still feels somewhat weak. She states her baseline at home is pivoting from bed to bsc or scooter, she does not walk or stand much. ROS Constitutional: no chills, aches, sweats or fever Respiratory: no sob,cough, sputum, or wheezing Cardiac: no chest pain, palpitations, edema, orthopnea or lightheadedness GI: no abdominal pain, nausea, vomiting, diarrhea or constipation : no dysuria or hesitancy Extremities: no joint pain or weakness Skin: no rash All other systems reviewed and negative Medications Medications Administered Medications (Trade) Dose Ordered Sig/Naun Route Start Time Stop Time Status Last Admin Dose Admin Aspirin (Aspirin Chew) 324 mg NOW STAT PO 10/14/17 22:32 10/14/17 22:33 DC 10/14/17 22:45 324 MG Aspirin (Ecotrin Tab) 81 mg DAILY PO 10/15/17 09:00 11/14/17 08:59 10/16/17 07:40 81 MG Diphenhydramine HCl (Benadryl Cap) 25 mg QAM PO 10/15/17 09:00 10/16/17 10:35 DC 10/16/17 07:42 25 MG EZETIMIBE (Zetia Tab) 10 mg QPM PO 10/15/17 21:00 11/14/17 20:59 10/15/17 21:05 10 MG Insulin Glargine (Lantus Solostar Pen) 45 units QPM SC 10/15/17 21:00 11/14/17 20:59 10/15/17 21:11 45 UNITS Oxybutynin Chloride (Ditropan-Xl Tab) 10 mg DAILY PO 10/15/17 09:00 11/14/17 08:59 10/16/17 07:40 10 MG Potassium Chloride (Klor-Con Tab) 40 meq BID PO 10/15/17 09:00 11/14/17 08:59 10/16/17 07:40 40 MEQ Tramadol HCl (Ultram Tab) 100 mg Q8 PO 10/15/17 06:00 11/14/17 05:59 10/16/17 05:42 100 MG Insulin Aspart (novoLOG ASPART) SLIDING SCALE G... ACHS SC 10/15/17 07:00 11/14/17 06:59 10/15/17 21:10 1 UNITS Al Hydrox/Mg Hydrox/Simethicone (Maalox Max Susp) 15 ml Q4H PRN PO 10/15/17 01:30 11/14/17 01:29 10/16/17 12:14 15 ML Nitroglycerin (Nitroglycerin 2% Oint) 1 inch ONE STAT EXT 10/15/17 01:28 10/15/17 01:36 DC 10/15/17 01:44 1 INCH Furosemide 20 mg/ Syringe 2 ml @ 4 mls/min TODAY@0300 ONCE IV 10/15/17 03:00 10/15/17 03:01 DC 10/15/17 02:42 4 MLS/MIN Albuterol Sulfate (Ventolin 0.083% 2.5MG/3ML Neb) 2.5 mg NOW STAT INH 10/15/17 01:28 10/15/17 01:57 DC 10/15/17 01:28 2.5 MG Montelukast Sodium (Singulair Tab) 10 mg HS PO 10/15/17 21:00 11/14/17 20:59 10/15/17 21:05 10 MG Budesonide (Pulmicort Respules 0.25MG/ 2ML Neb Soln) 0.5 mg BIDR INH 10/15/17 08:00 11/14/17 07:59 10/16/17 07:22 0.5 MG Cyanocobalamin (Vitamin B-12 Tab) 1,000 mcg DAILY PO 10/15/17 09:00 11/14/17 08:59 10/16/17 07:40 1,000 MCG Magnesium Oxide (Mag-Ox Tab) 400 mg BID PO 10/15/17 09:00 11/14/17 08:59 10/16/17 07:41 400 MG Metoprolol Succinate (Toprol Xl Tab) 25 mg DAILY PO 10/15/17 09:00 10/15/17 18:11 DC 10/15/17 08:09 25 MG Simvastatin (Zocor Tab) 40 mg QPM PO 1/21/18 21:00 11/14/17 20:59 10/15/17 21:05 40 MG Cephalexin Monohydrate (Keflex Cap) 500 mg NOW ONCE PO 10/15/17 12:15 10/15/17 12:16 DC 10/15/17 12:37 500 MG Cephalexin Monohydrate (Keflex Cap) 500 mg QID PO 10/15/17 17:00 10/20/17 16:59 10/16/17 12:42 500 MG Albuterol/ Ipratropium (Duoneb) 3 ml QIDR INH 10/15/17 16:00 11/14/17 15:59 10/16/17 07:22 3 ML Famotidine (Pepcid Tab) 20 mg BID PO 10/15/17 21:00 11/14/17 20:59 10/16/17 07:41 20 MG Famotidine (Pepcid Tab) 20 mg NOW ONCE PO 10/15/17 13:30 10/15/17 13:39 DC 10/15/17 14:40 20 MG Metoprolol Succinate (Toprol Xl Tab) 50 mg DAILY PO 10/16/17 09:00 11/14/17 08:59 10/16/17 07:41 50 MG Objective Vital Signs Date Time Temp Pulse Resp B/P (MAP) Pulse Ox O2 Delivery O2 Flow Rate FiO2 10/16/17 12:08 36.7 70 20 112/71 (85) 92 Nasal Cannula 2.0 10/16/17 07:45 95 Nasal Cannula 2.0 10/16/17 07:22 73 20 98 Nasal Cannula 2.0 10/16/17 07:10 36.5 82 20 122/77 (92) 95 Nasal Cannula 2.0 10/16/17 04:00 Nasal Cannula 2.0 10/16/17 04:00 36.7 70 20 118/68 (85) Nasal Cannula 2.0 10/16/17 00:00 Nasal Cannula 2.0 10/15/17 23:56 36.8 68 18 116/72 (87) 98 Nasal Cannula 2.0 10/15/17 21:44 76 20 98 Nasal Cannula 2.0 10/15/17 20:11 97 Nasal Cannula 2.0 10/15/17 19:26 36.8 77 22 115/69 (84) 97 Room Air 10/15/17 16:00 96 Nasal Cannula 2.0 10/15/17 15:25 36.6 80 20 113/72 (86) 97 Nasal Cannula 2.0 10/15/17 15:14 84 20 95 Nasal Cannula 2.0 Physical Exam Notes: General: no distress Eyes: normal inspection, PERLL Respiratory: chest non tender, clear to auscultation, normal breath sounds, no respiratory distress, no accessory muscle use Cardiac: regular rate and rhythm, no rub or gallop, no murmur, no edema, no jvd GI/: active bowel sounds, no abd pain or tenderness, soft, non distended Extremities: normal range of motion, normal strength, non tender Neuro/Psych: alert and oriented x 3, normal mood and affect Skin: normal color, dry Laboratory Results Last 24 Hours Test 10/15/17 16:53 10/15/17 20:13 10/16/17 04:44 10/16/17 05:39 Bedside Glucose 212 mg/dl 185 mg/dl 61 mg/dl 146 mg/dl White Blood Count 5.04 K/uL Red Blood Count 4.05 M/uL Hemoglobin 11.5 g/dL Hematocrit 37.5 % Mean Corpuscular Volume 92.6 fL Mean Corpuscular Hemoglobin 28.4 pg Mean Corpuscular Hemoglobin Concent 30.7 g/dl Platelet Count 176 K/uL Mean Platelet Volume 11.6 fL Neutrophils (%) (Auto) 60.9 % Lymphocytes (%) (Auto) 26.0 % Monocytes (%) (Auto) 6.7 % Eosinophils (%) (Auto) 5.8 % Basophils (%) (Auto) 0.4 % Neutrophils # (Auto) 3.07 K/uL Lymphocytes # (Auto) 1.31 K/uL Monocytes # (Auto) 0.34 K/uL Eosinophils # (Auto) 0.29 K/uL Basophils # (Auto) 0.02 K/uL RDW Standard Deviation 53.3 fL RDW Coefficient of Variation 15.7 % Immature Granulocyte % (Auto) 0.2 % Immature Granulocyte # (Auto) 0.01 K/uL Prothrombin Time 40.5 SECONDS Prothromb Time International Ratio 4.0 Sodium Level 138 mmol/L Potassium Level 4.3 mmol/L Chloride Level 103 mmol/L Carbon Dioxide Level 35 mmol/L Anion Gap 0.0 mmol/L Blood Urea Nitrogen 21 mg/dl Creatinine 0.89 mg/dl Est Creatinine Clear Calc Drug Dose 64.3 ml/min Estimated GFR () 77.2 Estimated GFR (Non- 66.6 BUN/Creatinine Ratio 23.6 Random Glucose 130 mg/dl Calcium Level 8.9 mg/dl Phosphorus Level 3.4 mg/dl Magnesium Level 2.4 mg/dl Thyroid Stimulating Hormone (TSH) 1.840 uIu/ml Test 10/16/17 07:34 10/16/17 11:44 Bedside Glucose 108 mg/dl 97 mg/dl Assessment and Plan Ms. Arellano is a 67 y/o woman here for abdominal discomfort and chest pain Abdominal distention likely from gastroparesis - history of gastroparesis - unable to tolerate reglan in the past. - continue pepcid - largely resolved - no nausea or vomiting, no abdominal pain History of chronic respiratory failure, COPD - continue 2L 02 - patient uses 2-3L at home. - Continue nebulizer treatment, home medicine Exertional chest pain with elevated troponin , - EKG not remarkable - Elevated troponin - cardiology consulted and does not believe this is due to ischemia CHF - stable - stable compensated, continue Lasix, Metoprolol - cardiology recommended starting BRANT - patient has tried in the past but states "lisinopril damn near killed me" with shaking and diaphoresis. 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 She will change her snack to something like cottage cheese tonight. - continue ss, lantus, bsg ac&hs UTI - Keflex started 10/15- no culture pending Dispo - patient refused PT as she had an unknown incident getting onto the bedside commode today and didn't feel strong enough. Attempt eval tomorrow as patient lives alone DVT prophylaxis - contraindicated due to supratherapeutic INR
[2017-10-16] MEDS: SIMVASTATIN 40 MG TAB PO SCH (20:46)
[2017-10-16] MEDS: MONTELUKAST SOD 10 MG TAB PO SCH (20:46)
[2017-10-16] MEDS: EZETIMIBE 10MG TAB PO SCH (20:48)
[2017-10-16] MEDS: INSULIN GLARGINE SOLOSTAR 100 UNITS/ML 3 ML PEN SC SCH (20:54)
[2017-10-17] VITALS (8 sets, daily range): BP systolic 118–132; BP diastolic 65–72; PULSE 72–80; TEMP 36.5–36.9; O2SAT 98–100; Ht 152.4 cm; Wt 97.4 kg
[2017-10-17] MEDS: TRAMADOL HCL 50 MG TAB PO SCH ×2 (05:28→13:34)
[2017-10-17] MEDS: ALBUT/IPRATROP 3MG/0.5MG NEB 3 ML VIAL INH SCH ×2 (07:05→11:05)
[2017-10-17] MEDS: BUDESONIDE 0.25 MG/2 ML VIAL (PULMICORT) INH SCH (07:05)
[2017-10-17] MEDS: INSULIN ASPART 100 UNITS/ML 3 ML PEN SC SCH ×2 (08:46→11:40)
[2017-10-17] MEDS: METOPROLOL SUCC 50MG EXT REL TAB PO SCH (08:50)
[2017-10-17] MEDS: MAGNESIUM OXIDE 400 MG TAB PO SCH (08:50)
[2017-10-17] MEDS: CYANOCOBALAMIN 500 MCG TAB (VIT B-12) PO SCH (08:50)
[2017-10-17] MEDS: ASPIRIN 81 MG ECTAB PO SCH (08:50)
[2017-10-17] MEDS: CEPHALEXIN MONOHYDRATE 500 MG CAP PO SCH ×2 (08:51→13:34)
[2017-10-17] MEDS: OXYBUTYNIN CHLORIDE 5 MG TABCR PO SCH (08:51)
[2017-10-17] MEDS: FAMOTIDINE 20 MG TAB PO SCH (08:51)
[2017-10-17] MEDS: POTASSIUM CHLORIDE 20 MEQ TABCR PO SCH (08:51)
[2017-10-17] MEDS: MUPIROCIN 2% OINT 22 GM TUBE EXT SCH (08:52)
[2017-10-17] MEDS: HYDROCORTISONE 2.5% CR 30 GM TUBE EXT SCH (08:52)
[2017-10-17] MEDS ORDERED: LOSARTAN POTASSIUM 25 MG TAB PO SCH (09:00)
[2017-10-17] MEDS ORDERED: MICONAZOLE NITRATE POWDER 43 GM EXT PRN (12:00)
[2017-10-17] MEDS ORDERED: FAMO1TAB47 PO (13:05)
--- NOTE | 2017-10-17 13:09 | Discharge Instructions ---
Discharge Instructions Date of Service Oct 17, 2017. Admission Reason for Admission: Epigastric Discomfort, Exertional Dyspnea Discharge Discharge Diagnosis / Problem: Chest pain (non-cardiac), epigastric pain, GERD Discharge Goals Goal(s): Decrease discomfort, Improve function Activity Recommendations Activity Limitations: resume your previous activity . Instructions / Follow-Up Instructions / Follow-Up Medications: - RANITIDINE: take 20mg twice a day for reflux symptoms Work up for chest pain and epigastric pain did not reveal any specific diagnosis. Cardiology did not feel that your pain was cardiac in nature, normal heart enzymes, no changes on EKG. FOLLOW UP - Dr. Howard in one week - Dr. Felton in 2-3 weeks for follow up with [facility] Current Hospital Diet Patient's current hospital diet: AHA Diet (Heart Healthy), Diabetes Type 2 Diet Discharge Diet Recommended Diet: AHA Diet (Heart Healthy), Diabetes Type 2 Diet Pending Studies Studies pending at discharge: no Medical Emergencies . Who to Call and When: Medical Emergencies: If at any time you feel your situation is an emergency, please call 911 immediately. . Non-Emergent Contact Non-Emergency issues call your: Primary Care Provider Call Non-Emergent contact if: you have any medication questions . . "Provider Documentation" section prepared by Torrey Jauregui. . VTE Core Measure Inpt VTE Proph given/why not?: Warfarin (Coumadin) [place] Drug Monitoring Program Search Results: no issues identified
--- NOTE | 2017-10-18 08:41 | Discharge Summary ---
Discharge Summary Date of Service Oct 18, 2017. Discharge Summary Admission Date: Oct 15, 2017 at 01:25 Discharge Date: Oct 17, 2017 Discharge Disposition: Home Principal Diagnosis: Chest pain Problems/Secondary Diagnoses: Epigastric pain DM Immunizations: Have You Had Influenza Vaccine: Unknown History of Tetanus Vaccine?: Unknown History of Pneumococcal: Unknown History of Hepatitis B Vaccine: Unknown Procedures: none Consultations: Cardiology Medication Reconciliation New Medications: Famotidine (Famotidine) 20 Mg Tab 20 MG PO BID, #60 TAB 2 Refills Continued Medications: Albuterol Hfa (Ventolin Hfa) 200 Puffs/60422 Mcg Aers 2 PUFFS INH Q6H PRN for SOB/Wheezing, INHALER Albuterol Sulf (Proventil 0.083% 2.5MG/3ML) 2.5 Mg/3 Ml Nebu 2.5 MG INH BID, EA Ascorbic Acid (Chewable Vitamin C) 500 Mg Chw 500 MG PO QAM Aspirin (Aspirin 81) 81 Mg Tab 81 MG PO DAILY Budesonide (Inhalation) (Pulmicort Respules 0.25MG/2ML) 0.25 Mg/2 Ml Radha 2 ML INH BID, EA Cholecalciferol (Vitamin D3) 2,000 Unit Cap 3 CAP PO DAILY, CAP 3 Refills Cyanocobalamin (Vitamin B-12) 1,000 Mcg Tab 1000 MCG PO DAILY, TAB Cyclobenzaprine Hcl (Flexeril) 10 Mg Tab 10 MG PO BID PRN for Muscle Spasms, TAB Diphenhydramine Hcl (Benadryl Allergy) 25 Mg Cap 25 MG PO QAM, 2 Refills Diphenhydramine Hcl (Benadryl Allergy) 25 Mg Cap 25 MG PO Q4 PRN for Itching Epinephrine (Epipen) 0.3 Mg/0.3 Ml Inj 0.3 MG IM UD PRN for Allergic Reaction, BOX Ezetimibe (Zetia) 10 Mg Tab 10 MG PO QPM, TAB Furosemide (Lasix) 40 Mg Tab 40 MG PO BID, #60 TAB 6 Refills Hydrocortisone (Hydrocortisone) 90 Appln/30 Gm Cr 1 APPLN TOP BID apply to groin Insulin Glargine (Lantus) 100 Unit/Ml Inj 45 UNITS SC QPM, VIAL Lorazepam (Ativan) 0.5 Mg Tab 0.5 MG PO BID PRN for Anxiety, TAB Magnesium Oxide (Mag-Ox) 400 Mg Tab 400 MG PO AMPM, TAB Metoprolol Succ (Toprol Xl) (Toprol-Xl) 25 Mg Tabcr 25 MG PO DAILY, #30 TAB Montelukast Sodium (Singulair) 10 Mg Tab 10 MG PO HS, TAB Mupirocin 2% (Bactroban 2%) 30 Gm Cr 1 APPLN EXT BID apply to groin Nitroglycerin (Nitrolingual Pumpspray) 0.4 Mg/Organ Spr 0.4 MG PO UD PRN for Chest Pain Oxybutynin Chloride Er (Ditropan Xl) 10 Mg Tab 10 MG PO DAILY, TAB Potassium Chloride (Klor-Con M20) 20 Meq Tabcr 40 MEQ PO BID, #60 DOSE 6 Refills Simvastatin (Zocor) 40 Mg Tab 40 MG PO QPM, TAB Tramadol (Ultram) 50 Mg Tab 100 MG PO Q8, TAB Warfarin Sod (Jantoven) 3 Mg Tab 9 MG PO BID, TAB PT STATED SHE WAS TOLD TO TAKE 9MG TWICE A DAY POST HOSPITAL DISCHARGE ON 10/09/17. HAS BEEN TAKING DIRECTED Discharge Exam Patient feeling well, no issues overnight. Breathing well, no chest pain, no epigastric discomfort. Plans to follow up closely with her PCP Dr. Howard. Review of Systems: Constitutional: + weakness (chronic), No fever, No chills, No sweats, No weight loss, No fatigue, No problem reported Eyes: No worsening of vision, No eye pain, No redness, No discharge, No diplopia, No problem reported ENT: No hearing loss, No unusual epistaxis, No nasal symptoms, No sore throat, No tinnitus, No dental problems, No trouble swallowing, No problem reported Respiratory: + dyspnea on exertion, No cough, No sputum, No wheezing, No shortness of breath, No dyspnea at rest, No hemoptysis, No problem reported Cardiovascular: No chest pain, No orthopnea, No PND, No edema, No claudication, No palpitations, No problem reported Abdomen: No pain, No nausea, No vomiting, No diarrhea, No constipation, No GI bleeding, No problem reported Musculoskeletal: + joint pain (chronic), No muscle pain, No swelling, No calf pain, No problem reported Genitourinary - Female: No dysuria, No urinary frequency, No urinary urgency , No urinary incontinence Neurologic: + weakness, + balance problems, No memory loss, No paralysis, No numbness/tingling, No vertigo, No problem reported Psychiatric: + depression symptoms, No anhedonism, No anxiety, No insomnia, No substance abuse, No problem reported Endocrine: No fatigue, No excessive thirst, No excessive urination, No problem reported Hematologic / Lymphatic: No abnormal bleeding/bruising, No clotting problems , No swollen lymph nodes, No night sweats, No problem reported Integumentary: No rash, No itch, No new/changing skin lesions, No color change, No bleeding, No problem reported Physical Exam: General Appearance: no apparent distress, + obese Eyes: normal inspection, EOMI, sclerae normal ENT: normal ENT inspection, hearing grossly normal, pharynx normal Neck: supple, no adenopathy, no JVD, trachea midline Respiratory/Chest: chest non-tender, lungs clear, normal breath sounds, no respiratory distress, no accessory muscle use Cardiovascular: regular rate, rhythm, no edema, no gallop, no JVD, no murmur , normal peripheral pulses Abdomen / GI: normal bowel sounds, non tender, soft, no organomegaly Extremities: normal inspection, no calf tenderness, normal capillary refill , no pedal edema, normal range of motion, pelvis stable Neurologic/Psychiatric: house worker general II-XII nml as tested, alert, normal mood/affect , normal reflexes, oriented x 3, + motor weakness (generalized, can transfer to power chair but cannot ambulate) Skin: normal color, warm/dry, no rash Hospital Course Ms. Arellano is a 67 y/o woman here for abdominal discomfort and chest pain Abdominal distention likely from gastroparesis - history of gastroparesis - unable to tolerate reglan in the past. - continue pepcid BID on discharge - largely resolved - no nausea or vomiting, no abdominal pain History of chronic respiratory failure, COPD - continue 2L 02 - patient uses 2-3L at home. - Continue nebulizer treatment, home medicine Exertional chest pain with elevated troponin , - EKG not remarkable - Elevated troponin - cardiology consulted and does not believe this is due to ischemia, no further work up - she will continue to wear life vest, follow up with her civilian technician CHF - stable, euvolemic - stable compensated, continue Lasix BID, Metoprolol - cardiology recommended starting BRANT - patient has tried in the past but states "lisinopril damn near killed me" with shaking and diaphoresis - she can discuss trying Losartan with her PCP or civilian technician AF/ supratherapeutic INR - cont Metoprolol - continue to check INR at home and ask for instructions from PCP, INR 4.0 on discharge DM - continue ss, lantus, bsg ac&hs UTI - no fever, no leukocytosis, simple cystitis - completed three days of antibiotics in hospital Dispo - d/c to home DVT prophylaxis - contraindicated due to supratherapeutic INR Total Time Spent: Greater than 30 minutes This includes examination of the patient, discharge planning, medication reconciliation, and communication with other providers. Discharge Instructions Please refer to the electronic Patient Visit Report (Discharge Instructions) for additional information. Follow-Up Dr. Howard in one week Dr. Anthony in 2-3 weeks Additional Copies To Javi Anthony M.D.; John Howard M.D.
== END 2017-10-17 14:39 | disposition home or self-care (01) ==
LOC: C.EDC 21:02 → EDBD 21:02 → C.MED 10-15 01:25 → ENRESERV 10-15 01:41
PROVIDERS: ADMIT Internal Medicine; ATTEND Internal Medicine
DX: R07.9 Chest pain, unspecified (principal); R10.13 Epigastric pain; R79.89 Other specified abnormal findings of blood chemistry; N39.0 Urinary tract infection, site not specified; I11.0 Hypertensive heart disease with heart failure; I50.22 Chronic systolic (congestive) heart failure; E11.9 Type 2 diabetes mellitus without complications; I48.91 Unspecified atrial fibrillation; I25.5 Ischemic cardiomyopathy; E78.00 Pure hypercholesterolemia, unspecified; E78.5 Hyperlipidemia, unspecified; I44.7 Left bundle-branch block, unspecified; E66.01 Morbid (severe) obesity due to excess calories; I25.10 Atherosclerotic heart disease of native coronary artery without angina pectoris; J44.9 Chronic obstructive pulmonary disease, unspecified; J96.10 Chronic respiratory failure, unspecified whether with hypoxia or hypercapnia; Z68.41 Body mass index [BMI] 40.0-44.9, adult; Z79.82 Long term (current) use of aspirin; Z79.4 Long term (current) use of insulin; Z79.01 Long term (current) use of anticoagulants; Z95.2 Presence of prosthetic heart valve; Z99.81 Dependence on supplemental oxygen; Z82.49 Family history of ischemic heart disease and other diseases of the circulatory system